=== PATIENT | male | born 1960 | race Caucasian/White ===

== ENCOUNTER 2022-01-03 05:55 | Outpatient (RCR) | payer BC, SELFPAY ==
[2022-01-03 06:15] LABS: Hematocrit 36.6 % (37.0-53.0); Hemoglobin* 11.9 gm/dL (13.5-17.5); Mean Corpuscular HGB Conc 33 gm/dL (32-36); Mean Corpuscular Hemoglobin 28 pg (26-34); Mean Corpuscular Volume 87 fL (80-100); Neutrophils Percent Auto 59.2 % (42.0-72.0); Platelet Count* 132 K/uL (140-440); RDW Coefficient of Variation % 16.2 % (11.5-15.5)
[2022-01-03 06:16] LABS: Basophils Absolute Auto 0.02 K/uL (0.00-0.30); Basophils Percent Auto 0.4 % (0.0-3.0); Eosinophils Absolute Auto 0.19 K/uL (0.00-0.50); Eosinophils Percent Auto 3.8 % (0.0-7.0); Immature Granulocytes Abs Auto 0.03 K/uL (0.00-0.30); Lymphocytes Absolute Auto 1.45 K/uL (0.90-2.90); Neutrophils Absolute Auto 2.96 K/uL (1.7-7.0)
[2022-01-03 06:17] LABS: Slide Review Reflex No
--- NOTE | 2022-01-03 17:39 | ONC.NURNOTE ---
Dr. Noonan reviewed labs and patient was called and given results. Platelets slightly lower then 11/29/2021 but still in good range. Plan is for redraw in 4 weeks
== END 2022-01-20 23:59 | disposition home or self-care (01) ==
LOC: CCIC 05:55
PROVIDERS: PCP Family Medicine; Visit Provider Internal Medicine Hematology & Oncology
DX: D69.6 Thrombocytopenia, unspecified (principal); D64.9 Anemia, unspecified
CPT/HCPCS: 36415; 85025

== ENCOUNTER 2022-02-18 05:36 | Outpatient (RCR) | payer BC, SELFPAY ==
[2022-02-18 06:19] LABS: Basophils Absolute Auto 0.03 K/uL (0.00-0.30); Basophils Percent Auto 0.6 % (0.0-3.0); Eosinophils Absolute Auto 0.17 K/uL (0.00-0.50); Eosinophils Percent Auto 3.3 % (0.0-7.0); Hemoglobin* 11.5 gm/dL (13.5-17.5); Immature Granulocytes Abs Auto 0.04 K/uL (0.00-0.30); Lymphocytes Absolute Auto 1.31 K/uL (0.90-2.90); Lymphocytes Percent Auto 25.2 % (20-44); Mean Corpuscular HGB Conc 32 gm/dL (32-36); Mean Corpuscular Hemoglobin 29 pg (26-34); Mean Corpuscular Volume 92 fL (80-100); Monocytes Percent Auto 8.3 % (0.0-11.0); Neutrophils Absolute Auto 3.21 K/uL (1.7-7.0); Neutrophils Percent Auto 61.8 % (42.0-72.0); Platelet Count* 156 K/uL (140-440); RDW Coefficient of Variation % 16.1 % (11.5-15.5); Red Blood Count 3.92 m/uL (4.30-5.90); White Blood Count* 5.19 K/uL (4.50-11.00)
[2022-02-18 06:21] LABS: Slide Review Reflex No
--- NOTE | 2022-02-22 15:04 | ONC.NURNOTE ---
Patient called and screenplay writer let him know that Dr. Noonan reviewed his platelets and they are now WNL so no further need for hematology. She believes it was due to his sepsis.
== END 2022-08-17 23:59 | disposition home or self-care (01) ==
LOC: CCIC 05:36
PROVIDERS: PCP Family Medicine; Visit Provider Internal Medicine Hematology & Oncology
DX: D69.6 Thrombocytopenia, unspecified (principal)
CPT/HCPCS: 36415; 85025

== ENCOUNTER 2022-07-31 10:58 | Outpatient (CLI) | payer BC, SELFPAY ==
[2022-07-31 13:51] LABS: Chloride* 112 mmol/L (96-114)
[2022-07-31 13:52] LABS: Potassium* 5.7 mmol/L (3.6-5.1); Sodium* 141 mmol/L (135-149)
[2022-07-31 13:54] LABS: Estimated Glomerular Filt Rate 37 ml/min
[2022-07-31 13:55] LABS: Blood Urea Nitrogen* 53 mg/dL (7-30); Calcium* 8.8 mg/dL (8.4-10.6); Carbon Dioxide* 24 mmol/L (20-32); Glucose* 263 mg/dL (60-115)
[2022-07-31 13:58] LABS: Cholesterol* 223 mg/dL (90-199); HDL Cholesterol* 29 mg/dL (>=40)
[2022-07-31 14:51] LABS: LDL Cholesterol Calculated 61 mg/dL (<100); Triglycerides* 667 mg/dL (40-149)
[2022-07-31 15:48] LABS: Creatinine Urine 64.6 mg/dL
[2022-07-31 17:20] LABS: Microalbumin Creatinine Ratio 2810 mg/g (0-30); Microalbumin Urine 182 mg/dL
== END 2022-07-31 10:59 | disposition home or self-care (01) ==
PROVIDERS: PCP Family Medicine; Visit Provider Family Medicine
DX: E11.21 Type 2 diabetes mellitus with diabetic nephropathy (principal); E11.9 Type 2 diabetes mellitus without complications; I10 Essential (primary) hypertension; Z12.5 Encounter for screening for malignant neoplasm of prostate; Z79.4 Long term (current) use of insulin; D69.6 Thrombocytopenia, unspecified
CPT/HCPCS: 80048; 80061; 82043; 82570; 84153

== ENCOUNTER 2023-02-06 11:30 | Outpatient (CLI) | payer BC, SELFPAY ==
[2023-02-06 13:41] LABS: Basophils Absolute Auto 0.02 K/uL (0.00-0.30); Basophils Percent Auto 0.4 % (0.0-3.0); Eosinophils Absolute Auto 0.14 K/uL (0.00-0.50); Eosinophils Percent Auto 2.8 % (0.0-7.0); Hematocrit 37.2 % (37.0-53.0); Immature Granulocytes Abs Auto 0.02 K/uL (0.00-0.30); Immature Granulocytes Pct Auto 0.4 %; Lymphocytes Percent Auto 19.1 % (20-44); Mean Corpuscular HGB Conc 32 gm/dL (32-36); Mean Corpuscular Hemoglobin 30 pg (26-34); Mean Corpuscular Volume 92 fL (80-100); Monocytes Percent Auto 7.6 % (0.0-11.0); Neutrophils Absolute Auto 3.47 K/uL (1.7-7.0); Neutrophils Percent Auto 69.7 % (42.0-72.0); Platelet Count* 135 K/uL (140-440); RDW Coefficient of Variation % 14.9 % (11.5-15.5); Red Blood Count 4.03 m/uL (4.30-5.90); White Blood Count* 4.98 K/uL (4.50-11.00)
[2023-02-06 13:49] LABS: Slide Review Reflex No
[2023-02-06 14:15] LABS: Chloride* 105 mmol/L (96-114); Sodium* 138 mmol/L (135-149)
[2023-02-06 14:16] LABS: Potassium* 5.2 mmol/L (3.6-5.1)
[2023-02-06 14:18] LABS: Carbon Dioxide* 23 mmol/L (20-32); Cholesterol* 256 mg/dL (90-199); Creatinine* 1.9 mg/dL (0.5-1.5); Estimated Glomerular Filt Rate 39 ml/min
[2023-02-06 14:19] LABS: Blood Urea Nitrogen* 38 mg/dL (7-30); Calcium* 8.5 mg/dL (8.4-10.6); Glucose* 124 mg/dL (60-115); HDL Cholesterol* 24 mg/dL (>=40)
[2023-02-06 14:41] LABS: LDL Cholesterol Calculated -40 mg/dL (<100); Triglycerides* 1358 mg/dL (40-149)
== END 2023-02-06 11:31 | disposition home or self-care (01) ==
PROVIDERS: PCP Family Medicine; Visit Provider Family Medicine
DX: E11.9 Type 2 diabetes mellitus without complications (principal); I10 Essential (primary) hypertension; E78.2 Mixed hyperlipidemia; Z79.4 Long term (current) use of insulin
CPT/HCPCS: 80048; 80061; 85025

== ENCOUNTER 2023-04-14 13:14 | Outpatient (CLI) | payer BC, SELFPAY ==
[2023-04-14 22:01] LABS: Chloride* 111 mmol/L (96-114); Sodium* 143 mmol/L (135-149)
[2023-04-14 22:02] LABS: Potassium* 4.7 mmol/L (3.6-5.1)
[2023-04-14 22:04] LABS: Anion Gap 10 mEq/L (7-15); Blood Urea Nitrogen* 55 mg/dL (7-30); Carbon Dioxide* 22 mmol/L (20-32); Creatinine* 2.4 mg/dL (0.5-1.5); Estimated Glomerular Filt Rate 30 ml/min
[2023-04-14 22:05] LABS: Calcium* 8.7 mg/dL (8.4-10.6); Glucose* 85 mg/dL (60-115)
[2023-04-14 22:07] LABS: Basophils Percent Auto 0.2 % (0.0-3.0); Eosinophils Percent Auto 1.3 % (0.0-7.0); Hematocrit 38.4 % (37.0-53.0); Hemoglobin* 11.7 gm/dL (13.5-17.5); Lymphocytes Percent Auto 16.9 % (20-44); Mean Corpuscular HGB Conc 31 gm/dL (32-36); Mean Corpuscular Hemoglobin 29 pg (26-34); Mean Corpuscular Volume 96 fL (80-100); Monocytes Percent Auto 7.3 % (0.0-11.0); Neutrophils Percent Auto 73.4 % (42.0-72.0); Platelet Count* 169 K/uL (140-440); RDW Coefficient of Variation % 14.9 % (11.5-15.5); Red Blood Count 3.99 m/uL (4.30-5.90); White Blood Count* 5.32 K/uL (4.50-11.00)
[2023-04-14 22:08] LABS: Basophils Absolute Auto 0.01 K/uL (0.00-0.30); Eosinophils Absolute Auto 0.07 K/uL (0.00-0.50); Immature Granulocytes Abs Auto 0.05 K/uL (0.00-0.30); Immature Granulocytes Pct Auto 0.9 %
[2023-04-14 22:12] LABS: Slide Review Reflex No
[2023-04-14 22:34] LABS: PCR FLU A Negative PCR FLU A (Negative); PCR FLU B Negative PCR FLU B (Negative); PCR RSV Negative PCR RSV (Negative)
[2023-04-14 23:01] LABS: SARS PCR* Negative SARS-CoV-2 (Negative)
== END 2023-04-14 13:15 | disposition home or self-care (01) ==
PROVIDERS: PCP Family Medicine; Visit Provider Family Medicine
DX: R06.02 Shortness of breath (principal); I10 Essential (primary) hypertension; R06.09 Other forms of dyspnea
CPT/HCPCS: 80048; 85025; 87631

== ENCOUNTER 2023-04-16 11:53 | Emergency (ER) | payer BC, SELFPAY ==
[2023-04-16] VITALS (28 sets, daily range): BP systolic 148–192; BP diastolic 77–140; PULSE 60–73; RESP 16–20; TEMP 36.4; O2SAT 89–98; BMI 40.0
--- NOTE | 2023-04-16 13:03 | ED.GENADULT ---
HPI - General Adult General Time Seen by Provider: 13:03 Date Seen: 04/16/23 Chief complaint: Shortness of Breath/Dyspnea Stated complaint: Shortness of breath Time Seen by Provider: 04/16/23 13:00 History of Present Illness HPI narrative: 62-year-old male with a history of type 2 diabetes (diabetic peripheral neuropathy, gastroparesis, previous amputation of left toe) hyperlipidemia, hypertension, thrombocytopenia, sleep apnea, presents to the ER today for shortness of breath. He was seen by his primary care provider, Dr. Severino, 2 days ago on 04/14 for this checkup and shortness of breath. At that time patient had a negative COVID/influenza/RSV PCR. Chest x-ray showed ?no acute findings. ?. Patient was prescribed Lasix 40 mg daily. Also given empiric prescription for Azithromycin. He has been taking the Lasix for 2 days now, and has been urinating a fair amount, roughly every hour. He still has some peripheral edema in his legs and is not feeling any better with his breathing. He had more trouble sleeping overnight last night so came to the ER. He says that he does not have any history of heart disease, coronary disease, valvular disease, AFib, CHF. No previous known heart murmurs. He does not have any previous lung disease such as asthma/COPD. He has never smoked. No history of DVT/PE. He does have sleep apnea and uses CPAP but does not need oxygen at night. He does have some chronic peripheral edema, not really worse lately. He has had some chronic shortness of breath ever since he had a COVID infection 2 years ago but that is somewhat variable. He is normally able to walk at least a block without getting short of breath. Since last Friday he has had progressively worsening dyspnea on exertion and now can not even walk a few feet in his house without getting very short of breath and dizzy. He also gets mild chest pain. That is been fairly continuous for the past couple of days. No palpitations. He has not had a cough or a fever this week. Overall, not improving his outpatient therapy with furosemide, his felt compelled to bring him to the ER. She says he is so short of breath he can barely walk around the house anymore. Related Data Home Medications Medication Instructions Recorded Confirmed albuterol sulfate 90 mcg/actuation 2 puff inhalation Q4H PRN 07/13/22 10/23/23 aerosol inhaler insulin aspart U-100 100 unit/mL 1 sliding scale dose subcut .not 01/02/22 04/14/23 (3 mL) subcutaneous pen specified blood sugar diagnostic (Blood 02/20/22 04/14/23 Glucose Test strips) tolterodine 2 mg capsule,extended 2 mg PO DAILY 02/06/23 04/14/23 release 24 hr aspirin 81 mg tablet,delayed 81 mg PO DAILY 04/14/23 04/14/23 release modafinil 100 mg tablet 100 mg PO BID PRN 04/14/23 Previous Rx's Medication Instructions Recorded fluticasone propionate 50 2 spray intranasal QDAY #16 grams 02/21/22 mcg/actuation nasal spray,suspension (Flonase Allergy Relief) tamsulosin 0.4 mg capsule 0.4 mg PO Q24H #90 caps 07/29/22 gabapentin 800 mg tablet 800 mg PO Q12H #180 tabs 07/31/22 cephalexin 500 mg capsule 500 mg PO TID #30 caps 08/01/22 metoclopramide HCl 10 mg tablet 10 mg PO TID PRN nausea and 10/28/22 vomiting #270 tabs insulin glargine 100 unit/mL (3 60 unit (0.6 mL) subcut QAM 90 11/28/22 mL) subcutaneous pen ( #60 mL KwikPen U-100 Insulin) chlorthalidone 25 mg tablet 25 mg PO QDAY #90 tabs 01/28/23 hydralazine 25 mg tablet 50 mg (2 x 25 mg) PO BID #360 tabs 02/06/23 fenofibrate 160 mg tablet 160 mg PO QDAY #90 tabs 02/11/23 metformin 500 mg tablet,extended 1,000 mg (2 x 500 mg) PO BID #360 02/13/23 release 24 hr tabs carvedilol 25 mg tablet 50 mg (2 x 25 mg) PO BID #360 tabs 03/25/23 furosemide 40 mg tablet (Lasix) 40 mg PO QAM #30 tabs 04/14/23 azithromycin 250 mg tablet See Rx Instructions PO .COMPLEX #6 04/15/23 (Zithromax Z-Pawel) tabs Allergies Allergy/AdvReac Type Severity Reaction Status Date / Time No Known Drug Allergies Allergy Verified 04/14/23 12:55 [facility] Medical History (Updated 04/16/23 @ 16:58 by Sanchez Madden MD) Mixed hyperlipidemia ?E78.2 - Mixed hyperlipidemia (ICD-10) Narcolepsy ?G47.419 - Narcolepsy without cataplexy (ICD-10) Allergic rhinitis ?J30.9 - Allergic rhinitis, unspecified (ICD-10) Sepsis due to methicillin resistant Staphylococcus aureus (MRSA) (01/20/17) ?A41.02 - Sepsis due to Methicillin resistant Staphylococcus aureus (ICD-10) History of sepsis (01/2017) ?Z86.19 - Personal history of other infectious and parasitic diseases (ICD-10) History of methicillin resistant Staphylococcus aureus infection (04/2008) ?Z86.14 - Personal history of Methicillin resistant Staphylococcus aureus infection (ICD-10) 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 ?S98.132A - Complete traumatic amputation of one left lesser toe, initial encounter (ICD-10) Osteomyelitis of left foot ?M86.9 - Osteomyelitis, unspecified (ICD-10) COVID-19 virus infection ?U07.1 - COVID-19 (ICD-10) Cellulitis of right lower leg ?L03.115 - Cellulitis of right lower limb (ICD-10) Hyperlipidemia ?E78.5 - Hyperlipidemia, unspecified (ICD-10) Microalbuminuria ?R80.9 - Proteinuria, unspecified (ICD-10) Trigger thumb of both hands ?M65.311 - Trigger thumb, right thumb (ICD-10) ?M65.312 - Trigger thumb, left thumb (ICD-10) Umbilical hernia ?K42.9 - Umbilical hernia without obstruction or gangrene (ICD-10) Venous stasis ?I87.8 - Other specified disorders of veins (ICD-10) Vitamin D deficiency ?E55.9 - Vitamin D deficiency, unspecified (ICD-10) MRSA (methicillin resistant Staphylococcus aureus) ?A49.02 - Methicillin resistant Staphylococcus aureus infection, unspecified site (ICD-10) Diabetic polyneuropathy ?E11.42 - Type 2 diabetes mellitus with diabetic polyneuropathy (ICD-10) PVD (peripheral vascular disease) ?I73.9 - Peripheral vascular disease, unspecified (ICD-10) Diabetic nephropathy ?E11.21 - Type 2 diabetes mellitus with diabetic nephropathy (ICD-10) Diabetic retinopathy ?E11.319 - Type 2 diabetes mellitus with unspecified diabetic retinopathy without macular edema (ICD-10) HTN (hypertension) ?I10 - Essential (primary) hypertension (ICD-10) Erectile dysfunction ?N52.9 - Male erectile dysfunction, unspecified (ICD-10) Thrombocytopenia ?D69.6 - Thrombocytopenia, unspecified (ICD-10) Diabetic gastroparesis ?E11.43 - Type 2 diabetes mellitus with diabetic autonomic (poly)neuropathy (ICD-10) ?K31.84 - Gastroparesis (ICD-10) Surgical History (Updated 02/20/22 @ 07:54 by Sabrina Aldana ~ PSR) History of arthroscopy of right knee (1977) ?Z98.890 - Other specified postprocedural states (ICD-10) History of arthroplasty of right knee ?Z96.651 - Presence of right artificial knee joint (ICD-10) Family History (Updated 02/20/22 @ 08:02 by Sabrina Aldana ~ PSR) Brother Colon cancer Prostate cancer Diabetes Father Heart disease Social History (Updated 02/20/22 @ 08:03 by Sabrina Aldana ~ PSR) 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 Alert. Conversant. Able to speak full sentences while sitting up on the edge of his bed. He feels more comfortable sitting up than lying back. He looks tired, but overall Non toxic. HENT: Head: Atraumatic. Nose: Nose normal. Mouth/Throat: Oral mucosa is clear and moist. no trismus. Pharynx normal. Tonsils symmetric. No tonsillar enlargement, erythema, or exudate. Eyes: Conjunctivae normal. EOM normal. Pupils equal, round, and reactive to light. No scleral icterus. Neck: Normal range of motion. Neck supple. No tracheal deviation present. No visible JVD. Cardiovascular: Normal rate, regular rhythm. No gallop. No friction rub. No murmur heard. Symmetric radial artery pulses Pulmonary/Chest: Effort normal. No stridor. No respiratory distress. No wheezes. No rales. No rhonchi . No tenderness. Abdominal: Soft. Bowel sounds normal. No distension. No mass. No tenderness. No rebound. No guarding. Musculoskeletal: RUE: Normal range of motion. No tenderness. No deformity LUE: Normal range of motion. No tenderness. No deformity RLE: Normal range of motion. 2+ edema. No tenderness. No deformity LLE: Normal range of motion. 2+ edema. No tenderness. No deformity Neurological: Alert and oriented to person, place, and time. Normal strength. CN II-VII intact. No sensory deficit. GCS eye subscore is 4. GCS verbal subscore is 5. GCS motor subscore is 6. Normal coordination Skin: Skin is warm and dry. No rash noted. No pallor. Normal capillary refill. Psychiatric: Normal mood. Normal affect. Const: Vital Signs, click to edit/add: Vital Signs - 24 hr 04/16/23 12:15 04/16/23 13:43 04/16/23 13:45 Temperature 97.5 F L Pulse Rate 60 63 Pulse Rate [Right Pulse Oximeter] 64 Respiratory Rate 20 18 Blood Pressure 159/92 H Blood Pressure [Ri ght Upper Arm] 154/82 H Pulse Oximetry 92 94 92 Oxygen Delivery Me thod Room Air 04/16/23 13:46 04/16/23 14:08 04/16/23 14:15 Temperature Pulse Rate 64 68 63 Pulse Rate [Right Pulse Oximeter] Respiratory Rate Blood Pressure Blood Pressure [Ri ght Upper Arm] Pulse Oximetry 92 89 96 Oxygen Delivery Me thod 04/16/23 14:18 04/16/23 14:19 04/16/23 14:30 Temperature Pulse Rate 63 63 63 Pulse Rate [Right Pulse Oximeter] Respiratory Rate 16 Blood Pressure 164/88 H Blood Pressure [Ri ght Upper Arm] Pulse Oximetry 94 92 91 Oxygen Delivery Me thod 04/16/23 14:32 04/16/23 14:45 04/16/23 15:00 Temperature Pulse Rate 63 64 65 Pulse Rate [Right Pulse Oximeter] Respiratory Rate 16 Blood Pressure 148/87 H Blood Pressure [Ri ght Upper Arm] Pulse Oximetry 95 94 96 Oxygen Delivery Me thod 04/16/23 15:01 04/16/23 16:01 04/16/23 16:05 Temperature Pulse Rate 70 72 66 Pulse Rate [Right Pulse Oximeter] Respiratory Rate Blood Pressure 156/140 H 192/95 H Blood Pressure [Ri ght Upper Arm] Pulse Oximetry 92 89 93 Oxygen Delivery Me thod 04/16/23 16:33 04/16/23 17:04 04/16/23 17:06 Temperature Pulse Rate 73 71 Pulse Rate [Right Pulse Oximeter] Respiratory Rate Blood Pressure 149/90 H 149/77 H Blood Pressure [Ri ght Upper Arm] Pulse Oximetry 93 94 Oxygen Delivery Me thod 04/16/23 17:15 04/16/23 17:30 04/16/23 17:32 Temperature Pulse Rate 72 68 70 Pulse Rate [Right Pulse Oximeter] Respiratory Rate Blood Pressure 169/97 H Blood Pressure [Ri ght Upper Arm] Pulse Oximetry 95 95 94 Oxygen Delivery Me thod 04/16/23 17:45 04/16/23 17:46 04/16/23 18:00 Temperature Pulse Rate 69 63 70 Pulse Rate [Right Pulse Oximeter] Respiratory Rate Blood Pressure 176/99 H Blood Pressure [Ri ght Upper Arm] Pulse Oximetry 98 97 96 Oxygen Delivery Me thod 04/16/23 18:03 04/16/23 18:15 04/16/23 18:30 Temperature Pulse Rate 68 66 67 Pulse Rate [Right Pulse Oximeter] Respiratory Rate Blood Pressure 174/98 H Blood Pressure [Ri ght Upper Arm] Pulse Oximetry 96 95 96 Oxygen Delivery Me thod 04/16/23 18:32 Temperature Pulse Rate 66 Pulse Rate [Right Pulse Oximeter] Respiratory Rate Blood Pressure 179/106 H Blood Pressure [Ri ght Upper Arm] Pulse Oximetry 97 Oxygen Delivery Me thod Course Vital Signs Vital signs: Initial Vital Signs Temperature 97.5 F L 04/16/23 12:15 Temperature Source Temporal Artery Scan 04/16/23 12:15 Pulse Rate 64 04/16/23 12:15 Respiratory Rate 20 04/16/23 12:15 Blood Pressure 154/82 H 04/16/23 12:15 Blood Pressure Mean 106 H 04/16/23 12:15 Blood Pressure Position Sitting 04/16/23 12:15 Pulse Oximetry 92 04/16/23 12:15 Oxygen Delivery Method Room Air 04/16/23 12:15 Vital Signs Temperature 97.5 F L 04/16/23 12:15 Pulse Rate 64 04/16/23 12:15 Respiratory Rate 20 04/16/23 12:15 Blood Pressure 154/82 H 04/16/23 12:15 Pulse Oximetry 92 04/16/23 12:15 Oxygen Delivery Method Room Air 04/16/23 12:15 Temperature 97.5 F L 04/16/23 12:15 Pulse Rate 66 04/16/23 18:32 Respiratory Rate 16 04/16/23 14:32 Blood Pressure 179/106 H 04/16/23 18:32 Pulse Oximetry 97 04/16/23 18:32 Oxygen Delivery Method Room Air 04/16/23 12:15 Medical Decision Making MDM Narrative Medical decision making narrative: This patient presents to the ER today for evaluation of dyspnea on exertion, orthopnea, ongoing for the past week or so, along with well as mild chest pain for the past couple of days. Differential was broad. No evidence of palpitations, syncope or other cardiac dysrhythmia. We considered possible ACS, however history would not be suggestive for that. EKG shows nonspecific changes but troponin is positive. Ultimately suspect this is due to right heart strain from PE. HPI was suggestive for possible CHF . He does have some chronic bilateral lower extremity edema. BNP is elevated. One He has already been on outpatient diuretics from his primary care but is not improving. Curiously chest x-ray was clear 2 days ago (not showing pulmonary edema) and again today Chest x-ray shows no evidence for pneumonia, pneumothorax, pulmonary edema, pleural effusion, rib fracture, cardiomegaly. Ultimately I suspect his abnormal troponin and BNP are due to right heart strain from this pulmonary embolism. Mediastinum is normal on the x-ray. The patient has no ripping or tearing pain through to the back and has symmetric pulses on exam, no other acute neuro findings so I doubt aortic dissection. Risk of radiation and contrast exposure would outweigh the benefit of CT aorta angiogram. We considered PE for this patient. Abnormal D-dimer prompted CT PA. By my review the patient does have a large volume of clot burden with pulmonary emboli. He has a saddle PE as well as multiple clots affecting both lungs. Upon reviewing the chest CT results I placed a consult through to [facility] Radiology for stat read by Radiology to confirm my suspicions. I also had our x-ray department transmit images to [facility]. Patient started on heparin. Patient and updated on my initial impressions. Despite his large clot burden his blood pressure is normal, oxygen is in the 90s on room air. He is strongly symptomatic and really is short of breath when he lays flat or when he tries to walk even a couple of feet. He is relatively comfortable while sitting straight up. CT was read by the radiologist. He called me to confirm that there is a large clot burden. CT also shows evidence for intraventricular septum flattening suggestive of right ventricular strain (which would correlate with the patient's lab findings). I had conversations with the plate slitter and inspector from [place] ) Dr. Hughes) as well as with interventional radiologist from [place]. We discussed the patient's presentation, vital signs, lab findings. They were able to review the CT images. Recommended plan of care would be to can you on heparin for now admit to the ICU at [facility] for initial monitoring. Plan would be to go for suction thrombectomy probably tomorrow morning unless he becomes more unstable. Hold off on half dose lytics at this time. Patient remained norm ox sick here in the ER but was placed on nasal cannula and attempt to make him breathe more comfortably. Sats remained in the 90s. No signs of impending respiratory failure, blood pressure instability. Updated the patient and his about the findings of large volume pulmonary emboli, right heart strain. They agree with our plan to transfer higher level of care and thrombectomy. Questions answered. He was transferred by EMS with his heparin drip continuing. Critical care addendum: Critical care time for this patient, excluding procedures, was 45-55 minutes. Lab Data Labs: Lab Results 04/16/23 04/16/23 Range/Units 13:42 16:52 WBC 5.49 (4.50-11.00) K/uL RBC 3.93 L (4.30-5.90) m/uL Hgb 11.7 L (13.5-17.5) gm/dL Hct 37.9 (37.0-53.0) % MCV 96 (80-100) fL MCH 30 (26-34) pg MCHC 31 L (32-36) gm/dL RDW Coeff of Bill 15.0 (11.5-15.5) % Plt Count 162 (140-440) K/uL Neut % (Auto) 76.1 H (42.0-72.0) % Lymph % (Auto) 13.1 L (20-44) % [place] % (Auto) 7.8 (0.0-11.0) % Eos % (Auto) 2.4 (0.0-7.0) % Baso % (Auto) 0.4 (0.0-3.0) % Neut # (Auto) 4.20 (1.7-7.0) K/uL Lymph # (Auto) 0.70 L (0.90-2.90) K/uL [place] # (Auto) 0.40 (0.00-0.90) K/UL Eos # (Auto) 0.13 (0.00-0.50) K/uL Baso # (Auto) 0.02 (0.00-0.30) K/uL Abs Immat Gran (auto) 0.01 (0.00-0.30) K/uL Imm/Tot Granulo (auto) 0.2 % INR 1.14 H (0.91-1.10) APTT 26 (23-33) Seconds D-Dimer Quant (PE/DVT) 3.95 H (0.00-0.50) ug/ml Sodium 144 (135-149) mmol/L Potassium 4.4 (3.6-5.1) mmol/L Chloride 110 (96-114) mmol/L Carbon Dioxide 27 (20-32) mmol/L Anion Gap 7 (7-15) mEq/L BUN 57 H (7-30) mg/dL Creatinine 2.4 H (0.5-1.5) mg/dL Estimated Creat Clear 35.03 Estimated GFR 30 ml/min Glucose 78 (60-115) mg/dL Lactate 1.0 (0.5-1.9) mmol/L Calcium 8.9 (8.4-10.6) mg/dL Troponin I 0.20 H* 0.21 H* (0.01-0.04) ng/mL NT-Pro-B Natriuret Pep 28693 pg/mL Imaging Data Chest x-ray: Attestation: I have reviewed the pertinent imaging results. My impression: no CHF Radiologist's impression: IMPRESSION: Lungs are clear. No acute findings. Cardiomegaly. No pulmonary edema. CT scan - chest: Attestation: I have reviewed the pertinent imaging results. My impression: large saddle pe with extensive clot burden. CRL called for STAT read Radiologist's impression: IMPRESSION: Acute saddle embolism extending throughout all lobes of the lung, but predominantly on the right side. Additional mild flattening of the interventricular septum concerning for early right heart strain. No focal consolidations. Case discussed with Sanchez Madden at 4:46 p.m. on 04/16/2023. ECG Data Attestation: I personally reviewed and interpreted this ECG as follows: Interpretation: Normal sinus rhythm rate 65 CA 138 QRS axis : Incomplete right bundle-branch block. Left anterior fascicular block. Left axis deviation. No pathologic Q-wave ST segment/T wave: No ST segment elevation depression. T-wave flattening, nonspecific, in all leads. QTc: 449 Discharge Plan Discharge Clinical Impression: Elevated troponin, Acute saddle pulmonary embolus Prescriptions: No Action (DME) Blood Glucose Test Strip See Rx Instructions .Route Rx Instructions: Use to check blood glucose 4 times daily fluticasone propionate [Flonase Allergy Relief] 50 mcg/actuation spray,suspension 2 spray intranasal QDAY Qty: 16 5RF Rx Instructions: administer into each nostril gabapentin 800 mg tablet 800 mg PO Q12H Qty: 180 3RF Patient Comments: TAKE 1 TABLET BY MOUTH TWICE DAILY cephalexin 500 mg capsule 500 mg PO TID Qty: 30 0RF modafinil 100 mg tablet 100 mg PO BID PRN furosemide [Lasix] 40 mg tablet 40 mg PO QAM Qty: 30 0RF tolterodine 2 mg capsule,extended release 24hr 2 mg PO DAILY hydralazine 25 mg tablet 50 mg PO BID Qty: 360 1RF Patient Comments: TAKE 1 TABLET BY MOUTH THREE TIMES DAILY albuterol sulfate 90 mcg/actuation HFA aerosol inhaler 2 puff INHALATION Q4H PRN Patient Comments: INHALE 2 PUFFS BY MOUTH EVERY 4 HOURS NEEDED FOR WHEEZING OR DIFFICULT BREATHING insulin aspart U-100 100 unit/mL (3 mL) insulin pen 1 sliding scale dose SUBCUT .not specified Patient Comments: sliding scale aspirin 81 mg tablet,delayed release (DR/EC) 81 mg PO DAILY tamsulosin 0.4 mg capsule 0.4 mg PO Q24H Qty: 90 3RF metoclopramide HCl 10 mg tablet 10 mg PO TID PRN (Reason: nausea and vomiting) Qty: 270 1RF insulin glargine [Basaglar KwikPen U-100 Insulin] 100 unit/mL (3 mL) insulin pen 60 unit SUBCUT QAM 90 Days Qty: 60 3RF chlorthalidone 25 mg tablet 25 mg PO QDAY Qty: 90 1RF fenofibrate 160 mg tablet 160 mg PO QDAY Qty: 90 0RF metformin 500 mg tablet extended release 24 hr 1,000 mg PO BID Qty: 360 3RF carvedilol 25 mg tablet 50 mg PO BID Qty: 360 0RF Rx Instructions: must administer with a meal/food azithromycin [Zithromax Z-Pawel] 250 mg tablet See Rx Instructions PO .COMPLEX Qty: 6 0RF Rx Instructions: For 250 mg dose pack: take 500 mg today (day 1), then 250 mg for 4 days (days 2-5) PO Follow Up/Referrals: Ru Severino MD [Primary Care Provider] -
--- NOTE | 2023-04-16 13:21 | CRLHL7_ITS ---
For Patients: As a result of the Century Cures Act, medical imaging exams and procedure reports are released immediately into your electronic medical record. You may view this report before your referring provider. If you have questions, please contact your health care provider. INDICATION: Dyspnea on exertion, orthopnea, chest pain COMPARISON: 04/14/2023 TECHNIQUE: PA and lateral 2 view chest radiograph. FINDINGS: The lungs are well expanded. No focal consolidations. No pulmonary edema. No pleural effusion. No pneumothorax. No pneumomediastinum. Large cardiomediastinal silhouette. Bones: Normal for age. IMPRESSION: Lungs are clear. No acute findings. Cardiomegaly. No pulmonary edema. Dictated by Sapna Joseph MD @ 04/16/2023 3:36:11 PM (Electronically Signed)
[2023-04-16 13:52] LABS: Basophils Absolute Auto 0.02 K/uL (0.00-0.30); Basophils Percent Auto 0.4 % (0.0-3.0); Eosinophils Absolute Auto 0.13 K/uL (0.00-0.50); Eosinophils Percent Auto 2.4 % (0.0-7.0); Hematocrit 37.9 % (37.0-53.0); Hemoglobin* 11.7 gm/dL (13.5-17.5); Immature Granulocytes Abs Auto 0.01 K/uL (0.00-0.30); Immature Granulocytes Pct Auto 0.2 %; Lymphocytes Percent Auto 13.1 % (20-44); Mean Corpuscular HGB Conc 31 gm/dL (32-36); Mean Corpuscular Hemoglobin 30 pg (26-34); Mean Corpuscular Volume 96 fL (80-100); Monocytes Percent Auto 7.8 % (0.0-11.0); Neutrophils Percent Auto 76.1 % (42.0-72.0); Platelet Count* 162 K/uL (140-440); Red Blood Count 3.93 m/uL (4.30-5.90); White Blood Count* 5.49 K/uL (4.50-11.00)
[2023-04-16 14:21] LABS: Chloride* 110 mmol/L (96-114); Potassium* 4.4 mmol/L (3.6-5.1); Sodium* 144 mmol/L (135-149)
[2023-04-16 14:23] LABS: Creatinine* 2.4 mg/dL (0.5-1.5); Est. Creatinine Clearance* 35.03; Estimated Glomerular Filt Rate 30 ml/min
[2023-04-16 14:24] LABS: Anion Gap 7 mEq/L (7-15); Blood Urea Nitrogen* 57 mg/dL (7-30); Calcium* 8.9 mg/dL (8.4-10.6); Carbon Dioxide* 27 mmol/L (20-32); Glucose* 78 mg/dL (60-115)
[2023-04-16 14:25] LABS: Slide Review Reflex No
[2023-04-16 14:34] LABS: NT Pro B Type NatriureticPept* 16000 pg/mL
[2023-04-16 14:39] LABS: D Dimer Quantitative* 3.95 ug/ml (0.00-0.50)
--- NOTE | 2023-04-16 14:50 | ED.NURSE ---
Reported a critical lab troponin of .[address] Madden.
--- NOTE | 2023-04-16 14:51 | CRLHL7_ITS ---
For Patients: As a result of the Century Cures Act, medical imaging exams and procedure reports are released immediately into your electronic medical record. You may view this report before your referring provider. If you have questions, please contact your health care provider. INDICATION: Dyspnea, shortness of breath. TECHNIQUE: CT chest PE was acquired with 100 cc Omnipaque 350 IV contrast. COMPARISON: None. FINDINGS: Heart and vasculature: Contrast opacification of the pulmonary arterial tree is adequate. Acute saddle embolism extending throughout all lobes of the lung, but predominantly on the right side. Flattening of the intraventricular septum concerning for early right heart strain. Prominent heart size with coronary artery calcifications. Thoracic aorta and pulmonary artery are normal in caliber. Lungs and pleura: Scattered atelectasis. No suspicious nodules or infiltrates. No pleural effusions, pleural thickening, or pneumothorax. Lymph nodes/mediastinum: No mediastinal, hilar, or axillary adenopathy. Chest wall: No masses. Upper abdomen: No acute or significant findings. Bones: Unremarkable for age. IMPRESSION: Acute saddle embolism extending throughout all lobes of the lung, but predominantly on the right side. Additional mild flattening of the interventricular septum concerning for early right heart strain. No focal consolidations. Case discussed with Sanchez Madden at 4:46 p.m. on 04/16/2023. Please note that all CT scans at this facility use dose modulation, iterative reconstruction, and/or weight-based dosing when appropriate to reduce radiation dose to as low as reasonably achievable. Dictated by Art Saldaña MD @ 04/16/2023 4:54:31 PM (Electronically Signed)
[2023-04-16] MEDS: ASPIRIN 81 MG TAB.CHEW 324 MG PO (15:12)
[2023-04-16] MEDS: HEPARIN 5,000 UNIT/0.5 ML INJ 10000 UNIT IVP (17:03)
[2023-04-16] MEDS: HEPARIN 25,000 UNIT/500 ML BAG 30 UNIT IV (17:07)
[2023-04-16] MEDS: 10 % DEXTROSE 500 ML 250 ML 100 ML IV (17:20)
[2023-04-16 17:21] LABS: INR 1.14 (0.91-1.10); Prothrombin Time 15.3 Seconds
[2023-04-16 17:22] LABS: Partial Thromboplastin Time* 26 Seconds (23-33)
[2023-04-16 17:30] LABS: Troponin I* 0.21 ng/mL (0.01-0.04)
--- NOTE | 2023-04-16 17:56 | ED.NURSE ---
Report given to Montez WEISS at [place] . Patient will be admitted to CVICU room 0178. EMS paged
--- NOTE | 2023-04-16 19:15 | ED.NURSE ---
Heparin running at 1500 units/hr when EMS arrived . patient has departed ER vis EMS
== END 2023-04-16 19:26 | disposition short-term general hospital (02) ==
LOC: ED 13:43
PROVIDERS: Emergency Provider Emergency Medicine; PCP Family Medicine
DX: I26.92 Saddle embolus of pulmonary artery without acute cor pulmonale (principal); R79.89 Other specified abnormal findings of blood chemistry
CPT/HCPCS: 36415; 71046; 71275; 80048; 83605; 83880; 84484; 85025; 85379; 85610; 85730; 93005; 99285; 99291; A9270; J1644; Q9967

== ENCOUNTER 2023-04-16 19:06 | Outpatient (CLI) | payer BC, SELFPAY | END 2023-04-16 19:07 | disposition home or self-care (01) | LOC: AMB 04-21 10:40 | PROVIDERS: PCP Family Medicine; Visit Provider Family Medicine | DX: I26.99 Other pulmonary embolism without acute cor pulmonale (principal) | CPT/HCPCS: 36415; 71046; 71275; 80048; 83605; 83880; 84484; 85025; 85379; 85610; 85730; 93005; 99285; 99291; A0425; A0434; A9270; J1644; Q9967 ==

== ENCOUNTER 2023-05-06 14:22 | Outpatient (REF) | payer BC, SELFPAY ==
[2023-05-06 14:55] LABS: Basophils Percent Auto 0.9 % (0.0-3.0); Eosinophils Percent Auto 4.4 % (0.0-7.0); Hematocrit 38.1 % (37.0-53.0); Hemoglobin* 12.3 gm/dL (13.5-17.5); Immature Granulocytes Pct Auto 1.2 %; Lymphocytes Percent Auto 19.7 % (20-44); Mean Corpuscular HGB Conc 32 gm/dL (32-36); Mean Corpuscular Hemoglobin 29 pg (26-34); Mean Corpuscular Volume 91 fL (80-100); Monocytes Percent Auto 7.2 % (0.0-11.0); Neutrophils Percent Auto 66.6 % (42.0-72.0); Platelet Count* 189 K/uL (140-440); RDW Coefficient of Variation % 13.9 % (11.5-15.5); White Blood Count* 4.31 K/uL (4.50-11.00)
[2023-05-06 14:56] LABS: Appearance Urine Turbid (Clear); Bilirubin Urine Negative (Negative); Color Urine Yellow (Yellow); Glucose Urine Trace (Negative); Ketones Urine Negative (Negative)
[2023-05-06 14:57] LABS: Blood Urine Trace-intact (Negative); Leukocyte Esterase Urine Trace (Negative); Nitrite Urine Negative (Negative); Protein Urine 3+ (Negative); Specific Gravity Urine 1.025 (1.000-1.030); pH Urine 5.5 (5.0-8.5)
[2023-05-06 15:12] LABS: Bacteria Urine Few; RBC Urine 0-2 (0-2)
[2023-05-06 15:13] LABS: Fine Granular Casts Urine Few
[2023-05-06 15:24] LABS: Slide Review Reflex No
[2023-05-06 15:28] LABS: Chloride* 110 mmol/L (96-114); Potassium* 4.8 mmol/L (3.6-5.1); Sodium* 135 mmol/L (135-149)
[2023-05-06 15:30] LABS: Creatinine* 1.9 mg/dL (0.5-1.5); Estimated Glomerular Filt Rate 39 ml/min
[2023-05-06 15:31] LABS: Anion Gap 0 mEq/L (7-15); Blood Urea Nitrogen* 41 mg/dL (7-30); Calcium* 8.9 mg/dL (8.4-10.6); Carbon Dioxide* 25 mmol/L (20-32); Glucose* 88 mg/dL (60-115); Phosphorus* 3.9 mg/dL (2.5-4.5)
[2023-05-06 15:40] LABS: PTH Intact* 47 pg/mL (15-65)
[2023-05-06 20:25] LABS: Total Protein Urine Random* 487 mg/dL
== END 2023-05-06 14:23 | disposition home or self-care (01) ==
LOC: NPINS 14:22
PROVIDERS: PCP Family Medicine; Visit Provider Internal Medicine
DX: N17.9 Acute kidney failure, unspecified (principal)
CPT/HCPCS: 36415; 80048; 81003; 81015; 82310; 83970; 84100; 84156; 85025; 87086

== ENCOUNTER 2023-05-20 08:05 | Outpatient (CLI) | payer BC, SELFPAY | END 2023-05-20 08:06 | disposition home or self-care (01) | LOC: NFLDREF 05-21 06:27 | PROVIDERS: PCP Family Medicine; Referring Provider Family Medicine; Visit Provider Family Medicine | DX: E78.2 Mixed hyperlipidemia (principal) | CPT/HCPCS: 80061 ==

== ENCOUNTER 2023-07-21 14:35 | Outpatient (REF) | payer BC, SELFPAY ==
[2023-07-21 17:04] LABS: Albumin* 3.5 g/dL (3.3-5.0); Chloride* 106 mmol/L (96-114); Potassium* 4.9 mmol/L (3.6-5.1); Sodium* 140 mmol/L (135-149)
[2023-07-21 17:07] LABS: Anion Gap 6 mEq/L (7-15); Blood Urea Nitrogen* 47 mg/dL (7-30); Calcium* 8.5 mg/dL (8.4-10.6); Carbon Dioxide* 28 mmol/L (20-32); Creatinine* 1.8 mg/dL (0.5-1.5); Estimated Glomerular Filt Rate 42 ml/min; Glucose* 200 mg/dL (60-115); Phosphorus* 3.7 mg/dL (2.5-4.5)
== END 2023-07-21 14:36 | disposition home or self-care (01) ==
LOC: NPINS 14:35
PROVIDERS: PCP Family Medicine
DX: N18.32 Chronic kidney disease, stage 3b (principal); E11.21 Type 2 diabetes mellitus with diabetic nephropathy; Z79.4 Long term (current) use of insulin; Z79.84 Long term (current) use of oral hypoglycemic drugs
CPT/HCPCS: 80069

== ENCOUNTER 2023-09-17 14:30 | Outpatient (REF) | payer BC, SELFPAY ==
[2023-09-17 15:41] LABS: Albumin* 3.7 g/dL (3.3-5.0); Chloride* 107 mmol/L (96-114); Sodium* 141 mmol/L (135-149)
[2023-09-17 15:42] LABS: Potassium* 4.8 mmol/L (3.6-5.1)
[2023-09-17 15:44] LABS: Anion Gap 7 mEq/L (7-15); Blood Urea Nitrogen* 46 mg/dL (7-30); Carbon Dioxide* 27 mmol/L (20-32); Creatinine* 1.9 mg/dL (0.5-1.5); Estimated Glomerular Filt Rate 39 ml/min
[2023-09-17 15:45] LABS: Calcium* 9.4 mg/dL (8.4-10.6); Glucose* 117 mg/dL (60-115); Phosphorus* 5.9 mg/dL (2.5-4.5)
[2023-09-17 15:47] LABS: Creatinine Urine 109.7 mg/dL
[2023-09-17 18:46] LABS: Microalbumin Creatinine Ratio 3530 mg/g (0-30); Microalbumin Urine 388 mg/dL
== END 2023-09-17 14:31 | disposition home or self-care (01) ==
LOC: NPINS 14:30
PROVIDERS: PCP Family Medicine; Visit Provider Internal Medicine Nephrology
DX: E11.21 Type 2 diabetes mellitus with diabetic nephropathy (principal)
CPT/HCPCS: 80069; 82043; 82570

== ENCOUNTER 2024-03-01 13:43 | Outpatient (REF) | payer BC, SELFPAY ==
--- OUTSIDE RECORDS SUMMARY | 2024-03-01 13:46 | XMS_ITS ---
Author Organization [facility] Address [address] [place] [address] Care Team Providers Care Blackjack Supervisor Name Role Phone Unavailable Unavailable Unavailable Surgery Details Not on file Complications Check Surgery Details section. Procedure Estimated Blood Loss Check Surgery Details section. Procedure Findings Check Surgery Details section. Procedure Specimens Taken Check Surgery Details section.
--- OUTSIDE RECORDS SUMMARY | 2024-03-01 13:46 | XMS_ITS | Clinical Summary ---
Author Organization [employer] Address [place], [place] [address] Care Team Providers Care Drying Oven Tender Name Role Phone Ru Severino MD Primary Care Provider + Allergies No known active allergies Medications Medication Sig Dispensed Refills Start Date End Date Status vitamin B complex (VITAMIN B COMPLEX) tablet Take 1 Tablet by mouth once daily. 0 05/11/2010 Active aspirin-caffeine (JUSTINE BACK AND BODY) 500-32.5 mg tab Take 2 Tablets by mouth every 6 hours if needed. Active albuterol HFA (PRO-AIR,VENTOLIN ,PROVENTIL) 90 mcg/actuation inhalerIndication s:SOB (shortness of breath) Inhale 2 Puffs by mouth 4 times daily if needed (SOB, wheezing). 1 Inhaler 07/11/2017 Active tamsulosin (FLOMAX) 0.4 mg capsuleIndication s:Urinary frequency TAKE 1 CAPSULE BY MOUTH EVERY DAY AFTER A MEAL 90 capsule 06/15/2019 Active metoclopramide HCl (REGLAN) 10 mg tablet Take 10 mg by mouth 2 times daily. 06/12/2021 Active carvediloL (Coreg) 25 mg tablet Take 50 mg by mouth 2 times daily. Active Basaglar KwikPen U-100 Insulin 100 unit/mL (3 mL) pen Inject 60 units subcutaneous every morning. Active hydrALAZINE (APRESOLINE) 25 mg tablet Take 50 mg by mouth two times daily. Active modafiniL (PROVIGIL) 100 mg tablet Take 100 mg by mouth 2 times daily if needed (for driving long distances). Active tolterodine (DETROL LA) 2 mg Extended-Release capsule Take 2 mg by mouth at bedtime. Active metFORMIN (GLUCOPHAGE XR) 500 mg Extended-Release tablet Take 1,000 mg by mouth two times daily with meals. Active insulin aspart U-100 (NOVOLOG) 100 unit/mL injection Inject 10-22 units subcutaneous three times daily with meals. Active apixaban (Eliquis DVT-PE Treat 30D Start) tablet in a dose packIndications:O ther acute pulmonary embolism without acute cor pulmonale (HC) Take 2 tablets by mouth at bedtime tonight, then Take 2 tablets (10 mg) by mouth twice daily for 5 days, then take 1 tablet by mouth twice daily thereafter. 74 Tablet 04/19/2023 Active bumetanide (BUMEX) 1 mg tablet Take 3 mg by mouth every morning. 05/29/2023 05/28/2024 Active Active Problems Problem Noted Date Diagnosed Date Nephrotic syndrome 04/30/2023 Acute pulmonary embolism without acute cor pulmo nale 04/16/2023 Osteomyelitis of left foot 08/28/2021 Diabetic foot infection 08/23/2021 SOB (shortness of breath) 07/27/2021 Morbid obesity due to excess calories 07/27/2021 Ascending aorta dilatation 07/27/2021 Peripheral vascular disease, unspecified 018 Retinopathy 06/02/2018 Overview (06/02/2018): mild Renal dysfunction 06/02/2018 Overview (06/02/2018): elevated urine micro Sepsis due to methicillin re sistant Staphylococcus aureus (MRSA) 01/20/2017 Hypophosphatemia 01/20/2017 Generalized edema 01/20/2017 Cellulitis of leg without foot, left 01/19/2017 History of MRSA infection 03/01/2016 Type 2 diabetes mellitus with diabetic nephropat hy 06/10/2015 GERTRUDE 07/04/2014 07/28/2014 Overview (06/02/2018): Has CPAP Umbilical hernia 09/12/2013 Microalbuminuria 09/12/2013 Hyperlipidemia 03/27/2011 HTN (hypertension) 12/02/2008 Diabetic neuropathy 12/02/2008 MRSA (methicillin resistant staph aureus) cultur e positive 04/23/2008 Overview (12/10/2013): Left Leg Family hx of colon cancer Resolved Problems Problem Noted Date Diagnosed Date Resolved Date Systemic inflammatory respon se syndrome (SIRS) due to infection 01/19/2017 01/20/2017 Cellulitis 03/03/2016 01/20/2017 ISH (acute kidney injury) 03/03/2016 Sepsis 03/01/2016 01/20/2017 Thrombocytopenia 03/01/2016 01/20/2017 Acute renal failure (ARF) 03/01/2016 Diabetes mellitus, type 2 05/19/2012 Mixed hyperlipidemia 05/16/2008 011 Essential hypertension, benign 05/16/2008 12/02/2008 Morbid obesity 05/16/2008 07/07/2012 DIABETES 05/14/2002 05/19/2012 Immunizations Name Administration Dates Next Due Influenza, IIV3 (Age >=3 years) 06/01/2013,05/23,03/28/2009 Influenza, IIV4 06/02/2018,06/06/2015 Td (Age >=7 Years) 08/21/1997 Tdap 06/30/2009 Family History Medical History Relation Name Comments Cancer Brother 1 Diabetes Brother 1 age 20 Cancer-colon Brother 2 Uvaldo Heart Disease Father from [place] at age 48 Asthma Mother at age 77 Relation Name Status Comments Brother 1 Brother 2 Uvaldo Father Mother Social History Tobacco Use Types Packs/Day Years Used Date Smoking Tobacco: Never Smokeless Tobacco: Former Tobacco Cessation:Counseling Given: Yes Alcohol Use Standard Drinks/Week Comments Yes 4 (1 standard drink = 0.6 oz pur e alcohol) occasional Social Connections Answer Date Recorded Frequency of Communication with Friends and Fami ly 0 04/16/2023 Financial Resource Strain Answer Date R ecorded Difficulty of Paying Living Expenses 3 04/16/2023 Difficulty of Paying Living Expenses Not on file 04/16/2023 Food Insecurity Answer Date Recorded Worried About Running Out of Food in the Last Ye ar 1 04/16/2023 Transportation Needs Answer Date Record ed Lack of Transportation (Medical) 1 04/16/2023 Housing Stability Answer Date Recorded Unable to Pay for Housing in the Last Year 1 04/16/2023 Sex and Gender Information Value Date Recorded Sex Assigned at Not on file Gender Identity Not on file Sexual Orientation Not on file Obstetrics History Last Filed Vital Signs Vital Sign Reading Time Taken Comments Blood Pressure 138/76 07/08/2023 10:48 AM MANUFACTURING ASSOCIATE Pulse 68 07/08/2023 10:48 AM MANUFACTURING ASSOCIATE Temperature 36.6 ??C (97.8 ??F) 04/19/2023 11:37 AM C DT Respiratory Rate 16 04/19/2023 11:37 AM CDT Oxygen Saturation 95% 07/08/2023 10:48 AM MANUFACTURING ASSOCIATE Inhaled Oxygen Concentration - - Weight 139.3 kg (307 lb) 07/08/2023 10:48 AM MANUFACTURING ASSOCIATE Height 182.9 cm (6') 07/08/2023 10:48 AM MANUFACTURING ASSOCIATE Body Mass Index 41.64 07/08/2023 10:48 AM MANUFACTURING ASSOCIATE Plan of Treatment Health Maintenance Due Date Last Done Comments Pneumococcal series for age 6-64 (1 of 2 - PCV) 1966 HIV for age 15-65 1975 Hepatitis C screening for ag e 18-79 1978 Zoster (shingles) series for age 50+ (1 of 2) 2010 Depression screening for age 12+ 08/12/2018 08/12/2017, 08/12/2017, 12/22/2015 Tetanus booster 06/30/2019 06/30/2009, 08/21/1997 Lipids for age 45-75 06/02/2023 06/02/2018, 12/10/2017, 12/10/2017, Additional history exists COVID-19 vaccine series ( season) 2024 10/01/2021, 10/12/2020, 09/14/2020 Influenza for age 50-64 02/22/2024 06/02/20 18, 06/06/2015, 06/01/2013, Additional history exists BMI (ht and wt on same day) for age 18+ 07/08/2024 07/08/2023, 06/02/2018, 08/12/2017, Additional history exists Colonoscopy through age 75 05/19/2028 05/19/2018 Tdap Completed 06/30/2009 Procedures Procedure Name Priority Date/Time Associated Diagnosis Comments LIPID PANEL Routine 06/02/2018 12:45 PM MANUFACTURING ASSOCIATE Hyperlipidemia, unspecified hyperlipidemia type COLONOSCOPY 05/19/2018 12:59 PM MANUFACTURING ASSOCIATE from Last 3 Months or Most Recently Relevant to Health Maintenance Results * (ABNORMAL) LIPID PANEL (06/02/2018 12:45 PM MANUFACTURING ASSOCIATE) CHOLESTEROL,TOTAL 124 100 - 199 mg/dL 06/02/2018 1:15 PM MANUFACTURING ASSOCIATE [facility] TRIGLYCERIDES 332(H) <150 mg/dL 06/02/2018 1:15 PM MANUFACTURING ASSOCIATE [facility] HDL CHOLESTEROL 24(L) >40 mg/dL 8 1:15 PM MANUFACTURING ASSOCIATE [facility] NON-HDL CHOLESTEROL 100 <145 mg/dl 06/02/2018 1:15 PM MANUFACTURING ASSOCIATE [facility] CHOL/HDL RATIO 5.17(H) <4.50 06/02/2018 1:15 PM MANUFACTURING ASSOCIATE [facility] LDL CHOLESTEROL 34 <=130 mg/dL 06/02/2018 1:15 PM MANUFACTURING ASSOCIATE [facility] PROVIDER ORDERED STATUS RANDOM 06/02/2018 1:15 PM MANUFACTURING ASSOCIATE [facility] Blood BLOOD SPECIMEN / Unknown Venipuncture / Unknown 06/02/2018 12:45 PM MANUFACTURING ASSOCIATE 06/02/2018 12:47 PM MANUFACTURING ASSOCIATE Carlota [place] [address] * COLONOSCOPY (05/19/2018 12:59 PM MANUFACTURING ASSOCIATE) 05/19/2018 12:5 9 PM MANUFACTURING ASSOCIATE Narrative Transcriptions Nadja Chacon DO - 05/19/2018 5:55 PM CST Patient Name: Magen Luu Procedure Date: 05/19/2018 Gender: Male Date of : 1960 Admit Type: Ambulatory Procedure: Colonoscopy Proceduralist: Nadja Chacon MD [facility] Indications/Pre-Op Diagnosis: Screening in patient at increased risk: Colorectal cancer in brother before age 60, This is the patient's first colonoscopy Medications: Propofol per Anesthesia Procedure Description: The patient had risks, benefits and alternatives explained to andgave informed consent. The patient had a stable cardiopulmonary status and judged an adequate candidate for conscious sedation. The colonoscope was passed through the anus and advanced to thececum, identified by appendiceal orifice and ileocecal valve. Thecolonoscopy was performed without difficulty. The patient tolerated the procedure well. The quality of the bowel preparation was poor. The ileocecal valve, appendiceal orifice, and rectum were photographed. Complications: No immediate complications. Estimated Blood Loss & Specimen: Estimated blood loss: none. Specimen collected - None Findings: Hemorrhoids were found on perianal exam. Non-bleeding internal hemorrhoids were found during retroflexion. The hemorrhoids were Grade III (internal hemorrhoids that prolapse but require manual reduction). Impressions/Post-Op Diagnosis: - Preparation of the colon was poor. - Hemorrhoids found on perianal exam. - Non-bleeding internal hemorrhoids. - No specimens collected. Recommendation: - Discharge patient to home. - Patient has a contact number available for emergencies. The signsand symptoms of potential delayed complications were discussed with the patient. Return to normal activities tomorrow. Written discharge instructions were provided to the patient. - High fiber diet. - Continue present medications. - Repeat colonoscopy in 5 years for screening purposes. Moderate Sedation: Moderate (conscious) sedation was personally administered by an anesthesia professional. The following parameters were monitored:oxygen saturation, heart rate, blood pressure, and response to care. Nadja Chacon MD 05/19/2018 5:55:01 PM This report has been signed electronically. Note Initiated On: 05/19/2018 12:59 PM Nadja Chacon DO PROCEDURE ORD from Last 3 Months or Most Recently Relevant to Health Maintenance Additional Health Concerns Infection Onset Date Last Indicated MRSA Clearance Comment:Infection Control Note: Hx of MRSA, surveillance criteria met, no need for further testing or isolation precautions during this admission unless other medical issues warrant the need to do so. Do not delete or deactivate the FYI. #1 03/01/2015 negative #2 03/05/2016 03/05/2016 Advance Directives * Full Code (Latest Code Status on File) Date Activated Date Inactivated Comments 04/16/2023 8:34 PM 04/19/2023 5:37 PM Question Answer Comments Code Status Discussion: Reviewed Preferences * Full Code Date Activated Date Inactivated Comments 08/23/2021 11:51 AM 08/28/2021 6:05 PM Question Answer Comments Code Status Discussion: Reviewed Preferences * Full Code Date Activated Date Inactivated Comments 05/19/2018 11:43 AM 05/19/2018 4:38 PM Question Answer Comments Code Status Discussion: Discussed * Full Code Date Activated Date Inactivated Comments 01/19/2017 10:09 PM 01/22/2017 2:21 PM Question Answer Comments Code Status Discussion: Discussed * Full Code Date Activated Date Inactivated Comments 03/01/2016 4:14 PM 03/03/2016 11:33 AM Care Teams Drying Oven Tender Relationship Specialty Start Date End Date Ru Severino MD [address] [place] [id number] PCP - General Family Practice 07/27/21
--- OUTSIDE RECORDS SUMMARY | 2024-03-01 13:46 | XMS_ITS | Encounter Summary ---
Author Organization [facility] Address [address] [place] [address] Care Team Providers Care Lens Assorter Name Role Phone Ru Severino MD Primary Care Provider [phone] Encounter Details Date Type Department Care Team (Late st Contact Info) Description 01/13/2024 Office Communication [facility] [address] [place] [address] Светлана Castillo [address] [place] [address] Social History Tobacco Use Types Packs/Day Years Used Date Smoking Tobacco: Never Smokeless Tobacco: Never Alcohol Use Standard Drinks/Week Comments Yes 10 (1 standard drink = 0.6 oz pu re alcohol) Sex and Gender Information Value Date Recorded Sex Assigned at Not on file Gender Identity Not on file Sexual Orientation Not on file documented as of this encounter Miscellaneous Notes * Telephone Encounter - Светлана Castillo - 01/13/2024 9:13 AM CDT LVM for pt to let him know that Bailey Glover approved his request for a telemedicine appt on 03/10, and I sent him the link documented in this encounter Plan of Treatment Upcoming Encounters Date Type Department Care Team (Late st Contact Info) Description 03/10/2024 9:00 AM EDT Clinical Support [facility] [address] [place] [address] Bailey Glover, RD [address] [place] [phone] 03/11/2024 10:30 AM EDT Office Visit [facility] [address] [place] [address] Celi Nunez, HUMAN SERVICES PROGRAM SPECIALIST-DIRECTOR MARKETING [address] [facility] [address] [place] [phone] documented as of this encounter Visit Diagnoses Not on filedocumented in this encounter Care Teams Lens Assorter Relationship Specialty Start Date End Date Ru Severino MD [address] [place] [address] PCP - General Family Medicine 04/22/23 documented as of this encounter
--- OUTSIDE RECORDS SUMMARY | 2024-03-01 13:46 | XMS_ITS | Referral Summary ---
Author Organization [facility] Address [address] [place] [address] Care Team Providers Care Senior Asp Net Developer Name Role Phone Unavailable Primary Care Provider Unavailabl e Source Comments Patient records contain information from all sites at [facility]. For routine questions regarding patient records, call [phone] during business hours, M-F 8:00 AM - 5:00 PM Central Time. Record requests for emergency care only can be directed to [phone] at any time.[facility] Allergies No known active allergies Medications Medication Sig Dispensed Refills Start Date End Date Status gabapentin (NEURONTIN) 800 mg tablet Take 800 mg by mouth every 12 (twelve) hours. 06/06/2022 Active aspirin-caffeine 500-32.5 mg tablet Take 2 tablets by mouth every 6 (six) hours as needed. Active albuterol 90 mcg/actuation inhaler Inhale 2 puffs 4 (four) times a day as needed. 07/11/2017 Active carvediloL (COREG) 25 mg tablet Take 50 mg by mouth 2 (two) times a day with meals. 06/18/2022 Active chlorthalidone (HYGROTON) 25 mg tablet Take 25 mg by mouth daily. 07/27/2022 Active hydrALAZINE (APRESOLINE) 25 mg tablet Take 25 mg by mouth 3 (three) times a day. 07/12/2022 Active insulin aspart U-100 (NovoLOG FlexPen) 100 unit/mL (3 mL) injection Inject under the skin. 02/06/2018 Active Basaglar KwikPen U-100 Insulin 100 unit/mL (3 mL) injection Inject 60 Units under the skin every morning. 07/27/2022 Active lisinopriL (PRINIVIL,ZESTRIL ) 10 mg tablet Take 10 mg by mouth daily. 06/06/2022 Active metFORMIN XR (GLUCOPHAGE-XR) 500 mg 24 hr tablet Take 1,000 mg by mouth 2 (two) times a day. 08/07/2022 Active metoclopramide (REGLAN) 10 mg tablet Take 10 mg by mouth 2 (two) times a day. 06/12/2021 Active tamsulosin (FLOMAX) 0.4 mg 24 hr capsule Take 0.4 mg by mouth daily. 07/21/2022 Active VITAMIN B COMPLEX ORAL Take 1 tablet by mouth daily. 05/11/2010 Active blood sugar diagnostic strips Dispense test strips covered by the patient insurance. Test 4 times per day. 07/14/2013 Active UNABLE TO FIND [employer] diabetic shoes(3) sets inserts Jp Efraín. Multidensity triple layered diabetic accommodative insoles and offload to left foot 02/13/2017 Active tolterodine (DETROL LA) 2 mg 24 hr capsule TAKE 1 CAPSULE(2 MG) BY MOUTH DAILY 90 capsule 3 10/28/2023 Active Active Problems Problem Noted Date Diagnosed Date Osteomyelitis 08/28/2021 Diabetes Mellitus Type 2 With Other Skin Complic ation 08/23/2021 Ectasia Thoracic Aortic 07/27/2021 Morbid Severe Obesity Due To Excess Calories 09/2021 Shortness Of Breath 07/27/2021 Peripheral Vascular Disease 06/15/2018 Kidney And Ureter Disorder 06/02/2018 Overview (08/27/2022): elevated urine micro Retinopathy 06/02/2018 Overview (08/27/2022): mild Generalized Edema 01/20/2017 Hypophosphatemia 01/20/2017 Sepsis Due To Methicillin Resistant Staphylococc us Aureus 01/20/2017 Cellulitis Of Left Lower Limb 01/19/2017 Diabetes Mellitus Type 2 06/10/2015 Apnea Sleep Obstructive 07/28/2014 Overview (08/27/2022): Has CPAP Microalbuminuria 09/12/2013 Umbilical Hernia Without Obstruction Or Gangrene 09/12/2013 Hyperlipidemia 03/27/2011 Diabetes Mellitus Type 2 With Diabetic Neuropath y 12/02/2008 Hypertension 12/02/2008 Methicillin Resist Staphylococcus Aureus Coloniz ation 04/23/2008 Overview (08/27/2022): Left Leg Immunizations Name Administration Dates Next Due Influenza TIV (IM) 06/01/2013,05/23/2012, 009 Influenza, Injectable, Mdck, Quadrivalent 04/03/2022,04/04/2021 Influenza, Seasonal, Injectable 06/01/20 13,05/23/2012,04/03/2012,2008 PPSV23 03/15/2011 RZV (SHINGRIX) 09/25/2021,06/20/2021 Td, (Adult) Unspecified 08/21/1997 Tdap 09/25/2021,06/30/2009 influenza vaccine QV(FLUBLOK ) (18 years or older) (PF) 04/15/2019 influenza vaccine quad (FLUZONE/FLUARIX) (6 months and older)(PF) 06/02/2018,06/06/2015 Social History Tobacco Use Types Packs/Day Years Used Date Smoking Tobacco: Never Smokeless Tobacco: Never Tobacco Cessation:Counseling Given: Not Answered Nutrition Answer Date Recorded Nutrition: EVOO Fat Source Unknown 08/06 Nutrition: Servings of Fruits/Vegetables per Day Not on file 08/06/2022 Dental Answer Date Recorded Dental: Regular Dentist Unknown 08/06/19 23 Sex and Gender Information Value Date Recorded Sex Assigned at Not on file Gender Identity Not on file Sexual Orientation Not on file Plan of Treatment Not on file
--- OUTSIDE RECORDS SUMMARY | 2024-03-01 13:46 | XMS_ITS | Clinical Summary ---
Author Organization [facility] Address [address] [place] [address] Phone Care Team Providers Care Radiagraph Operator Name Role Phone Ru Severino MD Primary Care Provider [phone] Allergies No known active allergies Medications Medication Sig Dispensed Refills Start Date End Date Status albuterol HFA (PROVENTIL HFA;VENTOLIN HFA) 108 (90 Base) MCG/ACT inhaler Inhale 2 puffs if needed 07/11/2017 Active Aspirin-Caffeine 500-32.5 MG tablet Take 2 tablets by mouth every 6 (six) hours if needed Active carvedilol (COREG) 25 MG tablet Take 50 mg by mouth in the morning and 50 mg in the evening. 06/18/2022 Active hydrALAZINE 25 MG tablet Take 50 mg by mouth in the morning and 50 mg in the evening. Active insulin glargine (Basaglar KwikPen) 100 UNIT/ML injection Inject 60 Units under the skin every morning 07/27/2022 Active metFORMIN XR (GLUCOPHAGE-XR) 500 MG 24 hr tablet Take 1,000 mg by mouth in the morning and 1,000 mg in the evening. 08/07/2022 Active metoclopramide (REGLAN) 10 MG tablet Take 10 mg by mouth in the morning and 10 mg in the evening. 06/12/2021 Active tamsulosin (FLOMAX) 0.4 MG 24 hr capsule Take 1 capsule by mouth 1 (one) time each day 06/15/2019 Active tolterodine LA (DETROL LA) 2 MG 24 hr capsule Take 2 mg by mouth in the morning. 10/21/2022 Active VITAMIN B COMPLEX-C PO Take by mouth Active gabapentin (Neurontin) 400 MG capsule Take 1 capsule (400 mg total) by mouth in the morning and 1 capsule (400 mg total) in the evening. 05/13/2023 Active apixaban (Eliquis) 5 MG tablet Take 1 tablet (5 mg total) by mouth in the morning and 1 tablet (5 mg total) in the evening. 60 tablet 05/14/2023 Active bumetanide (Bumex) 1 MG tablet Take 3 tablets (3 mg total) by mouth 1 (one) time each day 270 tablet 3 05/29/2023 05/28/2024 Active Empagliflozin 10 MG tablet Take 10 mg by mouth 1 (one) time each day in the morning 90 tablet 11 07/28/2023 Active Insulin Aspart FlexPen 100 UNIT/ML solution pen-injector Inject 10 Units under the skin in the morning and 10 Units at noon and 10 Units in the evening. 08/05/2023 Active furosemide (Lasix) 40 MG tablet Take 1 tablet (40 mg total) by mouth in the morning and 1 tablet (40 mg total) in the evening. 60 tablet 11 05/13/2023 05/22/2023 Discontinued Active Problems Problem Noted Date Diagnosed Date Stage 3b chronic kidney disease 07/28/2023 Hypertensive chronic kidney disease with stage 1 through stage 4 chronic kidney disease, or unspecified chronic kidney disease 07/28/2023 Morbid obesity 07/28/2023 Family history of cancer of colon 04/25/2023 04/25/2023 History of pulmonary embolis m on long-term anticoagulation therapy 04/16/2023 04/25/2023 Osteomyelitis 08/28/2021 04/25/2023 Infection of foot associated with diabetes 08/2304/25/2023 Shortness of breath 07/27/2021 04/25/2023 Abnormal renal function 06/02/2018 04/25/20 Overview: elevated urine micro Disorder of kidney and/or ureter 06/02/2018 04/25/2023 Overview: elevated urine micro Retinal disorder 06/02/2018 04/25/2023 Overview: mild mild Generalized edema 01/20/2017 04/25/2023 Sepsis due to methicillin resistant Staphylococc us aureus 01/20/2017 04/25/2023 Personal history of Methicil willard resistant Staphylococcus aureus infection 03/01/2016 04/25/2023 Type 2 diabetes mellitus wit h diabetic chronic kidney disease 06/10/2015 04/25/2023 Obstructive sleep apnea syndrome 07/28/2014 04/25/2023 Overview: Has CPAP Has CPAP Microalbuminuria 09/12/2013 04/25/2023 Hyperlipidemia 03/27/2011 04/25/2023 Neuropathy due to diabetes mellitus 12/02/2008 04/25/2023 Resolved Problems Problem Noted Date Diagnosed Date Resolved Date Hypophosphatemia 01/20/2017 04/25/2023 09/26/2023 Hypertensive disorder 12/02/2008 04/25/20232023 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 04/23/2008 09/26/2023 Overview: Left Leg Encounters Date Type Department Care Team Description 02/25/2024 Telephone [facility] [address] [place] [phone] Brian Vail 01/13/2024 Office Communication [facility] [address] [place] [phone] Светлана Castillo 01/08/2024 Office Communication [facility] [address] [place] [phone] Светлана Castillo 12/26/2023 Orders Only [facility] [address] [place] [phone] Tommy Cruz MD Stage 3b chronic kidney disease (HCC) from Last 3 Months Family History Medical History Relation Comments Diabetes Brother Heart attack Father No Known Problems Sister Relation Status Comments Brother Alive Father Mother Sister Alive Social History Tobacco Use Types Packs/Day Years Used Date Smoking Tobacco: Never Smokeless Tobacco: Never Alcohol Use Standard Drinks/Week Comments Yes 10 (1 standard drink = 0.6 oz pu re alcohol) Sex and Gender Information Value Date Recorded Sex Assigned at Not on file Gender Identity Not on file Sexual Orientation Not on file Last Filed Vital Signs Vital Sign Reading Time Taken Comments Blood Pressure 136/68 09/26/2023 10:55 AM CDT Pulse 68 09/26/2023 10:55 AM CDT Temperature - - Respiratory Rate - - Oxygen Saturation - - Inhaled Oxygen Concentration - - Weight 137 kg (303 lb) 09/26/2023 10:55 AM CDT Height 182.9 cm (6') 09/26/2023 10:55 AM CDT Body Mass Index 41.09 09/26/2023 10:55 AM CDT Plan of Treatment Upcoming Encounters Date Type Department Care Team (Late st Contact Info) Description 03/10/2024 9:00 AM EDT Clinical Support [facility] [address] [place] [phone] Bailey Glover, RD [address] [facility] [address] [place] [phone] 03/11/2024 10:30 AM EDT Office Visit [facility] [address] [place] [address] Celi Nunez, INSTRUMENT LENS GRINDER-OFFENDER EMPLOYMENT SPECIALIST [address] [facility] [address] [place] [phone] Health Maintenance Due Date Last Done Comments Colorectal Cancer Screening: Annual FOBT 2009 Colorectal Cancer Screening: Colonoscopy 2009 Colorectal Cancer Screening: Sigmoidoscopy 2009 Pneumococcal Vaccine: Pediatrics (0 to 5 Years) and At-Risk Patients (6 to 64 Years) (2 of 2 - PCV) 03/15/2012 03/15/2011 Diabetes: Hemoglobin A1C 04/22/2023 08/25/2021 Diabetes: Ophthalmology Exam 04/22/2023 Diabetes: Pedal Pulse Checked 04/22/2023 Diabetes: Sensory Foot Exam 04/22/2023 Diabetes: Visual Foot Exam 04/22/2023 Influenza Vaccine (#1) 2024 3, 04/03/2022, 04/04/2021, Additional history exists Hepatitis B Vaccine Aged Out No longe r eligible based on patient's age to complete this topic Care Teams Radiagraph Operator Relationship Specialty Start Date End Date Ru Severino MD [address] [place] [address] PCP - General Family Medicine 04/22/23
--- OUTSIDE RECORDS SUMMARY | 2024-03-01 13:46 | XMS_ITS | Clinical Summary ---
Author Organization [facility] Address [address] [place] [address] Care Team Providers Care Wedding Transportation Driver Name Role Phone Unavailable Primary Care Provider Unavailabl e Source Comments Patient records contain information from all sites at [facility]. For routine questions regarding patient records, call [phone] during business hours, M-F 8:00 AM - 5:00 PM Central Time. Record requests for emergency care only can be directed to [phone] at any time.[facility] Allergies No known active allergies Medications [...] quad (FLUZONE/FLUARIX) (6 months and older)(PF) 06/02/2018,06/06/2015 Family History Medical History Relation Name Comments Heart attack Father Emphysema Mother Smoker Mother Relation Name Status Comments Father Mother Social History Tobacco Use Types Packs/Day Years Used Date Smoking Tobacco: Never Smokeless Tobacco: Never Tobacco Cessation:Counseling Given: Not Answered Nutrition Answer Date Recorded Nutrition: EVOO Fat Source Unknown 08/06 Nutrition: Servings of Fruits/Vegetables per Day Not on file 08/06/2022 Dental Answer Date Recorded Dental: Regular Dentist Unknown 08/06/19 Sex and Gender Information Value Date Recorded Sex Assigned at Not on file Gender Identity Not on file Sexual Orientation Not on file Plan of Treatment Health Maintenance Due Date Last Done Comments CT Colonography 1960 Cologuard 1960 Diabetic Office Visit with F oot Exam 1960 Dilated Eye Exam 1960 FIT 1960 HIV Screening 1960 Hepatitis C Screening 1960 Office Visit for Blood Press ure Check / Re-check 1960 Urine Albumin 1960 Pneumococcal vaccine (0-64 y ears) (2 of 2 - PCV) 03/15/2012 03/15/2011 Lipid (Cholesterol) Screening 06/02/2019 06/02/2018, 12/10/2017 Hemoglobin A1C 02/25/2022 08/25/2021, 05/23, 12/10/2017 Depression Screening (Annual PHQ-2) 06/23/2023 COVID-19 Vaccine (4 - 2022-2 4 season) 2024 10/01/2021, 10/12/2020, 09/14/2020 Influenza Vaccine (#1) 2024 , 04/03/2022, 04/04/2021, Additional history exists Creatinine Level (Kidney Fun ction Test) 04/19/2024 04/19/2023, 04/17/2023, 04/16/2023, Additional history exists Potassium Level 04/19/2024 04/19/2023, 03/24, 04/16/2023, Additional history exists Sodium Level 04/19/2024 04/19/2023, 03/24, 04/16/2023, Additional history exists Colonoscopy 05/19/2028 05/19/2018 Colorectal Cancer Screening 05/19/2028 DTaP,Tdap,and Td Vaccines (3 - Td or Tdap) 09/26/2031 09/25/2021, 06/30/2009, 08/21/1997 Zoster Vaccines Completed 09/25/2021, 06/20/2021
--- OUTSIDE RECORDS SUMMARY | 2024-03-01 13:46 | XMS_ITS | Encounter Summary ---
Author Organization [facility] Address [address] [place] [address] Care Team Providers Care Wet Finisher Wool Name Role Phone Ru Severino MD Primary Care Provider [phone] Encounter Details Date Type Department Care Team (Late st Contact Info) Description 01/08/2024 Office Communication [facility] [address] [place] [address] Светлана Castillo [address] [place] [address] Social History Tobacco Use Types [...] * Telephone Encounter - Светлана Castillo - 01/08/2024 9:30 AM CDT Pt asked if their hull sorter follow up in February could be a telehealth appt. Please advise documented in this encounter Plan of Treatment Upcoming Encounters Date Type Department Care Team (Late st Contact Info) Description 03/10/2024 9:00 AM EDT Clinical Support [facility] [address] [place] [address] Bailey Glover, DEON [address] [place] [phone] 03/11/2024 10:30 AM EDT Office Visit [facility] [address] [place] [phone] Celi Nunez, HEEL BURNISHER-ACCOUNTING OFFICE MANAGER [address] [facility] [address] [place] [phone] documented as of this encounter Visit Diagnoses Not on filedocumented in this encounter Care Teams Wet Finisher Wool Relationship Specialty Start Date End Date Ru Severino MD [address] [place] [address] PCP - General Family Medicine 04/22/23 documented as of this encounter
--- OUTSIDE RECORDS SUMMARY | 2024-03-01 13:46 | XMS_ITS | Encounter Summary ---
Author Organization [facility] Address [address] [place] [address] Care Team Providers Care Accounting Recruiter Name Role Phone uR Severino MD Primary Care Provider [phone] Encounter Details Date Type Department Care Team (Late st Contact Info) Description 02/25/2024 Telephone [facility] [address] [place] [address] Brian Vail [address] [place] [address] Social History Tobacco Use Types Packs/Day Years [...] encounter Miscellaneous Notes * Telephone Encounter - Brian Vail - 02/25/2024 3:22 PM CDT Spoke to patient regarding previsit labs to be completed prior to their office visit. Orders Faxed to [facility] documented in this encounter Plan of Treatment Upcoming Encounters Date Type Department Care Team (Late st Contact Info) Description 03/10/2024 9:00 AM EDT Clinical Support [facility] [place] [address] [place] [phone] Bailey Glover, RD [address] [place] [phone] 03/11/2024 10:30 AM EDT Office Visit [facility] [address] [place] [address] Celi Nunez, PENCIL INSPECTOR-STAPLE SHEAR OPERATOR [address] [facility] [address] [place] [address] documented as of this encounter Visit Diagnoses Not on filedocumented in this encounter Care Teams Accounting Recruiter Relationship Specialty Start Date End Date Ru Severino MD [address] [place] [address] PCP - General Family Medicine 04/22/23 documented as of this encounter
--- OUTSIDE RECORDS SUMMARY | 2024-03-01 13:46 | XMS_ITS | Encounter Summary ---
Author Organization [facility] Address [address] [place] [address] Care Team Providers Care Duralumin Mechanic Name Role Phone Ru Severino MD Primary Care Provider [phone] Encounter Details Date Type Department Care Team (Late st Contact Info) Description 12/26/2023 Orders Only [facility] [address] [place] [address] Tommy Cruz MD [address] [place] [phone] Stage 3b chronic kidney disease (HCC) Social History Tobacco Use Types Packs/Day Years Used Date Smoking Tobacco: Never Smokeless Tobacco: Never Alcohol Use Standard Drinks/Week Comments Yes 10 (1 standard drink = 0.6 oz pu re alcohol) Sex and Gender Information Value Date Recorded Sex Assigned at Not on file Gender Identity Not on file Sexual Orientation Not on file documented as of this encounter Plan of Treatment Upcoming Encounters Date Type Department Care Team (Late st Contact Info) Description 03/10/2024 9:00 AM EDT Clinical Support [facility] [address] [place] [address] [place] [address] 03/11/2024 10:30 AM EDT Office Visit [facility] [address] [place] [address] Celi Nunez, GERICARE AIDE TEACHER-REHEAT FURNACE OPERATOR [address] [facility] [address] [place] [phone] documented as of this encounter Visit Diagnoses Diagnosis Stage 3b chronic kidney disease (HCC) documented in this encounter Care Teams Duralumin Mechanic Relationship Specialty Start Date End Date Ru Severino MD [address] [place] [address] PCP - General Family Medicine 04/22/23 documented as of this encounter
[2024-03-01 15:37] LABS: Chloride* 106 mmol/L (96-114)
[2024-03-01 15:38] LABS: Albumin* 3.5 g/dL (3.3-5.0); Potassium* 4.6 mmol/L (3.6-5.1); Sodium* 138 mmol/L (135-149)
[2024-03-01 15:41] LABS: Anion Gap 6 mEq/L (7-15); Blood Urea Nitrogen* 35 mg/dL (7-30); Calcium* 8.9 mg/dL (8.4-10.6); Carbon Dioxide* 26 mmol/L (20-32); Creatinine* 1.6 mg/dL (0.5-1.5); Estimated Glomerular Filt Rate 48 ml/min; Glucose* 123 mg/dL (60-115); Phosphorus* 4.5 mg/dL (2.5-4.5)
[2024-03-01 16:57] LABS: Creatinine Urine 62.4 mg/dL
[2024-03-01 18:16] LABS: Microalbumin Urine 138 mg/dL
[2024-03-01 18:17] LABS: Microalbumin Creatinine Ratio 2210 mg/g (0-30)
== END 2024-03-01 13:44 | disposition home or self-care (01) ==
LOC: NPINS 13:43
PROVIDERS: PCP Family Medicine; Visit Provider Internal Medicine Nephrology
DX: N18.32 Chronic kidney disease, stage 3b (principal)
CPT/HCPCS: 80069; 82043; 82570

== ENCOUNTER 2024-04-06 09:55 | Inpatient (IN) | payer BC, SELFPAY ==
[2024-04-06] VITALS (22 sets, daily range): BP systolic 116–189; BP diastolic 59–90; PULSE 79–108; RESP 20; TEMP 35.8–36.7; O2SAT 92–95; BMI 41.8; BMI 41.4
--- OUTSIDE RECORDS SUMMARY | 2024-04-06 09:58 | XMS_ITS | Encounter Summary ---
Author Organization [facility] Address [address] [place] [address] Care Team Providers Care Vice President Name Role Phone Ru Severino MD Primary Care Provider Encounter Details Date Type Department Care Team (Late st Contact Info) Description 01/13/2024 Office Communication [facility] [place] [address] [place] [address] Светлана Castillo [address] [place] [address] Social History Tobacco Use Types [...] pt to let him know that Bailey Adalberto approved his request for a telemedicine appt on 03/10, and I sent him the link documented in this encounter Plan of Treatment Not on file documented as of this encounter Visit Diagnoses Not on filedocumented in this encounter Care Teams Vice President Relationship Specialty Start Date End Date Ru Severino MD [address] [place] [address] PCP - General Family Medicine 04/22/23 documented as of this encounter
--- OUTSIDE RECORDS SUMMARY | 2024-04-06 09:58 | XMS_ITS | Encounter Summary ---
Author Organization [facility] [place] Address [address] [facility] [address] [place] [address] Care Team Providers Care Sheet Rock Taper Helper Name Role Phone Ru Severino MD Primary Care Provider [phone] Reason for Visit * Reason Comments Follow-up Encounter Details Date Type Department Care Team (Latest Contact Info) Description 03/11/2024 10:30 AM EDT Office Visit [facility] [address] [place] [address] Celi Nunez, PHOTOGRAPHER NEWS-CARPENTER SUPERVISOR [employer] [address] [place] [address] Stage 3a chronic kidney disease (HCC) (Primary Dx); Essential (primary) hypertension; Type 2 diabetes mellitus with diabetic chronic kidney disease (HCC); Morbid obesity (HCC); Hypertensive chronic kidney disease with stage 1 through stage 4 chronic kidney disease, or unspecified chronic kidney disease; Generalized edema; History of pulmonary embolism on long-term anticoagulation therapy; Proteinuria, not otherwise specified Social History Tobacco Use Types Packs/Day Years Used Date Smoking Tobacco: Never Smokeless Tobacco: Never Tobacco Cessation:Counseling Given: Not Answered Alcohol Use Standard Drinks/Week Comments Yes 10 (1 standard drink = 0.6 oz pu re alcohol) Sex and Gender Information Value Date Recorded Sex Assigned at Not on file Gender Identity Not on file Sexual Orientation Not on file documented as of this encounter Last Filed Vital Signs Vital Sign Reading Time Taken Comments Blood Pressure 158/80 03/11/2024 10:28 AM CDT Pulse 65 03/11/2024 10:28 AM CDT Temperature - - Respiratory Rate - - Oxygen Saturation 94% 03/11/2024 10:28 AM CDT Inhaled Oxygen Concentration - - Weight 140 kg (308 lb) 03/11/2024 10:28 AM CDT Height 182.9 cm (6') 03/11/2024 10:28 AM CDT Body Mass Index 41.77 03/11/2024 10:28 AM CDT documented in this encounter Patient Instructions * Patient Instructions* Celi Nunez APRN-CNP - 03/11/2024 10:30 AM CDT -Return to clinic in 4 months for follow-up with Dr. Cruz -Increase Hydralazine to 75 mg (3 tabs) twice daily. -Please update [facility] in the next 2-3 weeks of home blood pressure readings -BP goal should be around 130/80 or less -Continue low salt/sodium diet We will contact you to schedule your 4 month follow up when the schedule becomes available. Labs should be completed 1-2 weeks prior. They will be faxed to [facility] and [facility]ics in [place]. Celi Nunez CNP/DWIGHT Torres documented in this encounter Progress Notes * Celi Nunez APRN-CNP - 03/11/2024 10:30 AM CDT Images from the original note were not included. Patient: Magen Luu Date of : 1960 Chart: [id number] PCP: Ru Severino MD Date of Service: 03/11/2024 Chief Complaint: CKD Stage 3b Subjective: Magen is here in clinic today for CKD follow-up. He has been feeling well since last visit. Continues on Jardiance and has been tolerating well. Hisedema is improved. His weight has remained the same since September. He met with Renal Dietitian 09/23/2023. Has been working on diet changes. BP has been above goal with home readings. Ranging from 150/80-90 or higher. He denies fever, chest pain, dyspnea, abdominal pain, flank pain, nausea, hematuria, and edema. SH: He lives in [place] with his The following portions of the patient's chart were reviewed in this encounter and updated as appropriate: Active Problems Patient Active Problem List Diagnosis Abnormal renal function History of pulmonary embolism on long-term anticoagulation therapy Disorder of kidney and/or ureter Family history of cancer of colon Generalized edema Hyperlipidemia Infection of foot associated with diabetes (HCC) Microalbuminuria Obstructive sleep apnea syndrome Osteomyelitis (HCC) Personal history of Methicillin resistant Staphylococcus aureus infection Retinal disorder Sepsis due to methicillin resistant Staphylococcus aureus (HCC) Shortness of breath 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 Provider LT albuterol HFA (PROVENTIL HFA;VENTOLIN HFA) 108 (90 Base) MCG/ACT inhaler Moise Barnes MD Inhale 2 puffs if needed apixaban (Eliquis) 5 MG tablet Leon Appiah NP Take 1 tablet (5 mg total) by mouth in the morning and 1 tablet (5 mg total) in the evening. Aspirin-Caffeine 500-32.5 MG tablet Moise Barnes MD Take 2 tablets by mouth every 6 (six) hours if needed bumetanide (Bumex) 1 MG tablet Leon Appiah NP Take 3 tablets (3 mg total) by mouth 1 (one) time each day carvedilol (COREG) 25 MG tablet Moise Barnes MD Take 50 mg by mouth in the morning and 50 mg in the evening. Empagliflozin 10 MG tablet Tommy Cruz MD Take 10 mg by mouth 1 (one) time each day in the morning gabapentin (Neurontin) 400 MG capsule Leon Appiah NP Take 1 capsule (400 mg total) by mouth in the morning and 1 capsule (400 mg total) in the evening. hydrALAZINE 25 MG tablet Celi Nunez, PHOTOGRAPHER NEWS-ALESIA Take 3 tablets (75 mg total) by mouth in the morning and 3 tablets (75 mg total) in the evening. Insulin Aspart FlexPen 100 UNIT/ML solution pen-injector Moise Barnes MD Inject 10 Units under the skin in the morning and 10 Units at noon and 10 Units in the evening. insulin glargine (Basaglar KwikPen) 100 UNIT/ML injection Moise Barnes MD Inject 60 Units under the skin every morning metFORMIN XR (GLUCOPHAGE-XR) 500 MG 24 hr tablet Moise Barnes MD Take 1,000 mg by mouth in the morning and 1,000 mg in the evening. metoclopramide (REGLAN) 10 MG tablet Moise Barnes MD Take 10 mg by mouth in the morning and 10 mg in the evening. tamsulosin (FLOMAX) 0.4 MG 24 hr capsule Moise Barnes MD Take 1 capsule by mouth 1 (one) time each day tolterodine LA (DETROL LA) 2 MG 24 hr capsule Moise Barnes MD Take 2 mg by mouth in the morning. VITAMIN B COMPLEX-C PO Moise Barnes MD Take by mouth No Known Allergies Physical Exam BP 158/80 (BP Location: Right upper arm, Patient Position: Sitting, BP Cuff Size: Adult) Pulse 65 Ht 6' (1.829 m) Wt (!) 308 lb (140 kg) SpO2 94% BMI 41.77 kg/m?? Gen: calm and comfortable Eyes: sclera non icteric ENMT: neck movement unrestricted Lungs: Normal resp effort. Clear to auscultation Heart: No leg edema. Regular rate and rhythm Neuro: Moving all four extremities Psych: Alert, oriented x3. Normal affect MS: No obvious joint or digit deformities visible, no cyanosis Skin: No lesions, facial rash or erythema visible Chemistry and Bone Mineral Lab Units 03/01/24 1105 09/17/23 0000 07/21/23 0000 05/13/23 1101 05/09/23 0000 05/06/23 0000 SODIUM mEq/L 138 141 140 142 -- 135 POTASSIUM mEq/L 4.6 4.8 4.9 5.4* -- 4.8 CHLORIDE 106 107 106 110 -- 110 CO2 mmol/L 26 27 28 25 -- 25 ANION GAP MMOL/L -- -- 6* -- -- -- CALCIUM mg/dL 8.9 9.4 8.5 8.9 9.2 8.9 PHOSPHORUS mg/dL 4.5 5.9* 3.7 3.1 -- 3.9 PTH pg/mL -- -- -- -- 47 -- GLUCOSE mg/dL 123* 117* 200* 62* -- 88 ALBUMIN, S/P g/dL -- -- -- 3.7 -- -- ALBUMIN g/dL 3.5 3.7 3.5 3.3* -- -- BUN mg/dL 35* 46* 47* 37* -- 41* CREATININE mg/dL 1.6* 1.9* 1.8* 2.40* -- 1.9* EGFR 48 39 42* 30* -- 39 CBC and Iron Studies Lab Units 05/06/23 0000 WBC AUTO K/uL 4.31* HEMATOCRIT % 38.1 HEMOGLOBIN g/dL 12.3* MCV 91 PLATELETS AUTO 189 Urine Lab Units 05/13/23 1101 05/06/23 0000 COLOR U DARK YELLOW yellow CLARITY U -- Turbid* KETONES U MG/DL NEGATIVE -- KETONES U -- negative UROBILINOGEN U -- 1.0 PROT/CREAT RATIO UR mg/g creat 5.189* 5,189* -- Imaging: Renal Ultrasound 04/19/2023: FINDINGS: Sonographic images reveal a symmetric appearance of the kidneys. There is no evidence of hydronephrosis, mass or calculus. The right kidney measures 13.6cm in length and the left kidney measures 13.9cm in length. The renal cortex appears of normal thickness. Normal color Doppler flow to both kidneys. The renal veins are patent. The urinary bladder appears normal. There is no evidence of bladder calculi or diverticula. IMPRESSION: Normal renal ultrasound. Assessment and Plan: CKD Stage 3a - stable Proteinuria, nephrotic range, persistent Type 2 DM with diabetic nephropathy - stable Hypertensive chronic kidney disease - BP not yet at goal Morbid obesity - improving, motivated to keep losing weight, target 250 lbs to start Work-up with bland UA beside proteinuria. Has nephrotic range proteinuria with urine Pr:Cr 5.2 g/g 04/2023. Normal renal ultrasound 03/2023. Has longstanding DM and HTN. CKD likely 2/2 diabetic nephropathy, hypertensive nephrosclerosis, and proteinuria likely exacerbated by morbid obesity which causes hyper- filtration. SPEP no monoclonal and FLC ratio nl for CKD 3b. -No further work-up necessary at this time -Avoid NSAID's -Will hold ACEI/ARB at this time given hyperkalemia which improved off of this. Pending proteinuriaand BP control and trend in potassium level, may consider low dose ACEI/ARB at future visit with close monitoring of potassium -Continue Jardiance, tolerating well -BP goal above goal in clinic today. He also reports SBP 150's at home. -He will contniue to work on lifestyle measures for now and trend BP. -Increase Hydralazine to 75 mg (3 tabs) twice daily. He would like to keep twice daily dosing for now. Discussed adding third dose of Hydralazine if needed. -He will update [facility] in the next 2-3 weeks of home blood pressure readings -BP goal should be around 130/80 or less -Continue low salt/sodium diet History of PE on chronic anticoagulation - stable On Eliquis and tolerating well. As long as tolerating, will remain on AC for life. Followed by PCP. Generalized edema On bumex 3mg daily. He uses compression socks as well. Edema also improved somewhat since starting Jardiance. -Continue current medications -Continue low sodiumd diet Return in about 4 months (around 07/11/2024) for Recheck.with Dr. Nancy Nunez APRN CNP [facility]: [phone] documented in this encounter Plan of Treatment Scheduled Orders Name Type Priority Associated Diagnoses Orde r Schedule Renal function panel Lab Routine Stage 3a chronic kidney disease (HCC) Expected: 07/11/2024 (Approximate), Expires: 04/09/2025 Hemoglobin Lab Routine Stage 3a chronic kidney disease (HCC) Expected: 07/11/2024 (Approximate), Expires: 04/09/2025 PTH, intact Lab Routine Stage 3a chronic kidney disease (HCC) Expected: 07/11/2024 (Approximate), Expires: 04/09/2025 Urinalysis with microscopic Lab Routine Stage 3a chronic kidney disease (HCC) Expected: 07/11/2024 (Approximate), Expires: 04/09/2025 Urine Albumin / Creatinine Ratio Lab Routine Stage 3a chronic kidney disease (HCC) Expected: 07/11/2024 (Approximate), Expires: 04/09/2025 Urine Albumin / Creatinine Ratio Lab Routine Stage 3a chronic kidney disease (HCC) Expected: 06/09/2024 (Approximate), Expires: 04/09/2025 documented as of this encounter Visit Diagnoses Diagnosis Stage 3a chronic kidney disease (HCC)- Primary Essential (primary) hypertension Type 2 diabetes mellitus with diabetic chronic kidney disease (HCC) Morbid obesity (HCC) Morbid obesity Hypertensive chronic kidney disease with stage 1 through stage 4 chronic kidney disease, or unspecified chronic kidney disease Generalized edema History of pulmonary embolism on long-term anticoagulation therapy Proteinuria, not otherwise specified documented in this encounter Care Teams Sheet Rock Taper Helper Relationship Specialty Start Date End Date Ru Severino MD [address] [place] [id number] PCP - General Family Medicine 04/22/23 documented as of this encounter
--- OUTSIDE RECORDS SUMMARY | 2024-04-06 09:58 | XMS_ITS | Encounter Summary ---
Author Organization [facility] Address [address] [place] [address] Care Team Providers Care Handtools Repairer Name Role Phone Ru Severino MD Primary Care Provider [phone] Encounter Details Date Type Department Care Team (Late st Contact Info) Description 12/26/2023 Orders Only [facility] [address] [place] [address] Tommy Cruz MD [address] [place] [address] Stage 3b chronic kidney disease (HCC) Social [...] as of this encounter Plan of Treatment Not on file documented as of this encounter Procedures Procedure Name Priority Date/Time Associated Diagnosis Comments URINE ALBUMIN / CREATININE RATIO Routine 03/01/2024 11:05 AM CDT Stage 3b chronic kidney disease (HCC) RENAL FUNCTION PANEL Routine 03/01/2024 11:05 AM CDT Stage 3b chronic kidney disease (HCC) documented in this encounter Results * (ABNORMAL) Urine Albumin / Creatinine Ratio (03/01/2024 11:05 AM CDT) Microalbumin Urine Random 138 mg/dL PRINT/EXTERNA L (NON-INTERFAC ED LABS) Creatinine, Urine Random 62.4 mg/dL PRINT/EXTERNA L (NON-INTERFAC ED LABS) Microalbumin/Crea t Ratio, Random 2,210(H) PRINT/NEWS TECHNICAL DIRECTOR A L (NON-INTERFAC ED LABS) Urine (Urine, Clean Catch) 03/01/2024 11:05 AM CDT Tommy Cruz MD LAB URINE ORDERABLES Performing Organization Address City/[facility]/ZIP Co de Phone Number PRINT/EXTERNAL (NON-INTERFACED LABS) * (ABNORMAL) Renal function panel (03/01/2024 11:05 AM CDT) Glucose 123(H) mg/dL PRINT/EXTE RNAL (NON-INTERFACE D LABS) BUN 35(H) mg/dL PRINT/EXTE RNAL (NON-INTERFACE D LABS) Creatinine 1.6(H) mg/dL PRINT/EXT ERNAL (NON-INTERFACE D LABS) Sodium 138 mEq/L PRINT/EXTE RNAL (NON-INTERFACE D LABS) Potassium 4.6 mEq/L PRINT/EXTE RNAL (NON-INTERFACE D LABS) Chloride 106 PRINT/EXTE RNAL (NON-INTERFACE D LABS) Carbon Dioxide 26 mmol/L PRINT /EXTERNAL (NON-INTERFACE D LABS) Calcium 8.9 mg/dL PRINT/EXTE RNAL (NON-INTERFACE D LABS) Phosphorus, Serum 4.5 mg/dL PRINT/EXTERNAL (NON-INTERFACE D LABS) Albumin (Blood) 3.5 g/dL PRIN T/EXTERNAL (NON-INTERFACE D LABS) eGFR 48 PRINT/EXTE RNAL (NON-INTERFACE D LABS) Blood (Blood, Venous) 03/01/2024 11:05 AM CDT Tommy Cruz MD LAB BLOOD ORDERABLES PRINT/EXTERNAL (NON-INTERFACED LABS) documented in this encounter Visit Diagnoses Diagnosis Stage 3b chronic kidney disease (HCC) documented in this encounter Care Teams Handtools Repairer Relationship Specialty Start Date End Date Ru Severino MD [address] [place] [address] PCP - General Family Medicine 04/22/23 documented as of this encounter
--- OUTSIDE RECORDS SUMMARY | 2024-04-06 09:58 | XMS_ITS | Encounter Summary ---
Author Organization [facility] Address [address] [place] [address] Care Team Providers Care Foundation Assistant Name Role Phone Ru Severino MD Primary Care Provider [phone] Encounter Details Date Type Department Care Team (Late st Contact Info) Description 01/08/2024 Office Communication [facility] [address] [place] [address] Светлана Castillo [address] [place] [address] Social History Tobacco Use Types [...] 9:30 AM CDT Pt asked if their machine adjuster leader case trim follow up in February could be a telehealth appt. Please advise documented in this encounter Plan of Treatment Not on file documented as of this encounter Visit Diagnoses Not on filedocumented in this encounter Care Teams Foundation Assistant Relationship Specialty Start Date End Date Ru Severino MD [address] [place] [address] PCP - General Family Medicine 04/22/23 documented as of this encounter
--- OUTSIDE RECORDS SUMMARY | 2024-04-06 09:58 | XMS_ITS | Encounter Summary ---
Author Organization [facility] Address [address] [place] [address] Care Team Providers Care Deli Associate Name Role Phone Ru Severino MD Primary Care Provider [phone] Encounter Details Date Type Department Care Team (Latest Contact Info) Description 03/10/2024 9:00 AM EDT Clinical Support [facility] [address] [place] [address] Bailey Glover, RD [address] [place] [address] Stage 3b chronic kidney disease (HCC) (Primary Dx) Social History Tobacco Use Types Packs/Day Years Used Date Smoking Tobacco: Never Smokeless Tobacco: Never Alcohol Use Standard Drinks/Week Comments Yes 10 (1 standard drink = 0.6 oz pu re alcohol) Sex and Gender Information Value Date Recorded Sex Assigned at Not on file Gender Identity Not on file Sexual Orientation Not on file documented as of this encounter Patient Instructions * Patient Instructions* Bailey Glover RD - 03/10/2024 9:00 AM CDT Don't be discouraged by your weight loss being at a plateau. This is a very common phase in your weight loss journey. Be patient during this plateau phase as you'll naturally get out of it by continuing to do what you're currently doing. Give your body some time. Now that you'll slowly adding back your physical activity since hurting your knee, this activity change will help you get over the plateau. documented in this encounter Progress Notes * Bailey Glover RD - 03/10/2024 9:00 AM CDT DIETITIAN NOTE Date: 03/10/2024 [facility] Patient Name: Magen Luu Date of MNT Referral Order: 07/28/23 Referring Provider: Dr. Tommy Cruz Visit Start Time: 9:00 am Visit End Time: 9:30 am Number of Minutes: 30 minutes Units: 2 units GFR: 48 (up from 39) Diagnoses: CKD Stage 3b ASSESSMENT Pt is a 63 y.o. year old male with: Patient Active Problem List Diagnosis Abnormal renal [...] unspecified chronic kidney disease Morbid obesity (HCC) Medications: Current Outpatient Medications: albuterol HFA (PROVENTIL HFA;VENTOLIN HFA) 108 (90 Base) MCG/ACT inhaler, Inhale 2 puffs if needed,Disp: , Rfl: apixaban (Eliquis) 5 MG tablet, Take 1 tablet (5 mg total) by mouth in the morning and 1 tablet (5 mg total) in the evening., Disp: 60 tablet, Rfl: Aspirin-Caffeine 500-32.5 MG tablet, Take 2 tablets by mouth every 6 (six) hours if needed, Disp: ,Rfl: bumetanide (Bumex) 1 MG tablet, Take 3 tablets (3 mg total) by mouth 1 (one) time each day, Disp: 270 tablet, Rfl: 3 carvedilol (COREG) 25 MG tablet, Take 50 mg by mouth in the morning and 50 mg in the evening., Disp: , Rfl: Empagliflozin 10 MG tablet, Take 10 mg by mouth 1 (one) time each day in the morning, Disp: 90 tablet, Rfl: 11 gabapentin (Neurontin) 400 MG capsule, Take 1 capsule (400 mg total) by mouth in the morning and 1 capsule (400 mg total) in the evening., Disp: , Rfl: hydrALAZINE 25 MG tablet, Take 50 mg by mouth in the morning and 50 mg in the evening., Disp: , Rfl: Insulin Aspart FlexPen 100 UNIT/ML solution pen-injector, Inject 10 Units under the skin in the morning and 10 Units at noon and 10 Units in the evening., Disp: , Rfl: insulin glargine (Basaglar KwikPen) 100 UNIT/ML injection, Inject 60 Units under the skin every morning, Disp: , Rfl: metFORMIN XR (GLUCOPHAGE-XR) 500 MG 24 hr tablet, Take 1,000 mg by mouth in the morning and 1,000 mg in the evening., Disp: , Rfl: metoclopramide (REGLAN) 10 MG tablet, Take 10 mg by mouth in the morning and 10 mg in the evening.,Disp: , Rfl: tamsulosin (FLOMAX) 0.4 MG 24 hr capsule, Take 1 capsule by mouth 1 (one) time each day, Disp: , Rfl: tolterodine LA (DETROL LA) 2 MG 24 hr capsule, Take 2 mg by mouth in the morning., Disp: , Rfl: VITAMIN B COMPLEX-C PO, Take by mouth, Disp: , Rfl: Allergies: No Known Allergies Lab Values: Bone Mineral Lab Units 03/01/24 1105 09/17/23 0000 07/21/23 0000 05/13/23 11005/09/23 0000 05/06/23 0000 CALCIUM mg/dL 8.9 9.4 8.5 8.9 9.2 8.9 PHOSPHORUS mg/dL 4.5 5.9* 3.7 3.1 -- 3.9 PTH pg/mL -- -- -- -- 47 -- Chemistry Lab Units 03/01/24 1105 09/17/23 0000 07/21/23 0000 05/13/23 1101 05/06/23 0000 CREATININE mg/dL 1.6* 1.9* 1.8* 2.40* 1.9* BUN mg/dL 35* 46* 47* 37* 41* POTASSIUM mEq/L 4.6 4.8 4.9 5.4* 4.8 SODIUM mEq/L 138 141 140 142 135 CO2 mmol/L 26 27 28 25 25 CHLORIDE 106 107 106 110 110 ALBUMIN, S/P g/dL -- -- -- 3.7 -- ALBUMIN g/dL 3.5 3.7 3.5 3.3* -- EGFR 48 39 42* 30* 39 GLUCOSE mg/dL 123* 117* 200* 62* 88 WBC AUTO K/uL -- -- -- -- 4.31* HEMATOCRIT % -- -- -- -- 38.1 HEMOGLOBIN g/dL -- -- -- -- 12.3* HEMOGLOBIN URINE -- -- -- NEGATIVE -- PLATELETS AUTO -- -- -- -- 189 Nutrition Focused Physical Findings BMI: Estimated body mass index is 41.09 kg/m?? as calculated from the following: Height as of 09/26/23: 6' (1.829 m). Weight as of 09/26/23: 303 lb (137 kg). Weight hx: Wt Readings from Last 3 Encounters: 09/26/23 (!) 303 lb (137 kg) 07/28/23 (!) 320 lb (145 kg) 05/13/23 (!) 321 lb (146 kg) Weight Changes: Per pt, his wt loss has now plateaued. Other Findings: Renal panel labs and A1C has improved since last visit. Pt did have a fall over thesummer that resulted in a sore knee. While sore knee has been healing, he hasn't been as physicallyactive. This change in physical activity has contributed to this wt loss plateau. Knee is starting to feel better and pt gradually increasing his activity. Nutrition Supplements, Herbals, Vitamins, Minerals: No changes. Food and Nutrition History Current Diet Followed: Now eating 2x/d instead of 1x/d. The amount of food he consumes hasn't changed, but now more spread out throughout the day. Appetite: Good Appetite Trend: Stable Breakfast: Doesn't eat. Lunch: Eating a peanut butter sandwich on cracked wheat bread with a piece of fruit (apple). Dinner: Meat (more often grilled), vegetables (eating more), and starch. Snacks: Will occasionally grab a piece of fruit if feeling hungry. Beverages: Remains adequately hydrated. Food Allergies/Intolerances: NKFA Alcohol Intake: No changes reported. Oral Status: No changes. GI issues: No changes. Food Insecurity present: No Exercise Habits: Decreased activity over the past 6-8 wks while knee heals from fall. Diabetes management Last A1C: Per pt, recent A1C recheck was 6.6 (down from 7.3). Goals: Goals from initial visit on 09/23/23: Aim to eat on a consistent schedule. This may look like eating something every 3-4 hours. The quantity may vary from a few bites, a small snack, to a full meal. Consistent eating allows enough opportunities to fuel your body with nutrition, helps stabilize blood sugar, and helps with bowel regularity. Rely on a clock to tell you when it's time to eat instead of your hunger cues. (Completed - ongoing) Continue to follow a low sodium diet. Aim to keep your sodium intake between 2574-2088 mg each day.Cutting down on packaged foods and fast-food has greatly helped to lower your sodium intake plus helping to lower your high phosphorus level. (Completed - ongoing) Phosphate additives are added to many processed foods. Limiting foods with phosphate additives is very important if you need to control phosphorus in your diet. There are many names for these additives, but they all contain the letters PHOS. Read ingredient labels on all packaged foods and beverages to limit or avoid phosphorus additives. Include fruits and vegetables that you enjoy into your daily diet. Ok to eat fresh, frozen, and canned options. (Completed - ongoing) Goals from today's visit on 03/10/24: Continue current plan listed above as kidney function and diabetes management have both improved over the past 5-6 months. Don't be discouraged by your weight loss being at a plateau. This is a very common phase in your weight loss journey. Be patient during this plateau phase as you'll naturally get out of it by continuing to do what you're currently doing. Give your body some time. Now that you'll slowly adding back your physical activity since hurting your knee, this activity change will help you get over the plateau. Adherence to / Barriers to MNT goals: Pt continues to be doing very well. Becoming a little discouraged by his weight loss plateau despite significant improvements in his kidney function and diabetesmanagement. RD reinforced focusing on his health improvements and not just weight changes. INTERVENTION RD encouraged continual nutrition plan as he's feeling well, kidney function has improved, and diabetes management has improved. RD addressed weight platuea as this is a point of discouragement in his health journey. Reinforced patience as his body will naturally be able to overcome this weight platuea based on his current diet efforts and gradually increasing his physical activity post knee injury. RD provided a lot of affirmations to continue to build his confidence and provide encouragement. This visit was conducted using video technology on 03/10/2024. Verbal consent for Telehealth visit was obtained by the Folding Machine Operator at the start of today's visit. Magen Luu was at home, Juany Muro MA and I participated in the Telehealth services located at [facility] [address] [address] . MONITORING / EVALUATION Will monitor nutrition related labs and kidney function. Follow up in 1 yr. Bailey Glover MS, RD, LD documented in this encounter Plan of Treatment Not on file documented as of this encounter Visit Diagnoses Diagnosis Stage 3b chronic kidney disease (HCC)- Primary documented in this encounter Care Teams Deli Associate Relationship Specialty Start Date End Date Ru Severino MD [address] [place] [address] PCP - General Family Medicine 04/22/23 documented as of this encounter
--- OUTSIDE RECORDS SUMMARY | 2024-04-06 09:58 | XMS_ITS | Clinical Summary ---
Author Organization [facility] [place] Address [address] [place] [address] Phone Care Team Providers Care Glass Products Inspector Name Role Phone Ru Severino MD Primary Care Provider [phone] Allergies No known active allergies Medications Medication [...] 50 mg in the evening. 06/18/2022 Active insulin glargine (Basaglar KwikPen) 100 UNIT/ML [...] time each day 270 tablet 3 05/29/2023 4 Active Empagliflozin 10 MG tablet Take 10 mg by mouth 1 (one) time each day in the morning 90 tablet 11 07/28/2023 Active Insulin Aspart FlexPen 100 UNIT/ML solution pen-injector Inject 10 Units under the skin in the morning and 10 Units at noon and 10 Units in the evening. 08/05/2023 Active hydrALAZINE 25 MG tabletIndications :Stage 3a chronic kidney disease (HCC),Essential (primary) hypertension Take 3 tablets (75 mg total) by mouth in the morning and 3 tablets (75 mg total) in the evening. 540 tablet 3 03/11/2024 Active hydrALAZINE 25 MG tablet Take 50 mg by mouth in the morning and 50 mg in the evening. 4 Discontinued(Reo rder (does not appear on AVS)) furosemide (Lasix) 40 MG tablet Take 1 tablet (40 mg total) by mouth in the morning and 1 tablet (40 mg total) in the evening. 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 after the 03/23/24 Regulatory Import Encounters Date Type Department Care Team Description 03/11/2024 10:30 AM EDT Office Visit [facility] [place] [address] [place] [address] Mayra Celi Jacey, GEODESIST-LABOR RELATIONS MANAGER Stage 3a chronic kidney disease (HCC) (Primary Dx); Essential (primary) hypertension; Type 2 diabetes mellitus with diabetic chronic kidney disease (HCC); Morbid obesity (HCC); Hypertensive chronic kidney disease with stage 1 through stage 4 chronic kidney disease, or unspecified chronic kidney disease; Generalized edema; History of pulmonary embolism on long-term anticoagulation therapy; Proteinuria, not otherwise specified 03/10/2024 9:00 AM EDT Clinical Support [facility] [place] [address] Stage 3b chronic kidney disease (HCC) (Primary Dx) 02/25/2024 Telephone [facility] [place] [address] [facility] [address] [place] [address] Brian Vail 01/13/2024 Office Communication [facility] [address] [address] Светлана Castillo 01/08/2024 Office Communication [facility] [address] [address] Светлана Castillo from Last 3 Months Immunizations Name Administration Dates Next Due Influenza, Quadrivalent, Preservative Free 04/22 Moderna SARS-COV-2 10/01/2021,10/12/2020, 021 Family History Medical History Relation Comments Diabetes [...] Mass Index 41.77 03/11/2024 10:28 AM CDT Plan of Treatment Health Maintenance Due Date Last Done Comments Pneumococcal Vaccine: Pediat rics (0 to 5 Years) and At-Risk Patients (6 to 64 Years) (1 of 2 - PCV) 1966 Colorectal Cancer Screening: Annual FOBT 2009 Colorectal Cancer Screening: Colonoscopy 2009 Colorectal Cancer Screening: Sigmoidoscopy 2009 Diabetes: Hemoglobin A1C 04/22/2023 08/25/2021 Diabetes: Ophthalmology Exam 04/22/2023 Diabetes: Pedal Pulse Checked 04/22/2023 Diabetes: Sensory Foot Exam 04/22/2023 Diabetes: Visual Foot Exam 04/22/2023 Influenza Vaccine (#1) 2024 04/22/2023 Hepatitis B Vaccine Aged Out No longe r eligible based on patient's age to complete this topic Procedures Procedure Name Priority Date/Time Associated Diagnosis Comments URINE ALBUMIN / CREATININE RATIO Routine 03/01/2024 11:05 AM CDT Stage 3b chronic kidney disease (HCC) RENAL FUNCTION PANEL Routine 03/01/2024 11:05 AM CDT Stage 3b chronic kidney disease (HCC) from Last 3 Months Results * (ABNORMAL) Urine Albumin / Creatinine Ratio (03/01/2024 11:05 AM CDT) Microalbumin Urine Random 138 mg/dL PRINT/EXTERNA L (NON-INTERFAC ED LABS) Creatinine, Urine Random 62.4 mg/dL PRINT/EXTERNA L (NON-INTERFAC ED LABS) Microalbumin/Crea t Ratio, Random 2,210(H) PRINT/PLASTICS FABRICATOR A L (NON-INTERFAC ED LABS) Urine (Urine, Clean Catch) 03/01/2024 11:05 AM CDT Tommy Cruz MD LAB URINE ORDERABLES PRINT/EXTERNAL (NON-INTERFACED LABS) * (ABNORMAL) Renal function [...] MD LAB BLOOD ORDERABLES PRINT/EXTERNAL (NON-INTERFACED LABS) from Last 3 Months Care Teams Glass Products Inspector Relationship Specialty Start Date End Date Ru Severino MD [address] [place] [address] PCP - General Family Medicine 04/22/23
--- OUTSIDE RECORDS SUMMARY | 2024-04-06 09:58 | XMS_ITS | Encounter Summary ---
Author Organization [facility] [place] [place] Address [address] [place] [address] Care Team Providers Care Studio Technician Name Role Phone Ru Severino MD Primary Care Provider [phone] Encounter Details Date Type Department Care Team (Late st Contact Info) Description 02/25/2024 Telephone [facility] [place] [address] [place] [address] Brian Vail [address] [place] [address] Social History Tobacco Use Types [...] to their office visit. Orders Faxed to [facility] documented in this encounter Plan of Treatment Not on file documented as of this encounter Visit Diagnoses Not on filedocumented in this encounter Care Teams Studio Technician Relationship Specialty Start Date End Date Ru Severino MD [address] [place] [address] PCP - General Family Medicine 04/22/23 documented as of this encounter
--- OUTSIDE RECORDS SUMMARY | 2024-04-06 09:59 | XMS_ITS ---
Author Organization [facility] Address [address] [place] [address] Care Team Providers Care Scientific Photographer Name Role Phone Unavailable Unavailable Unavailable Surgery Details Not on file Complications Check Surgery Details section. Procedure Estimated Blood Loss Check Surgery Details section. Procedure Findings Check Surgery Details section. Procedure Specimens Taken Check Surgery Details section.
--- OUTSIDE RECORDS SUMMARY | 2024-04-06 09:59 | XMS_ITS | Referral Summary ---
Author Organization [facility] Address [address] [place] [address] Care Team Providers Care School Athletic Director Name Role Phone Unavailable Primary Care Provider Unavailabl e Source Comments Patient records contain information from all sites at [facility]. For routine questions regarding patient records, call [phone] during business hours, M-F 8:00 AM - 5:00 PM Central Time. Record requests for emergency care only can be directed to [phone] at any time.[facility] Allergies No known active allergies Medications gabapentin (NEURONTIN) 800 mg tablet Take 800 mg by mouth every 12 (twelve) hours. 2 Active aspirin-caffei ne 500-32.5 mg tablet Take 2 tablets by mouth every 6 (six) hours as needed. Active albuterol 90 mcg/actuation inhaler Inhale 2 puffs 4 (four) times a day as needed. 8 Active carvediloL (COREG) 25 mg tablet Take 50 mg by mouth 2 (two) times a day with meals. 2 Active chlorthalidone (HYGROTON) 25 mg tablet Take 25 mg by mouth daily. 3 Active hydrALAZINE (APRESOLINE) 25 mg tablet Take 25 mg by mouth 3 (three) times a day. 3 Active insulin aspart U-100 (NovoLOG FlexPen) 100 unit/mL (3 mL) injection Inject under the skin. 8 Active Basaglar KwikPen U-100 Insulin 100 unit/mL (3 mL) injection Inject 60 Units under the skin every morning. 3 Active lisinopriL (PRINIVIL,ZEST RIL) 10 mg tablet Take 10 mg by mouth daily. 2 Active metFORMIN XR (GLUCOPHAGE-XR ) 500 mg 24 hr tablet Take 1,000 mg by mouth 2 (two) times a day. 3 Active metoclopramide (REGLAN) 10 mg tablet Take 10 mg by mouth 2 (two) times a day. 1 Active tamsulosin (FLOMAX) 0.4 mg 24 hr capsule Take 0.4 mg by mouth daily. 3 Active VITAMIN B COMPLEX ORAL Take 1 tablet by mouth daily. 0 Active blood sugar diagnostic strips Dispense test strips covered by the patient insurance. Test 4 times per day. 4 Active UNABLE TO FIND New Balance diabetic shoes(3) sets inserts Jp Efraín. Multidensity triple layered diabetic accommodative insoles and offload to left foot 7 Active tolterodine (DETROL LA) 2 mg 24 hr capsule TAKE 1 CAPSULE(2 MG) BY MOUTH DAILY 90 capsule 3 4 Active Active Problems Problem Noted Date Diagnosed [...] Recorded Sex Assigned at Not on file Legal Sex Male 9:27 PM POST CLOSER Gender Identity Not on file Sexual Orientation Not on file Plan of Treatment Not on file Insurance [facility]
--- OUTSIDE RECORDS SUMMARY | 2024-04-06 09:59 | XMS_ITS | Clinical Summary ---
Author Organization [facility] [place], [place] [address] Care Team Providers Care Employee Benefits Director Name Role Phone Ru Severino MD Primary [...] Morbid obesity 05/16/2008 07/07/2012 DIABETES 05/14/2002 05/19/2012 Encounters Date Type Department Care Team Description 03/01/2024 Orders Only [facility] Scanner 1 scan: (1-Ord) [facility], MULTIPLE RESULTS, 03/01/2024 03/01/2024 Orders Only [facility] Scanner 1 scan: (1-Ord) [facility], RESULTS, 03/01/2024 from Last 3 Months Immunizations Name Administration Dates Next Due Influenza, IIV3 (Age >=3 years) 06/01/2013,05/23,03/28/2009 Influenza, IIV4 06/02/2018,06/06/2015 Td (Age >=7 Years) 08/21/1997 Tdap 06/30/2009 Family History Medical History Relation Name Comments Cancer Brother 1 Diabetes Brother 1 age 20 Cancer-colon Brother 2 Uvaldo Heart Disease Father from [place] at age 48 Asthma Mother at age [...] Comments Blood Pressure 138/76 07/08/2023 10:48 AM GASKET SUPERVISOR Pulse 68 07/08/2023 10:48 AM GASKET SUPERVISOR Temperature 36.6 ??C (97.8 ??F) 04/19/2023 11:37 AM C DT Respiratory Rate 16 04/19/2023 11:37 AM CDT Oxygen Saturation 95% 07/08/2023 10:48 AM GASKET SUPERVISOR Inhaled Oxygen Concentration - - Weight 139.3 kg (307 lb) 07/08/2023 10:48 AM GASKET SUPERVISOR Height 182.9 cm (6') 07/08/2023 10:48 AM GASKET SUPERVISOR Body Mass Index 41.64 07/08/2023 10:48 AM GASKET SUPERVISOR Plan of Treatment Health Maintenance Due Date [...] Procedure Name Priority Date/Time Associated Diagnosis Comments SCAN-LABORATORY REPORT 03/01/2024 12:00 AM CDT SCAN-LABORATORY REPORT 03/01/2024 12:00 AM CDT LIPID PANEL Routine 06/02/2018 12:45 PM GASKET SUPERVISOR Hyperlipidemia, unspecified hyperlipidemia type COLONOSCOPY 05/19/2018 12:59 PM GASKET SUPERVISOR from Last 3 Months or Most Recently Relevant to Health Maintenance Results * SCAN-LABORATORY REPORT (03/01/2024 12:00 AM CDT) Only the most recent of2 resultswithin the time period is included. Scanner OTHER * (ABNORMAL) LIPID PANEL (06/02/2018 12:45 PM GASKET SUPERVISOR) CHOLESTEROL,TOTAL 124 100 - 199 mg/dL 06/02/2018 1:15 PM GASKET SUPERVISOR [facility] TRIGLYCERIDES 332(H) <150 mg/dL 06/02/2018 1:15 PM GASKET SUPERVISOR [facility] HDL CHOLESTEROL 24(L) >40 mg/dL 8 1:15 PM GASKET SUPERVISOR [facility] NON-HDL CHOLESTEROL 100 <145 mg/dl 06/02/2018 1:15 PM GASKET SUPERVISOR [facility] CHOL/HDL RATIO 5.17(H) <4.50 06/02/2018 1:15 PM GASKET SUPERVISOR [facility] LDL CHOLESTEROL 34 <=130 mg/dL 06/02/2018 1:15 PM GASKET SUPERVISOR [facility] PROVIDER ORDERED STATUS RANDOM 06/02/2018 1:15 PM GASKET SUPERVISOR [facility] Blood BLOOD SPECIMEN / Unknown Venipuncture / Unknown 06/02/2018 12:45 PM GASKET SUPERVISOR 06/02/2018 12:47 PM GASKET SUPERVISOR Carlota Cervantes NP CHEMISTRY [address] [address] * COLONOSCOPY (05/19/2018 12:59 PM GASKET SUPERVISOR) 05/19/2018 12:5 9 PM GASKET SUPERVISOR Narrative Transcriptions Nadja Chacon, - 05/19/2018 5:55 PM CST Patient Name: Magen Luu Procedure Date: 05/19/2018 Gender: Male Date of : 1960 Admit Type: Ambulatory Procedure: Colonoscopy Proceduralist: Nadja Chacon MD [facility] Indications/Pre-Op Diagnosis: Screening in patient at increased [...] 4:14 PM 03/03/2016 11:33 AM Care Teams Employee Benefits Director Relationship Specialty Start Date End Date Ru Severino MD [address] [place] [address] PCP - General Family Practice 07/27/21
--- OUTSIDE RECORDS SUMMARY | 2024-04-06 09:59 | XMS_ITS | Clinical Summary ---
Author Organization [facility] Address [address] [place] [address] Care Team Providers Care Architect In Training Name Role Phone Unavailable Primary Care Provider Unavailabl e Source Comments Patient records contain information from all sites at [facility]. For routine questions regarding patient records, call [phone] during business hours, M-F 8:00 AM - 5:00 PM Central Time. Record requests for emergency care only can be directed to [phone] at any time.[facility] Allergies No known active allergies Medications gabapentin [...] on file Legal Sex Male 9:27 PM ART INSTRUCTOR Gender Identity Not on file Sexual Orientation [...] (Annual PHQ-2) 06/23/2023 COVID-19 Vaccine (4 - 2023-2 5 season) 2024 10/01/2021, 10/12/2020, 09/14/2020 Influenza Vaccine [...] 06/30/2009, 08/21/1997 Zoster Vaccines Completed 09/25/2021, 06/20/2021 Insurance [facility]
--- NOTE | 2024-04-06 10:17 | CRLHL7_ITS ---
For Patients: As a result of the Century Cures Act, medical imaging exams and procedure reports are released immediately into your electronic medical record. You may view this report before your referring provider. If you have questions, please contact your health care provider. Indication: ABD DISTENTION, SOB, N/V Technique: CT chest/abdomen/pelvis without IV contrast Comparison: CT chest on April 16, 2023 Findings: Chest: No thyroid nodules. No thoracic lymphadenopathy. The heart is within normal limits in size. No pericardial effusion. Coronary artery and aortic valve calcifications. The thoracic aorta and pulmonary artery are normal in caliber. Examination of the lungs is limited secondary to motion artifact. There are some small patchy airspace opacities in the bilateral lung bases, concerning for an acute infectious/inflammatory process. The airways are clear. Abdomen/pelvis: The liver, gallbladder and biliary system, spleen, pancreas, adrenal glands, kidneys, ureters, bladder, seminal vesicles, prostate, and visualized external genitalia are unremarkable. The stomach is severely distended. There are several loops of dilated small bowel seen throughout the abdomen measuring up to approximately 4.9 centimeters in diameter. There is no clearly delineated transition point, to suggest mechanical small bowel obstruction. Questionable pneumatosis intestinalis versus more likely intraluminal gas seen scattered throughout the small bowel. The appendix is normal. No free fluid or free air. No abdominopelvic lymphadenopathy. No abdominal aortic aneurysm. Mild calcific atherosclerosis of the aortoiliac system. Soft tissue/musculoskeletal: Small fat containing umbilical hernia, with a minimal amount of nonspecific fluid within the herniated fat. No significant fat stranding. Bilateral left greater than right fat containing inguinal hernias. No acute fracture or malalignment. Degenerative changes throughout the spine. No suspicious osseous lesions. Impression: 1. Several loops of dilated small bowel seen throughout the abdomen measuring up to approximately 4.9 centimeters in diameter without clearly delineated transition point, suggestive of adynamic ileus, although small bowel obstruction can not entirely be excluded. Recommend consultation with surgery. 2. Questionable pneumatosis intestinalis versus more likely intraluminal gas seen scattered throughout the small bowel. 3. No free fluid or free air. 4. Examination of the lungs is limited secondary to motion artifact; however, there are some small patchy airspace opacities in the bilateral lung bases, concerning for pneumonia. Please note that all CT scans at this facility use dose modulation, iterative reconstruction, and/or weight-based dosing when appropriate to reduce radiation dose to as low as reasonably achievable. Dictated by Rajat Waldron MD @ 04/06/2024 11:14:05 AM (Electronically Signed)
[2024-04-06] MEDS: 0.9 % SODIUM CHLORIDE 500 ML 500 ML IV (10:27)
[2024-04-06] MEDS: ONDANSETRON 2 MG/ML inj 4 MG IVP ×2 (10:27→13:30)
[2024-04-06 10:29] LABS: Basophils Absolute Auto 0.02 K/uL (0.00-0.30); Basophils Percent Auto 0.2 % (0.0-3.0); Eosinophils Absolute Auto 0.02 K/uL (0.00-0.50); Eosinophils Percent Auto 0.2 % (0.0-7.0); Hematocrit 50.4 % (37.0-53.0); Immature Granulocytes Abs Auto 0.02 K/uL (0.00-0.30); Immature Granulocytes Pct Auto 0.2 %; Lymphocytes Percent Auto 5.8 % (20-44); Mean Corpuscular HGB Conc 32 gm/dL (32-36); Mean Corpuscular Hemoglobin 30 pg (26-34); Mean Corpuscular Volume 95 fL (80-100); Monocytes Percent Auto 5.7 % (0.0-11.0); Neutrophils Percent Auto 87.9 % (42.0-72.0); Platelet Count* 197 K/uL (140-440); RDW Coefficient of Variation % 15.4 % (11.5-15.5); White Blood Count* 10.96 K/uL (4.50-11.00)
[2024-04-06 10:35] LABS: Slide Review Reflex No
[2024-04-06 10:38] LABS: Troponin, Point-of-Care* 0.89 ng/ml (0.01-0.04)
[2024-04-06 10:49] LABS: Albumin* 4.4 g/dL (3.3-5.0); Chloride* 102 mmol/L (96-114)
[2024-04-06 10:50] LABS: Potassium* 4.8 mmol/L (3.6-5.1); Sodium* 139 mmol/L (135-149)
[2024-04-06 10:52] LABS: Alkaline Phosphatase* 87 U/L (40-150); Anion Gap 16 mEq/L (7-15); Aspartate Amino Transferase* 22 U/L (12-35); Bilirubin Direct* 0.3 mg/dL (0.0-0.5); Bilirubin Total* 0.9 mg/dL (0.1-1.5); Blood Urea Nitrogen* 60 mg/dL (7-30); Carbon Dioxide* 21 mmol/L (20-32); Creatinine* 2.3 mg/dL (0.5-1.5); Est. Creatinine Clearance* 36.08; Estimated Glomerular Filt Rate 31 ml/min; Total Protein* 7.2 g/dL (6.0-8.3)
[2024-04-06 10:53] LABS: Alanine Aminotransferase* 13 U/L (4-50); Calcium* 9.6 mg/dL (8.4-10.6); Lipase* 258 U/L (23-300)
[2024-04-06 10:54] LABS: Glucose* 356 mg/dL (60-115)
--- OUTSIDE RECORDS SUMMARY | 2024-04-06 11:00 | XMS_ITS ---
Author Organization [facility] Address [address] [place] [address] Care Team Providers Care Adjunct Phlebotomy Instructor Name Role Phone Unavailable Unavailable Unavailable Surgery Details Not on file Complications Check Surgery Details section. Procedure Estimated Blood Loss Check Surgery Details section. Procedure Findings Check Surgery Details section. Procedure Specimens Taken Check Surgery Details section.
--- OUTSIDE RECORDS SUMMARY | 2024-04-06 11:00 | XMS_ITS | Encounter Summary ---
Author Organization [facility] Address [address] [facility] [address] [place] [address] Care Team Providers Care Cab Station Attendant Name Role Phone Ru Severino MD Primary Care Provider [phone] Reason for Visit * Reason Comments Follow-up Encounter Details Date Type Department Care Team (Latest Contact Info) Description 03/11/2024 10:30 AM EDT Office Visit [facility] [address] [place] [address] Celi Nunez, NURSING MANAGER-STEEL ROLLER [address] [place] [address] Stage 3a chronic kidney disease [...] weeks prior. They will be faxed to [facility] in [place]. Celi Nunez CNP/DWIGHT Torres documented in this encounter Progress Notes * Celi Nunez APRN-CNP - 03/11/2024 10:30 AM CDT Images from the original note were not included. Patient: Magen Luu Date of : 1960 Chart: [id number] PCP: Ru Severino MD Date of Service: [...] hematuria, and edema. SH: He lives in [place] with his The following portions of the [...] needed bumetanide (Bumex) 1 MG tablet Leon Apipah NP Take 3 tablets (3 mg total) [...] evening. hydrALAZINE 25 MG tablet Celi Nunez, NURSING MANAGER-ALESIA Take 3 tablets (75 mg total) by [...] Nancy Nunez APRN CNP [facility]: [phone] documented in this encounter Plan of Treatment [...] specified documented in this encounter Care Teams Cab Station Attendant Relationship Specialty Start Date End Date Ru Severino MD [address] [place] [address] PCP - General Family Medicine 04/22/23 documented as of this encounter
--- OUTSIDE RECORDS SUMMARY | 2024-04-06 11:00 | XMS_ITS | Encounter Summary ---
Author Organization [facility] Address [address] [place] [address] Care Team Providers Care Instructor Trainer Canine Service Name Role Phone Ru Severino MD Primary Care Provider [phone] Encounter Details Date Type Department Care Team (Latest Contact Info) Description 03/10/2024 9:00 AM EDT Clinical Support [facility] [place] [address] [place] [address] Bailey Glover, RD [address] [place] [address] Stage 3b chronic kidney disease [...] Aim to keep your sodium intake between 7521-7280 mg each day.Cutting down on packaged foods [...] for Telehealth visit was obtained by the Stove Refinisher at the start of today's visit. Magen Luu was at home, Juany Muro MA and I participated in the Telehealth services located at [facility] [address] [address] . MONITORING / EVALUATION Will monitor nutrition related labs and kidney function. Follow up in 1 yr. Bailey Glover MS, RD, LD documented in this encounter Plan of Treatment Not on file documented as of this encounter Visit Diagnoses Diagnosis Stage 3b chronic kidney disease (HCC)- Primary documented in this encounter Care Teams Instructor Trainer Canine Service Relationship Specialty Start Date End Date Ru Severino MD [address] [place] [address] PCP - General Family Medicine 04/22/23 documented as of this encounter
--- OUTSIDE RECORDS SUMMARY | 2024-04-06 11:00 | XMS_ITS | Encounter Summary ---
Author Organization [facility] Address [address] [place] [address] Care Team Providers Care Department Store Salesperson Name Role Phone Ru Severino MD Primary Care Provider [phone] Encounter Details Date Type Department Care Team (Late st Contact Info) Description 12/26/2023 Orders Only [facility] [address] [place] [address] Tommy Crzu MD [address] [place] [address] Stage 3b chronic kidney disease [...] ED LABS) Microalbumin/Crea t Ratio, Random 2,210(H) PRINT/COUTURIERE A L (NON-INTERFAC ED LABS) Urine (Urine, Clean Catch) 03/01/2024 11:05 AM CDT Tommy Cruz MD LAB URINE ORDERABLES Performing Organization Address City/[facility]/ZIP Co de Phone Number PRINT/EXTERNAL (NON-INTERFACED [...] (HCC) documented in this encounter Care Teams Department Store Salesperson Relationship Specialty Start Date End Date Ru Severino MD [address] [place] [address] PCP - General Family Medicine 04/22/23 documented as of this encounter
--- OUTSIDE RECORDS SUMMARY | 2024-04-06 11:00 | XMS_ITS | Clinical Summary ---
Author Organization [facility] Address [place], [place] [address] Care Team Providers Care Railroad Brakeman Name Role Phone Ru Severino MD Primary [...] Department Care Team Description 03/01/2024 Orders Only [facility] Scanner 1 scan: ([facility]-Ord[facility], MULTIPLE RESULTS, 03/01/2024 03/01/2024 Orders Only [facility] Scanner 1 scan: (1-Ord[facility], RESULTS, 03/01/2024 from Last 3 Months Immunizations Name Administration Dates Next Due Influenza, IIV3 (Age >=3 years) 06/01/2013,05/23,03/28/2009 Influenza, IIV4 06/02/2018,06/06/2015 Td (Age >=7 Years) 08/21/1997 Tdap 06/30/2009 Family History Medical History Relation Name Comments Cancer Brother 1 Diabetes Brother 1 age 20 Cancer-colon Brother 2 Uvaldo Heart Disease Father from [place] at age 48 Asthma Mother at age [...] Comments Blood Pressure 138/76 07/08/2023 10:48 AM ELECTRICAL MACHINE BUILDER Pulse 68 07/08/2023 10:48 AM ELECTRICAL MACHINE BUILDER Temperature 36.6 ??C (97.8 ??F) 04/19/2023 11:37 AM C DT Respiratory Rate 16 04/19/2023 11:37 AM CDT Oxygen Saturation 95% 07/08/2023 10:48 AM ELECTRICAL MACHINE BUILDER Inhaled Oxygen Concentration - - Weight 139.3 kg (307 lb) 07/08/2023 10:48 AM ELECTRICAL MACHINE BUILDER Height 182.9 cm (6') 07/08/2023 10:48 AM ELECTRICAL MACHINE BUILDER Body Mass Index 41.64 07/08/2023 10:48 AM ELECTRICAL MACHINE BUILDER Plan of Treatment Health Maintenance Due Date [...] CDT LIPID PANEL Routine 06/02/2018 12:45 PM ELECTRICAL MACHINE BUILDER Hyperlipidemia, unspecified hyperlipidemia type COLONOSCOPY 05/19/2018 12:59 PM ELECTRICAL MACHINE BUILDER from Last 3 Months or Most Recently Relevant to Health Maintenance Results * SCAN-LABORATORY REPORT (03/01/2024 12:00 AM CDT) Only the most recent of2 resultswithin the time period is included. Scanner OTHER * (ABNORMAL) LIPID PANEL (06/02/2018 12:45 PM ELECTRICAL MACHINE BUILDER) CHOLESTEROL,TOTAL 124 100 - 199 mg/dL 06/02/2018 1:15 PM ELECTRICAL MACHINE BUILDER [facility] TRIGLYCERIDES 332(H) <150 mg/dL 06/02/2018 1:15 PM ELECTRICAL MACHINE BUILDER [facility] HDL CHOLESTEROL 24(L) >40 mg/dL 8 1:15 PM ELECTRICAL MACHINE BUILDER [facility] NON-HDL CHOLESTEROL 100 <145 mg/dl 06/02/2018 1:15 PM ELECTRICAL MACHINE BUILDER [facility] CHOL/HDL RATIO 5.17(H) <4.50 06/02/2018 1:15 PM ELECTRICAL MACHINE BUILDER [facility] LDL CHOLESTEROL 34 <=130 mg/dL 06/02/2018 1:15 PM ELECTRICAL MACHINE BUILDER [facility] PROVIDER ORDERED STATUS RANDOM 06/02/2018 1:15 PM ELECTRICAL MACHINE BUILDER [facility] Blood BLOOD SPECIMEN / Unknown Venipuncture / Unknown 06/02/2018 12:45 PM ELECTRICAL MACHINE BUILDER 06/02/2018 12:47 PM ELECTRICAL MACHINE BUILDER Carlota Cervantes NP CHEMISTRY [address] [address] * COLONOSCOPY (05/19/2018 12:59 PM ELECTRICAL MACHINE BUILDER) 05/19/2018 12:5 9 PM ELECTRICAL MACHINE BUILDER Narrative Transcriptions Nadja Chacon, - 05/19/2018 5:55 PM CST Patient Name: Magen Luu Procedure Date: 05/19/2018 Gender: Male Date of : 1960 Admit Type: Ambulatory Procedure: Colonoscopy Proceduralist: Nadja Chacon MD [facility] Indications/Pre-Op Diagnosis: Screening in patient at [...] 4:14 PM 03/03/2016 11:33 AM Care Teams Railroad Brakeman Relationship Specialty Start Date End Date Ru Severino MD [address] [place] [address] PCP - General Family Practice 07/27/21
--- OUTSIDE RECORDS SUMMARY | 2024-04-06 11:00 | XMS_ITS | Clinical Summary ---
Author Organization [facility] [place] Address [address] [place] [address] Phone Care Team Providers Care Sports Coordinator Name Role Phone Ru Severino MD Primary Care Provider [phone] Allergies No known active allergies Medications Medication [...] [place] [address] Mayra Celi Jacey, INFORMATION MANAGER-ROLLING UP MACHINE OPERATOR Stage 3a chronic kidney disease (HCC) (Primary [...] AM EDT Clinical Support [facility] [place] [address] Stage 3b chronic kidney disease (HCC) (Primary Dx) 02/25/2024 Telephone [facility] [place] [address] [facility] [address] [place] [address] Brian Vail 01/13/2024 Office Communication [facility] [address] [address] Светлана Castillo 01/08/2024 Office Communication [facility] [address] [address] Светлана Castillo from Last 3 Months Immunizations [...] ED LABS) Microalbumin/Crea t Ratio, Random 2,210(H) PRINT/SOCIAL SCIENCES DEPARTMENT CHAIR A L (NON-INTERFAC ED LABS) Urine (Urine, [...] Blood (Blood, Venous) 03/01/2024 11:05 AM CDT Tmomy Cruz MD LAB BLOOD ORDERABLES PRINT/EXTERNAL (NON-INTERFACED LABS) from Last 3 Months Care Teams Sports Coordinator Relationship Specialty Start Date End Date Ru Severino MD [address] [place] [address] PCP - General Family Medicine 04/22/23
--- OUTSIDE RECORDS SUMMARY | 2024-04-06 11:00 | XMS_ITS | Clinical Summary ---
Author Organization [facility] Address [address] [place] [address] Care Team Providers Care Fountain Pen Nibs Inspector Name Role Phone Unavailable Primary Care Provider Unavailabl e Source Comments Patient records contain information from all sites at [facility]. For routine questions regarding patient records, call [phone] during business hours, M-F 8:00 AM - 5:00 PM Central Time. 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
--- OUTSIDE RECORDS SUMMARY | 2024-04-06 11:00 | XMS_ITS | Encounter Summary ---
Author Organization [facility] Address [address] [place] [address] Care Team Providers Care Resident Care Manager Name Role Phone Ru Severino MD Primary Care Provider [phone] Encounter Details Date Type Department Care Team (Late st Contact Info) Description 01/13/2024 Office Communication [facility] [place] [address] [place] [address] Светлана Castillo [address] [place] [address] Social History Tobacco Use Types [...] on filedocumented in this encounter Care Teams Resident Care Manager Relationship Specialty Start Date End Date Ru Severino MD [address] [place] [address] PCP - General Family Medicine 04/22/23 documented as of this encounter
--- OUTSIDE RECORDS SUMMARY | 2024-04-06 11:00 | XMS_ITS | Referral Summary ---
Author Organization [facility] Address [address] [place] [address] Care Team Providers Care Assembly Machine Set Up Mechanic Name Role Phone Unavailable Primary Care Provider Unavailabl e Source Comments Patient records contain information from all sites at [facility]. For routine questions regarding patient records, call [phone] during business hours, M-F 8:00 AM - 5:00 PM Central Time. 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
--- OUTSIDE RECORDS SUMMARY | 2024-04-06 11:00 | XMS_ITS | Encounter Summary ---
Author Organization [facility] Address [address] [place] [address] Care Team Providers Care Programs Assistant Name Role Phone Ru Severino MD Primary Care Provider [phone] Encounter Details Date Type Department Care Team (Late st Contact Info) Description 02/25/2024 Telephone [facility] [place] [address] [place] [address] Brian Vail [address] [place] [address] Social History Tobacco Use Types [...] to their office visit. Orders Faxed to [facility] documented in this encounter Plan of Treatment Not on file documented as of this encounter Visit Diagnoses Not on filedocumented in this encounter Care Teams Programs Assistant Relationship Specialty Start Date End Date Ru Severino MD [address] [place] [address] PCP - General Family Medicine 04/22/23 documented as of this encounter
--- OUTSIDE RECORDS SUMMARY | 2024-04-06 11:00 | XMS_ITS | Encounter Summary ---
Author Organization [facility] Address [address] [place] [address] Care Team Providers Care Crabber Name Role Phone Ru Severino MD Primary Care Provider [phone] Encounter Details Date Type Department Care Team (Late st Contact Info) Description 01/08/2024 Office Communication [facility] [place] [address] [place] [address] Светлана Castillo [address] [place] [address] Social History Tobacco Use Types [...] 9:30 AM CDT Pt asked if their urban planning teacher follow up in February could be a telehealth appt. Please advise documented in this encounter Plan of Treatment Not on file documented as of this encounter Visit Diagnoses Not on filedocumented in this encounter Care Teams Crabber Relationship Specialty Start Date End Date Ru Severino MD [address] [place] [address] PCP - General Family Medicine 04/22/23 documented as of this encounter
--- NOTE | 2024-04-06 12:18 | ED_ITS ---
HPI - General Adult General Chief complaint: Shortness of Breath/Dyspnea Stated complaint: Hard to breathe, bloating, nauseous Time Seen by Provider: 04/06/24 10:16 History of Present Illness HPI narrative: This 63-year-old male comes in reporting abdominal distension with nausea and emesis that occurred last evening. He does not report any chest pain. Immediately upon arrival he had a large dark emesis. He states that he is feeling a bit better with this. He does have a history of diabetes with stage 3 chronic kidney disease. He also had a large pulmonary embolism about a year ago and is currently taking Eliquis. He does not report any prior history of abdominal surgery. Related Data Home Medications ?Medication ?Instructions ?Recorded ?Confirmed albuterol sulfate 90 mcg/actuation 2 puff inhalation Q4H PRN 01/02/22 11/04/23 aerosol inhaler blood sugar diagnostic (Blood 02/20/22 11/04/23 Glucose Test strips) tolterodine 2 mg capsule,extended 2 mg PO DAILY 02/06/23 11/04/23 release 24 hr modafinil 100 mg tablet 100 mg PO BID PRN 04/14/23 11/04/23 aspirin 325 mg tablet,delayed 0.5 mg PO DAILY 11/03/23 11/03/23 release empagliflozin 10 mg tablet 10 mg PO DAILY 11/03/23 11/03/23 (Jardiance) walker 11/03/23 11/03/23 bumetanide 1 mg tablet 3 mg PO QDAY 11/04/23 11/04/23 Previous Rx's ?Medication ?Instructions ?Recorded fluticasone propionate 50 2 spray intranasal QDAY #16 grams 02/21/22 mcg/actuation nasal spray,suspension (Flonase Allergy Relief) insulin aspart U-100 100 unit/mL 10 - 15 unit (0.1 - 0.15 mL) 06/27/23 (3 mL) subcutaneous pen subcut TID #30 mL metoclopramide HCl 10 mg tablet 10 mg PO TID PRN nausea and 07/30/23 vomiting #270 tabs fenofibrate 160 mg tablet 160 mg PO QDAY #90 tabs 08/13/23 gabapentin 400 mg capsule 400 mg PO BID #180 caps 09/24/23 tamsulosin 0.4 mg capsule 0.4 mg PO Q24H #90 caps 11/13/23 apixaban 5 mg tablet (Eliquis) 5 mg PO BID #60 tabs 11/24/23 metformin 500 mg tablet,extended 1,000 mg (2 x 500 mg) PO BID #360 11/24/23 release 24 hr tabs hydralazine 25 mg tablet 50 mg (2 x 25 mg) PO BID #360 tabs 12/18/23 carvedilol 25 mg tablet 50 mg (2 x 25 mg) PO BID #360 tabs 01/02/24 insulin glargine 100 unit/mL (3 60 unit (0.6 mL) subcut QAM #60 mL 01/02/24 mL) subcutaneous pen (Basaglar KwikPen U-100 Insulin) Allergies Allergy/AdvReac Type Severity Reaction Status Date / Time No Known Drug Allergies Allergy Verified 11/04/23 10:40 Review of Systems Status of ROS: Reports: 10 or more systems reviewed and unremarkable except as noted in History and below Narrative: Constitutional: No fevers, no weight gain or loss. Eyes: No discharge. No vision changes. HENT: No congestion, no sore throat, no ear pain. Cardiovascular: No chest pain, no palpitations. Respiratory: No shortness of breath, no wheezes, no cough. Gastrointestinal: Abdominal distension with mild discomfort. Nausea with 2 vomiting episodes. Genitourinary: No dysuria, no hematuria. Musculoskeletal: Normal range of motion. Skin: No rashes, no pruritis. Neurological: No dizziness, weakness, sensory change, speech change. Endo/Heme/Allergies: No bruising or bleeding. No polydipsia. Pysch: no suicidality, no anxiety, no insomnia. All other systems reviewed and are negative. [facility] Medical History (Updated 04/06/24 @ 14:26 by Thomas Farris MD) Chronic anticoagulation ?Z79.01 - ferry terminal agent (current) use of anticoagulants (ICD-10) Morbid obesity ?E66.01 - Morbid (severe) obesity due to excess calories (ICD-10) Hypertensive heart and chronic kidney disease stage 3 ?I13.10 - Hypertensive heart and chronic kidney disease without heart failure, with stage 1 through stage 4 chronic kidney disease, or unspecified chronic kidney disease (ICD-10) ?N18.30 - Chronic kidney disease, stage 3 unspecified (ICD-10) History of pulmonary embolism (04/16/23) ?Z86.711 - Personal history of pulmonary embolism (ICD-10) Microalbuminuria due to type 2 diabetes mellitus ?E11.29 - Type 2 diabetes mellitus with other diabetic kidney complication (ICD-10) ?R80.9 - Proteinuria, unspecified (ICD-10) GERTRUDE on CPAP ?G47.33 - Obstructive sleep apnea (adult) (pediatric) (ICD-10) ?Z99.89 - Dependence on other enabling machines and devices (ICD-10) CHEW (dyspnea on exertion) ?R06.09 - Other forms of dyspnea (ICD-10) Type 2 diabetes mellitus, with long-term current use of insulin (11/2004) ?E11.9 - Type 2 diabetes mellitus without complications (ICD-10) ?Z79.4 - USP (current) use of insulin (ICD-10) Umbilical hernia ?K42.9 - Umbilical hernia without obstruction or gangrene (ICD-10) Primary hypertension ?I10 - Essential (primary) hypertension (ICD-10) Mixed hyperlipidemia ?E78.2 - Mixed hyperlipidemia (ICD-10) Narcolepsy ?G47.419 - Narcolepsy without cataplexy (ICD-10) Allergic rhinitis ?J30.9 - Allergic rhinitis, unspecified (ICD-10) Sepsis due to methicillin resistant Staphylococcus aureus (MRSA) (01/20/17) ?A41.02 - Sepsis due to Methicillin resistant Staphylococcus aureus (ICD-10) Trigger thumb of both hands ?M65.311 - Trigger thumb, right thumb (ICD-10) ?M65.312 - Trigger thumb, left thumb (ICD-10) Umbilical hernia ?K42.9 - Umbilical hernia without obstruction or gangrene (ICD-10) Venous stasis ?I87.8 - Other specified disorders of veins (ICD-10) Vitamin D deficiency ?E55.9 - Vitamin D deficiency, unspecified (ICD-10) Diabetic polyneuropathy ?E11.42 - Type 2 diabetes mellitus with diabetic polyneuropathy (ICD-10) PVD (peripheral vascular disease) ?I73.9 - Peripheral vascular disease, unspecified (ICD-10) Diabetic retinopathy ?E11.319 - Type 2 diabetes mellitus with unspecified diabetic retinopathy without macular edema (ICD-10) Erectile dysfunction ?N52.9 - Male erectile dysfunction, unspecified (ICD-10) Thrombocytopenia ?D69.6 - Thrombocytopenia, unspecified (ICD-10) Diabetic gastroparesis ?E11.43 - Type 2 diabetes mellitus with diabetic autonomic (poly)neuropathy (ICD-10) ?K31.84 - Gastroparesis (ICD-10) Surgical History (Updated 10/30/23 @ 14:09 by Sada Nicholas) History of carpal tunnel release of both wrists ?Z98.890 - Other specified postprocedural states (ICD-10) 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 ?S98.132A - Complete traumatic amputation of one left lesser toe, initial encounter (ICD-10) History of arthroscopy of right knee (1977) ?Z98.890 - Other specified postprocedural states (ICD-10) Family History (Updated 10/30/23 @ 14:09 by Sada Nicholas) Brother Colon cancer, Onset Age: 45 Prostate cancer, Onset Age: 65 Diabetes Father Heart disease, Onset Age: 48 Mother Asthma Social History (Updated 04/22/23 @ 13:05 by Stella Page ~ [facility], [facility]) 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 Non-smoker What is your current living situation?: I presently have a place to live Problems where you live: no known problems In the past 12 months, utilities in danger of being shut off: no In past 12 months, lack of transportation kept you from medical appts, meetings, work, or getting things needed for daily living: no In the past 12 mos, have been you worried that your food would run out before you had money to buy more?: never true In the past 12 mos, the food you bought just didn't last and you didn't have money to buy more?: never true Smoking Status: Never smoker How often do you have a drink containing alcohol: never AUDIT-C Alcohol total score: 0 Non-prescribed substance use: denies use How often does anyone, including family, friends and others, physically hurt you : never How often does anyone, including family, friends and others, insult or talk down to you: never How often does anyone, including family, friends and others, threaten you with harm: never How often does anyone, including family, friends and others, scream or curse at you: never Little interest or pleasure in doing things: not at all Feeling down, depressed, or hopeless: not at all Exam Narrative: Exam Narrative: Constitutional: Well-developed, well-nourished, no acute distress. HEENT: Normocephalic, atraumatic. Neck: Normal range of motion. Nontender. Supple. Heart: Regular. No murmurs. Normal rate. Intact distal pulses. Lungs: Clear to auscultation. No chest discomfort. No wheezes, rhonchi, or rales. Abdomen: Normal bowel sounds. Distended. Mild tenderness. No rebound tenderness. Genitalia: Deferred. Back: No midline tenderness. Normal range of motion. Extremities: Normal range of motion. No injury. Skin: Intact. No rash. Warm. No erythema or pallor. Neurologic: No altered sensation. No weakness. Alert and oriented. Psychiatric: No suicidality. No anxiety or depression. No insomnia. Nursing notes and vitals signs are reviewed. Const: Vital Signs, click to edit/add: Vital Signs - 24 hr 04/06/24 09:59 04/06/24 10:25 04/06/24 10:44 Temperature 6.5 F L Pulse Rate [Pulse Oximeter] 108 H Respiratory Rate 20 Blood Pressure 129/79 126/73 Blood Pressure [Ri ght Upper Arm] 140/86 H Pulse Oximetry 94 Oxygen Delivery Me thod Room Air 04/06/24 10:47 04/06/24 11:01 04/06/24 11:16 Temperature Pulse Rate [Pulse Oximeter] Respiratory Rate Blood Pressure 124/65 122/59 L 124/67 Blood Pressure [Ri ght Upper Arm] Pulse Oximetry Oxygen Delivery [place] thod 04/06/24 11:32 04/06/24 11:47 04/06/24 12:01 Temperature Pulse Rate [Pulse Oximeter] Respiratory Rate Blood Pressure 132/82 146/84 H 142/80 H Blood Pressure [Ri ght Upper Arm] Pulse Oximetry Oxygen Delivery Ky thod 04/06/24 12:16 04/06/24 12:31 04/06/24 12:47 Temperature Pulse Rate [Pulse Oximeter] Respiratory Rate Blood Pressure 131/80 125/76 116/79 Blood Pressure [Ri ght Upper Arm] [facility] 04[facility] 13:01 Temperature Pulse Rate [Pulse Oximeter] Respiratory Rate Blood Pressure 119/73 Blood Pressure [Ri ght Upper Arm] Pulse Oximetry Oxygen Delivery Me thod Course Vital Signs Vital signs: Initial Vital Signs Temperature 6.5 F L 04/06/24 09:59 Temperature Source Temporal Artery Scan 04/06/24 09:59 Pulse Rate 108 H 04/06/24 09:59 Respiratory Rate 20 04/06/24 09:59 Respiratory Effort Short of Breath 04/06/24 09:59 Respiratory Depth Normal 04/06/24 09:59 Respiratory Pattern Normal 04/06/24 09:59 Blood Pressure 140/86 H 04/06/24 09:59 Blood Pressure Mean 104 04/06/24 09:59 Blood Pressure Position Sitting 04/06/24 09:59 Pulse Oximetry 94 04/06/24 09:59 Oxygen Delivery Method Room Air 04/06/24 09:59 Vital Signs Temperature 6.5 F L 04/06/24 09:59 Pulse Rate 108 H 04/06/24 09:59 Respiratory Rate 20 04/06/24 09:59 Blood Pressure 140/86 H 04/06/24 09:59 Pulse Oximetry 94 04/06/24 09:59 Oxygen Delivery Method Room Air 04/06/24 09:59 Temperature 6.5 F L 04/06/24 09:59 Pulse Rate 108 H 04/06/24 09:59 Respiratory Rate 20 04/06/24 09:59 Blood Pressure 119/73 04/06/24 13:01 Pulse Oximetry 94 04/06/24 09:59 Oxygen Delivery Method Room Air 04/06/24 09:59 Medications Administered Medications: Discontinued Medications Generic Name Dose Route Start Last Admin Trade Name Freq PRN Reason Stop Dose Admin Sodium Chloride 500 mls @ 500 mls/hr 04/06/24 10:16 04/06/24 10:27 0.9 % Sodium Chloride 500 Ml IV 04/06/24 11:15 500 mls/hr .Q1H ONE Administration Ondansetron HCl 4 mg 04/06/24 10:16 04/06/24 10:27 Ondansetron 2 Mg/Ml Inj IVP 04/06/24 10:17 4 mg ONCE ONE Administration Ondansetron HCl 4 mg 04/06/24 13:22 04/06/24 13:30 Ondansetron 2 Mg/Ml Inj IVP 04/06/24 13:23 4 mg ONCE ONE Administration Medical Decision Making MDM Narrative Medical decision making narrative: This patient comes in reporting abdominal distension with nausea and some vomi ting. Immediately upon arrival he had a large dark emesis that was odorous of stool. An IV was established and labs are acquired. I ordered a CT scan of the chest, abdomen, and pelvis. The patient has a history of a large pulmonary embolism and is currently on Eliquis. He also has history of renal insufficiency and diabetes. On exam he is not complaining much of pain and did have rather normal-sounding bowel sounds without rebound tenderness on his abdomen. His labs returned notable for elevated troponin at 0.89. His EKG did not show any ST or T-wave abnormalities. I did contact a driver wheelchair on-call at [facility], Dr. Glaser, who stated that this seemed more like demand ischemia but recommended that he be followed and the troponins trended. I spoke then with the hospitalist there who felt that perhaps he could stay here if the troponin is trending normally. Repeat troponin did return at 0.71. The patient did not ever have any chest pain. I spoke with the surgeon on-call here regarding these findings who stated that he could be observed here and if needed might benefit from an NG tube. I spoke with hospitalist on-call, Dr. Leon, who agreed to his admission here. The patient did receive 500 mL of normal saline intravenously. He also received a dose of Zofran 4 mg. Lab Data Labs: Lab Results 04/06/24 04/06/24 04/06/24 Range/Units 10:16 12:18 13:16 WBC 10.96 (4.50-11.00) K/uL RBC 5.30 (4.30-5.90) m/uL Hgb 16.0 (13.5-17.5) gm/dL Hct 50.4 (37.0-53.0) % MCV 95 (80-100) fL MCH 30 (26-34) pg MCHC 32 (32-36) gm/dL RDW Coeff of Bill 15.4 (11.5-15.5) % Plt Count 197 (140-440) K/uL Neut % (Auto) 87.9 H (42.0-72.0) % Lymph % (Auto) 5.8 L (20-44) % Emmons % (Auto) 5.7 (0.0-11.0) % Eos % (Auto) 0.2 (0.0-7.0) % Baso % (Auto) 0.2 (0.0-3.0) % Neut # (Auto) 9.60 H (1.7-7.0) K/uL Lymph # (Auto) 0.60 L (0.90-2.90) K/uL Emmons # (Auto) 0.60 (0.00-0.90) K/UL Eos # (Auto) 0.02 (0.00-0.50) K/uL Baso # (Auto) 0.02 (0.00-0.30) K/uL Abs Immat Gran (auto) 0.02 (0.00-0.30) K/uL Imm/Tot Granulo (auto) 0.2 % Sodium 139 (135-149) mmol/L Potassium 4.8 (3.6-5.1) mmol/L Chloride 102 (96-114) mmol/L Carbon Dioxide 21 (20-32) mmol/L Anion Gap 16 H (7-15) mEq/L BUN 60 H (7-30) mg/dL Creatinine 2.3 H (0.5-1.5) mg/dL Estimated Creat Clear 36.08 Estimated GFR 31 ml/min Glucose 356 H* (60-115) mg/dL Lactate 2.5 H (0.5-1.9) mmol/L Calcium 9.6 (8.4-10.6) mg/dL Total Bilirubin 0.9 (0.1-1.5) mg/dL Direct Bilirubin 0.3 (0.0-0.5) mg/dL AST 22 (12-35) U/L ALT 13 (4-50) U/L Alkaline Phosphatase 87 (40-150) U/L Total Protein 7.2 (6.0-8.3) g/dL Albumin 4.4 (3.3-5.0) g/dL Lipase 258 (23-300) U/L POC Troponin I 0.89 H 0.71 H (0.01-0.04) ng/ml ECG Data Attestation: I personally reviewed and interpreted this ECG as follows: Interpretation: Rate is 94 beats per minute. There are no ST or T-wave abnormalities. Marked sinus arrhythmia. Discharge Plan Discharge Clinical Impression: Adynamic ileus, Elevated troponin, Renal insufficiency Patient Disposition: Admitted As Observation Condition: Unchanged Prescriptions: No Action (DME) Blood Glucose Test Strip See Rx Instructions .Route Rx Instructions: Use to check blood glucose 4 times daily fluticasone propionate [Flonase Allergy Relief] 50 mcg/actuation spray,suspension 2 spray intranasal QDAY Qty: 16 5RF Rx Instructions: administer into each nostril modafinil 100 mg tablet 100 mg PO BID PRN aspirin 325 mg tablet,delayed release (DR/EC) 0.5 mg PO DAILY (DME) walker Misc See Rx Instructions .ROUTE Rx Instructions: As directed Jardiance 10 mg tablet 10 mg PO DAILY bumetanide 1 mg tablet 3 mg PO QDAY tolterodine 2 mg capsule,extended release 24hr 2 mg PO DAILY albuterol sulfate 90 mcg/actuation HFA aerosol inhaler 2 puff INHALATION Q4H PRN Patient Comments: INHALE 2 PUFFS BY MOUTH EVERY 4 HOURS NEEDED FOR WHEEZING OR DIFFICULT BREATHING insulin aspart U-100 100 unit/mL (3 mL) insulin pen 10 - 15 unit SUBCUT TID MDD 45 Qty: 30 5RF metoclopramide HCl 10 mg tablet 10 mg PO TID PRN (Reason: nausea and vomiting) Qty: 270 1RF fenofibrate 160 mg tablet 160 mg PO QDAY Qty: 90 0RF gabapentin 400 mg capsule 400 mg PO BID Qty: 180 0RF tamsulosin 0.4 mg capsule 0.4 mg PO Q24H Qty: 90 2RF metformin 500 mg tablet extended release 24 hr 1,000 mg PO BID Qty: 360 1RF Eliquis 5 mg tablet 5 mg PO BID Qty: 60 4RF hydralazine 25 mg tablet 50 mg PO BID Qty: 360 3RF carvedilol 25 mg tablet 50 mg PO BID Qty: 360 2RF insulin glargine [Basaglar KwikPen U-100 Insulin] 100 unit/mL (3 mL) insulin pen 60 unit subcut QAM Qty: 60 1RF Follow Up/Referrals: Ru Severino MD [Primary Care Provider] -
[2024-04-06 12:33] LABS: Troponin, Point-of-Care* 0.71 ng/ml (0.01-0.04)
[2024-04-06 13:19] LABS: Lactate* 2.5 mmol/L (0.5-1.9)
[2024-04-06] MEDS: PROCHLORPERAZINE 5 MG/ML VIAL 10 MG IV (15:35)
[2024-04-06 16:26] LABS: HCO3 VBG 21 mmol/L (21-28); Lactate* 2.3 mmol/L (0.5-1.9); PCO2 VBG 43 mmHG (40-50); PO2 VBG 36.5 mmHG (25-47)
[2024-04-06 16:29] LABS: Basophils Absolute Auto 0.01 K/uL (0.00-0.30); Basophils Percent Auto 0.1 % (0.0-3.0); Hematocrit 45.7 % (37.0-53.0); Hemoglobin* 14.5 gm/dL (13.5-17.5); Immature Granulocytes Abs Auto 0.01 K/uL (0.00-0.30); Immature Granulocytes Pct Auto 0.1 %; Mean Corpuscular HGB Conc 32 gm/dL (32-36); Mean Corpuscular Hemoglobin 30 pg (26-34); Mean Corpuscular Volume 95 fL (80-100); Monocytes Percent Auto 6.2 % (0.0-11.0); Neutrophils Percent Auto 87.6 % (42.0-72.0); Platelet Count* 163 K/uL (140-440); RDW Coefficient of Variation % 15.4 % (11.5-15.5); White Blood Count* 10.27 K/uL (4.50-11.00)
[2024-04-06] MEDS: 0.9 % SODIUM CHLORIDE 1000 ml 1,000 ML 500 ML IV (16:31)
[2024-04-06 16:33] LABS: Slide Review Reflex No
[2024-04-06] MEDS: PIPERACILLIN/TAZOBACTAM 3.375 GM in 0.9 % SODIUM CHLORIDE Mini-bag 100 ML IVPB ×2 (16:52→21:38)
[2024-04-06] MEDS: PANTOPRAZOLE SODIUM 40 MG INJ IVP (16:53)
[2024-04-06 17:07] LABS: Troponin I* 1.01 ng/mL (0.01-0.04)
--- NOTE | 2024-04-06 18:37 | PM.GSCN ---
History of Present Illness Consult details Date Seen: 04/06/24 Consult date: 04/06/24 Narrative: Patient is a 63-year-old male presented to the emergency department with 2 days of abdominal pain, nausea and vomiting. On Friday night the patient woke up with pain all around his belly. He has never had pain like this before. He had some nausea and vomited a large amount, which made him feel better. After vomiting he felt short of breath and sat in his recliner to trying get some sleep. All day Friday the pain seemed to come and go and he continued to have nausea and vomiting. He has continued to pass gas and have diarrhea during this time. He describes the vomit as foul odor and dark. He last ate on Friday night. His daughter did get on Friday and he celebrated. He is a nonsmoker. He does drink nearly every day (3-5 drinks). He has never had abdominal surgery before. He denies any current distension or abdominal pain. Patient's past medical history is significant for an unprovoked pulmonary emboli in 2022. Since then he has been on chronic anticoagulation with Eliquis. He last took his Eliquis this morning around 9:00 a.m.. He also has a history of morbid obesity, renal insufficiency and poorly controlled diabetes. Review of Systems Status of ROS: Reports: 6 or more systems reviewed and unremarkable except as noted in History and below [facility] Medical History (Updated 04/06/24 @ 14:26 by Thomas Farris MD) Chronic anticoagulation ?Z79.01 - buttermilk drier operator (current) use of anticoagulants (ICD-10) Morbid obesity ?E66.01 - Morbid (severe) obesity due to excess calories (ICD-10) Hypertensive heart and chronic kidney disease stage 3 ?I13.10 - Hypertensive heart and chronic kidney disease without heart failure, with stage 1 through stage 4 chronic kidney disease, or unspecified chronic kidney disease (ICD-10) ?N18.30 - Chronic kidney disease, stage 3 unspecified (ICD-10) History of pulmonary embolism (04/16/23) ?Z86.711 - Personal history of pulmonary embolism (ICD-10) Microalbuminuria due to type 2 diabetes mellitus ?E11.29 - Type 2 diabetes mellitus with other diabetic kidney complication (ICD-10) ?R80.9 - Proteinuria, unspecified (ICD-10) GERTRUDE on CPAP ?G47.33 - Obstructive sleep apnea (adult) (pediatric) (ICD-10) ?Z99.89 - Dependence on other enabling machines and devices (ICD-10) CHEW (dyspnea on exertion) ?R06.09 - Other forms of dyspnea (ICD-10) Type 2 diabetes mellitus, with long-term current use of insulin (11/2004) ?E11.9 - Type 2 diabetes mellitus without complications (ICD-10) ?Z79.4 - buttermilk drier operator (current) use of insulin (ICD-10) Umbilical hernia ?K42.9 - Umbilical hernia without obstruction or gangrene (ICD-10) Primary hypertension ?I10 - Essential (primary) hypertension (ICD-10) Mixed hyperlipidemia ?E78.2 - Mixed hyperlipidemia (ICD-10) Narcolepsy ?G47.419 - Narcolepsy without cataplexy (ICD-10) Allergic rhinitis ?J30.9 - Allergic rhinitis, unspecified (ICD-10) Sepsis due to methicillin resistant Staphylococcus aureus (MRSA) (01/20/17) ?A41.02 - Sepsis due to Methicillin resistant Staphylococcus aureus (ICD-10) Trigger thumb of both hands ?M65.311 - Trigger thumb, right thumb (ICD-10) ?M65.312 - Trigger thumb, left thumb (ICD-10) Umbilical hernia ?K42.9 - Umbilical hernia without obstruction or gangrene (ICD-10) Venous stasis ?I87.8 - Other specified disorders of veins (ICD-10) Vitamin D deficiency ?E55.9 - Vitamin D deficiency, unspecified (ICD-10) Diabetic polyneuropathy ?E11.42 - Type 2 diabetes mellitus with diabetic polyneuropathy (ICD-10) PVD (peripheral vascular disease) ?I73.9 - Peripheral vascular disease, unspecified (ICD-10) Diabetic retinopathy ?E11.319 - Type 2 diabetes mellitus with unspecified diabetic retinopathy without macular edema (ICD-10) Erectile dysfunction ?N52.9 - Male erectile dysfunction, unspecified (ICD-10) Thrombocytopenia ?D69.6 - Thrombocytopenia, unspecified (ICD-10) Diabetic gastroparesis ?E11.43 - Type 2 diabetes mellitus with diabetic autonomic (poly)neuropathy (ICD-10) ?K31.84 - Gastroparesis (ICD-10) Surgical History (Updated 10/30/23 @ 14:09 by Sada Nicholas) History of carpal tunnel release of both wrists ?Z98.890 - Other specified postprocedural states (ICD-10) 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 ?S98.132A - Complete traumatic amputation of one left lesser toe, initial encounter (ICD-10) History of arthroscopy of right knee (1977) ?Z98.890 - Other specified postprocedural states (ICD-10) Family History (Updated 10/30/23 @ 14:09 by Sada Nicholas) Brother Colon cancer, Onset Age: 45 Prostate cancer, Onset Age: 65 Diabetes Father Heart disease, Onset Age: 48 Mother Asthma Social History (Updated 04/22/23 @ 13:05 by Stella Page ~ [facility]) Narrative: 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-smoker What is your current living situation?: I presently have a place to live Problems where you live: no known problems In the past 12 months, utilities in danger of being shut off: no In past 12 months, lack of transportation kept you from medical appts, meetings, work, or getting things needed for daily living: no In the past 12 mos, have been you worried that your food would run out before you had money to buy more?: never true In the past 12 mos, the food you bought just didn't last and you didn't have money to buy more?: never true Smoking Status: Never smoker How often do you have a drink containing alcohol: never AUDIT-C Alcohol total score: 0 Non-prescribed substance use: denies use How often does anyone, including family, friends and others, physically hurt you: never How often does anyone, including family, friends and others, insult or talk down to you: never How often does anyone, including family, friends and others, threaten you with harm: never How often does anyone, including family, friends and others, scream or curse at you: never Little interest or pleasure in doing things: not at all Feeling down, depressed, or hopeless: not at all Meds Home Medications and Allergies Home Medications ?Medication ?Instructions ?Recorded ?Confirmed ?Type albuterol sulfate 90 mcg/actuation 2 puff inhalation Q4H PRN 01/02/22 04/06/24 History aerosol inhaler tolterodine 2 mg capsule,extended 2 mg PO HS 02/06/23 04/06/24 History release 24 hr modafinil 100 mg tablet 100 mg PO BID PRN 04/14/23 04/06/24 History empagliflozin 10 mg tablet 10 mg PO DAILY 11/03/23 04/06/24 History (Jardiance) bumetanide 1 mg tablet 3 mg PO DAILY 11/04/23 04/06/24 History fluticasone propionate 50 2 spray intranasal DAILY PRN 04/06/24 04/06/24 History mcg/actuation nasal spray,suspension (Flonase Allergy Relief) hydralazine 25 mg tablet 75 mg PO BID 04/06/24 04/06/24 History insulin aspart U-100 100 unit/mL 10 - 15 unit subcut TIDWM 04/06/24 04/06/24 History (3 mL) subcutaneous pen metformin 500 mg tablet,extended 1,000 mg PO BIDWM 04/06/24 04/06/24 History release 24 hr tamsulosin 0.4 mg capsule 0.4 mg PO DAILY 04/06/24 04/06/24 History Allergies Allergy/AdvReac Type Severity Reaction Status Date / Time No Known Drug Allergies Allergy Verified 11/04/23 10:40 Exam Narrative: Exam Narrative: General: Alert and oriented, nontoxic in appearance Respiratory: Equal breath rise bilaterally, maintained on room air CV: Well perfused, irregularly irregular Abdomen: Obese abdomen, soft and nontender to palpation. Umbilical hernia with incarcerated preperitoneal fat that is easily reducible. Const: Vital Signs, click to edit/add: Vital Signs - 24 hr 04/06/24 09:59 04/06/24 10:25 04/06/24 10:44 Temperature 96.5 F L Pulse Rate [Pulse Oximeter] 108 H Respiratory Rate 20 Blood Pressure 129/79 126/73 Blood Pressure [Ri ght Upper Arm] 140/86 H Pulse Oximetry 94 Oxygen Delivery Me thod Room Air 04/06/24 10:47 04/06/24 11:01 04/06/24 11:16 Temperature Pulse Rate [Pulse Oximeter] Respiratory Rate Blood Pressure 124/65 122/59 L 124/67 Blood Pressure [Ri ght Upper Arm] Pulse Oximetry Oxygen Delivery Me thod 04/06/24 11:32 04/06/24 11:47 04/06/24 12:01 Temperature Pulse Rate [Pulse Oximeter] Respiratory Rate Blood Pressure 132/82 146/84 H 142/80 H Blood Pressure [Ri ght Upper Arm] Pulse Oximetry Oxygen Delivery Me thod 04/06/24 12:16 04/06/24 12:31 04/06/24 12:47 Temperature Pulse Rate [Pulse Oximeter] Respiratory Rate Blood Pressure 131/80 125/76 116/79 Blood Pressure [Ri ght Upper Arm] Pulse Oximetry Oxygen Delivery Me thod 04/06/24 13:01 04/06/24 13:46 04/06/24 14:01 Temperature Pulse Rate [Pulse Oximeter] Respiratory Rate Blood Pressure 119/73 122/69 119/74 Blood Pressure [Ri ght Upper Arm] Pulse Oximetry Oxygen Delivery Me thod 04/06/24 14:16 04/06/24 14:32 Temperature Pulse Rate [Pulse Oximeter] Respiratory Rate Blood Pressure 136/72 189/88 H Blood Pressure [Ri ght Upper Arm] Pulse Oximetry Oxygen Delivery Me thod Results Labs Labs: Abnormal lab results 04/06/24 04/06/24 04/06/24 Range/Units 10:16 12:18 13:16 Neut % (Auto) 87.9 H (42.0-72.0) % Lymph % (Auto) 5.8 L (20-44) % Neut # (Auto) 9.60 H (1.7-7.0) K/uL Lymph # (Auto) 0.60 L (0.90-2.90) K/uL VBG pH (7.32-7.43) Anion Gap 16 H (7-15) mEq/L BUN 60 H (7-30) mg/dL Creatinine 2.3 H (0.5-1.5) mg/dL Glucose 356 H* (60-115) mg/dL Lactate 2.5 H (0.5-1.9) mmol/L Troponin I (0.01-0.04) ng/mL POC Troponin I 0.89 H 0.71 H (0.01-0.04) ng/ml 04/06/24 Range/Units 16:12 Neut % (Auto) 87.6 H (42.0-72.0) % Lymph % (Auto) 6.0 L (20-44) % Neut # (Auto) 9.00 H (1.7-7.0) K/uL Lymph # (Auto) 0.60 L (0.90-2.90) K/uL VBG pH 7.290 L (7.32-7.43) Anion Gap (7-15) mEq/L BUN (7-30) mg/dL Creatinine (0.5-1.5) mg/dL Glucose (60-115) mg/dL Lactate 2.3 H (0.5-1.9) mmol/L Troponin I 1.01 H* (0.01-0.04) ng/mL POC Troponin I (0.01-0.04) ng/ml Diabetes panel 04/06/24 Range/Units 10:16 Sodium 139 (135-149) mmol/L Potassium 4.8 (3.6-5.1) mmol/L Chloride 102 (96-114) mmol/L Carbon Dioxide 21 (20-32) mmol/L BUN 60 H (7-30) mg/dL Creatinine 2.3 H (0.5-1.5) mg/dL Glucose 356 H* (60-115) mg/dL Calcium 9.6 (8.4-10.6) mg/dL AST 22 (12-35) U/L ALT 13 (4-50) U/L Alkaline Phosphatase 87 (40-150) U/L Total Protein 7.2 (6.0-8.3) g/dL Albumin 4.4 (3.3-5.0) g/dL Calcium panel 04/06/24 Range/Units 10:16 Calcium 9.6 (8.4-10.6) mg/dL Albumin 4.4 (3.3-5.0) g/dL Pituitary panel 04/06/24 Range/Units 10:16 Sodium 139 (135-149) mmol/L Potassium 4.8 (3.6-5.1) mmol/L Chloride 102 (96-114) mmol/L Carbon Dioxide 21 (20-32) mmol/L BUN 60 H (7-30) mg/dL Creatinine 2.3 H (0.5-1.5) mg/dL Glucose 356 H* (60-115) mg/dL Calcium 9.6 (8.4-10.6) mg/dL Adrenal panel 04/06/24 Range/Units 10:16 Sodium 139 (135-149) mmol/L Potassium 4.8 (3.6-5.1) mmol/L Chloride 102 (96-114) mmol/L Carbon Dioxide 21 (20-32) mmol/L BUN 60 H (7-30) mg/dL Creatinine 2.3 H (0.5-1.5) mg/dL Glucose 356 H* (60-115) mg/dL Calcium 9.6 (8.4-10.6) mg/dL Total Bilirubin 0.9 (0.1-1.5) mg/dL AST 22 (12-35) U/L ALT 13 (4-50) U/L Alkaline Phosphatase 87 (40-150) U/L Total Protein 7.2 (6.0-8.3) g/dL Albumin 4.4 (3.3-5.0) g/dL All other labs normal. Imaging Abdomen CT scan report/results: report reviewed and image reviewed Progress Note:A&P Assessment and plan (1) Adynamic ileus: Status: Acute Plan Patient is a 63-year-old male with a 2 day history intermittent abdominal pain, vomiting and diarrhea. Workup in the emergency department was significant for elevated troponin. This was trending down in the emergency department but slightly elevated since being admitted to the floor (0.89--0.71--1.01). Cardiology was consulted over the phone with current working diagnosis of demand ischemia. Lactate is elevated at 2.5, with patient likely being fluid down given history of persistent vomiting. A CT scan was obtained which demonstrated a distended stomach and several loops of dilated small bowel throughout the abdomen. No transition point was identified. No concern at this time for small-bowel obstruction. There was questionable pneumatosis intestinalis versus intraluminal gas seen scattered throughout the small bowel. At this time patient's abdomen is benign making necrosis of the bowel unlikely. Certainly given patient's significant comorbidities he is at risk for mesenteric ischemia, but is currently on anticoagulation with Eliquis. Since being admitted patient has received IV fluids and been made NPO. An NG tube was placed with large amount of dark maroon drainage. Abdominal pain could be secondary to gastritis or gastroenteritis. At this time would recommend continuing to resuscitate patient and monitor closely. -continue NPO, IV fluids -NG tube low intermittent suction -trend labs and abdominal exam General surgery will continue to follow, please call with any acute clinical changes, questions or concerns.
--- NOTE | 2024-04-06 18:40 | CRLHL7_ITS ---
For Patients: As a result of the Century Cures Act, medical imaging exams and procedure reports are released immediately into your electronic medical record. You may view this report before your referring provider. If you have questions, please contact your health care provider. Indication: NG PLACEMENT VERIFICATION Technique: AP view of the abdomen.. Comparison: None. Findings: Enteric tube with tip in the stomach. Mildly dilated small bowel. No large pneumoperitoneum. Visualized lung bases are clear. Impression: Enteric tube with tip in the stomach. Mildly dilated small bowel may represent small-bowel obstruction versus ileus. Dictated by Venu Castillo MD @ 04/06/2024 7:46:35 PM (Electronically Signed)
[2024-04-06 18:53] LABS: Gastric Occult Blood* POSITIVE (Negative)
[2024-04-06] MEDS: INSULIN ASPART 100 UNIT/ML SUBCUT ×2 (19:05→22:37)
--- NOTE | 2024-04-06 19:47 | P.IMHP_ITS ---
Hospitalist- H&P: HPI History of Present Illness Date Seen: 04/06/24 Chief complaint: Hard to breathe, bloating, nauseous Narrative: Magen Luu is a 63 year old male this 63-year-old male with diabetes, obesity and history of PE on Eliquis who presents with a 1 day history of abdominal pain and vomiting. He reports he was generally feeling fine yesterday. About 11 30 last night he felt chills and dyspnea. He had out of bed and went to sit in a recliner which helped with his dyspnea. He did not sleep well however and at about 3:50 a.m. this morning he had a emesis. He thought the appearance the emesis was a dark brown in color. He has had frequent, recurrent large amounts of emesis which are similar in appearance since that time. He notes that he gets abdominal pain and when he has an emesis he feels better. He has had a few small loose stools. He had 1 on arrival to the floor this afternoon and he described as light brown and watery. He has not had black or bloody stools. Reports no previous history of abdominal problems similar to this. He has not had previous abdominal surgery. He does have an umbilical hernia which is not bothering him. He had colonoscopy in April of 2018 with a recommend repeat in 5 years One year ago he had a pulmonary embolism and has been on chronic Eliquis since that time. He has stage 3 kidney disease and is followed by a explosive ordnance disposal technician for this evaluation suggests that this is due to diabetic nephropathy with nephrotic range proteinuria. Review of Systems Narrative: Patient reports doing well up until last night when he became ill prior to that he had no symptoms of illness [facility] Medical History (Updated 04/06/24 @ 20:12 by Corbin Leon MD) Paroxysmal A-fib ?I48.0 - Paroxysmal atrial fibrillation (ICD-10) Non-STEMI (non-ST elevated myocardial infarction) ?I21.4 - Non-ST elevation (NSTEMI) myocardial infarction (ICD-10) Chronic anticoagulation ?Z79.01 - long term care social worker (current) use of anticoagulants (ICD-10) Morbid obesity ?E66.01 - Morbid (severe) obesity due to excess calories (ICD-10) Hypertensive heart and chronic kidney disease stage 3 ?I13.10 - Hypertensive heart and chronic kidney disease without heart failure, with stage 1 through stage 4 chronic kidney disease, or unspecified chronic kidney disease (ICD-10) ?N18.30 - Chronic kidney disease, stage 3 unspecified (ICD-10) History of pulmonary embolism (04/16/23) ?Z86.711 - Personal history of pulmonary embolism (ICD-10) Microalbuminuria due to type 2 diabetes mellitus ?E11.29 - Type 2 diabetes mellitus with other diabetic kidney complication (ICD-10) ?R80.9 - Proteinuria, unspecified (ICD-10) GERTRUDE on CPAP ?G47.33 - Obstructive sleep apnea (adult) (pediatric) (ICD-10) ?Z99.89 - Dependence on other enabling machines and devices (ICD-10) CHEW (dyspnea on exertion) ?R06.09 - Other forms of dyspnea (ICD-10) Type 2 diabetes mellitus, with long-term current use of insulin (11/2004) ?E11.9 - Type 2 diabetes mellitus without complications (ICD-10) ?Z79.4 - half-way (current) use of insulin (ICD-10) Umbilical hernia ?K42.9 - Umbilical hernia without obstruction or gangrene (ICD-10) Primary hypertension ?I10 - Essential (primary) hypertension (ICD-10) Mixed hyperlipidemia ?E78.2 - Mixed hyperlipidemia (ICD-10) Narcolepsy ?G47.419 - Narcolepsy without cataplexy (ICD-10) Allergic rhinitis ?J30.9 - Allergic rhinitis, unspecified (ICD-10) Sepsis due to methicillin resistant Staphylococcus aureus (MRSA) (01/20/17) ?A41.02 - Sepsis due to Methicillin resistant Staphylococcus aureus (ICD-10) Trigger thumb of both hands ?M65.311 - Trigger thumb, right thumb (ICD-10) ?M65.312 - Trigger thumb, left thumb (ICD-10) Umbilical hernia ?K42.9 - Umbilical hernia without obstruction or gangrene (ICD-10) Venous stasis ?I87.8 - Other specified disorders of veins (ICD-10) Vitamin D deficiency ?E55.9 - Vitamin D deficiency, unspecified (ICD-10) Diabetic polyneuropathy ?E11.42 - Type 2 diabetes mellitus with diabetic polyneuropathy (ICD-10) PVD (peripheral vascular disease) ?I73.9 - Peripheral vascular disease, unspecified (ICD-10) Diabetic retinopathy ?E11.319 - Type 2 diabetes mellitus with unspecified diabetic retinopathy without macular edema (ICD-10) Erectile dysfunction ?N52.9 - Male erectile dysfunction, unspecified (ICD-10) Thrombocytopenia ?D69.6 - Thrombocytopenia, unspecified (ICD-10) Diabetic gastroparesis ?E11.43 - Type 2 diabetes mellitus with diabetic autonomic (poly)neuropathy (ICD-10) ?K31.84 - Gastroparesis (ICD-10) Surgical History History of carpal tunnel release of both wrists ?Z98.890 - Other specified postprocedural states (ICD-10) 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 ?S98.132A - Complete traumatic amputation of one left lesser toe, initial encounter (ICD-10) History of arthroscopy of right knee (1977) ?Z98.890 - Other specified postprocedural states (ICD-10) Family History Brother Colon cancer, Onset Age: 45 Prostate cancer, Onset Age: 65 Diabetes Father Heart disease, Onset Age: 48 Mother Asthma Social History (Updated 04/22/23 @ 13:05 by Stella Page ~ [facility]) 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-smoker What is your current living situation?: I presently have a place to live Problems where you live: no known problems Problems where you live details: none known In the past 12 months, utilities in danger of being shut off: no In past 12 months, lack of transportation kept you from medical appts, meetings, work, or getting things needed for daily living: no In the past 12 mos, have been you worried that your food would run out before you had money to buy more?: never true In the past 12 mos, the food you bought just didn't last and you didn't have money to buy more?: never true Smoking Status: Never smoker How often do you have a drink containing alcohol: 2-3 times a week How often do you have six or more drinks on one occasion: Weekly AUDIT-C Alcohol total score: 6 Non-prescribed substance use: denies use How often does anyone, including family, friends and others, physically hurt you : never How often does anyone, including family, friends and others, insult or talk down to you: never How often does anyone, including family, friends and others, threaten you with harm: never How often does anyone, including family, friends and others, scream or curse at you: never Little interest or pleasure in doing things: not at all Feeling down, depressed, or hopeless: not at all Meds Home Medications and Allergies Home Medications ?Medication ?Instructions ?Recorded ?Confirmed ?Type albuterol sulfate 90 mcg/actuation 2 puff inhalation Q4H PRN 01/02/22 04/06/24 History aerosol inhaler tolterodine 2 mg capsule,extended 2 mg PO HS 02/06/23 04/06/24 History release 24 hr modafinil 100 mg tablet 100 mg PO BID PRN 04/14/23 04/06/24 History empagliflozin 10 mg tablet 10 mg PO DAILY 11/03/23 04/06/24 History (Jardiance) bumetanide 1 mg tablet 3 mg PO DAILY 11/04/23 04/06/24 History fluticasone propionate 50 2 spray intranasal DAILY PRN 04/06/24 04/06/24 History mcg/actuation nasal spray,suspension (Flonase Allergy Relief) hydralazine 25 mg tablet 75 mg PO BID 04/06/24 04/06/24 History insulin aspart U-100 100 unit/mL 10 - 15 unit subcut TIDWM 04/06/24 04/06/24 History (3 mL) subcutaneous pen metformin 500 mg tablet,extended 1,000 mg PO BIDWM 04/06/24 04/06/24 History release 24 hr tamsulosin 0.4 mg capsule 0.4 mg PO DAILY 04/06/24 04/06/24 History Allergies Allergy/AdvReac Type Severity Reaction Status Date / Time No Known Drug Allergies Allergy Verified 11/04/23 10:40 Exam Narrative: Exam Narrative: He is alert and appears in mild discomfort. He is oriented to his circumstances and gives his own history. Eyes are normal. Oropharynx with small airway. Dry mucous membranes. Neck is supple without mass or adenopathy. Respirations are clear to auscultation. Cardiovascular: S1, S2, regular rate and rhythm. Abdomen: Bowel sounds are diminished but present. Abdomen is soft with mild diffuse tenderness. Umbilical hernia is palpated in fairly easy to reduce. External genitalia normal. Extremities with 1+ edema in both ankles. Chronic venous stasis skin changes. Diminished pedal pulses. Fairly good perfusion in all 4 extremities Const: Vital Signs, click to edit/add: Vital Signs - 24 hr 04/06/24 09:59 04/06/24 10:25 04/06/24 10:44 Temperature 96.5 F L Pulse Rate [Pulse Oximeter] 108 H Pulse Rate [Right Pulse Oximeter] Respiratory Rate 20 Blood Pressure 129/79 126/73 Blood Pressure [Ri ght Arm] Blood Pressure [Ri ght Upper Arm] 140/86 H Pulse Oximetry 94 Oxygen Delivery Me thod Room Air 04/06/24 10:47 04/06/24 11:01 04/06/24 11:16 Temperature Pulse Rate [Pulse Oximeter] Pulse Rate [Right Pulse Oximeter] Respiratory Rate Blood Pressure 124/65 122/59 L 124/67 Blood Pressure [Ri ght Arm] Blood Pressure [Ri ght Upper Arm] Pulse Oximetry Oxygen Delivery Me thod 04/06/24 11:32 04/06/24 11:47 04/06/24 12:01 Temperature Pulse Rate [Pulse Oximeter] Pulse Rate [Right Pulse Oximeter] Respiratory Rate Blood Pressure 132/82 146/84 H 142/80 H Blood Pressure [Ri ght Arm] Blood Pressure [Ri ght Upper Arm] Pulse Oximetry Oxygen Delivery Me thod 04/06/24 12:16 04/06/24 12:31 04/06/24 12:47 Temperature Pulse Rate [Pulse Oximeter] Pulse Rate [Right Pulse Oximeter] Respiratory Rate Blood Pressure 131/80 125/76 116/79 Blood Pressure [Ri ght Arm] Blood Pressure [Ri ght Upper Arm] Pulse Oximetry Oxygen Delivery Me thod 04/06/24 13:01 04/06/24 13:46 04/06/24 14:01 Temperature Pulse Rate [Pulse Oximeter] Pulse Rate [Right Pulse Oximeter] Respiratory Rate Blood Pressure 119/73 122/69 119/74 Blood Pressure [Ri ght Arm] Blood Pressure [Ri ght Upper Arm] Pulse Oximetry Oxygen Delivery Me thod 04/06/24 14:16 04/06/24 14:32 04/06/24 15:31 Temperature Pulse Rate [Pulse Oximeter] Pulse Rate [Right Pulse Oximeter] 95 Respiratory Rate 20 Blood Pressure 136/72 189/88 H Blood Pressure [Ri ght Arm] 143/90 H Blood Pressure [Ri ght Upper Arm] Pulse Oximetry 95 Oxygen Delivery Me thod Room Air 04/06/24 15:31 Temperature Pulse Rate [Pulse Oximeter] Pulse Rate [Right Pulse Oximeter] Respiratory Rate 20 Blood Pressure Blood Pressure [Ri ght Arm] Blood Pressure [Ri ght Upper Arm] Pulse Oximetry 95 Oxygen Delivery Me thod Room Air Documenting provider has reviewed patient's vital signs: yes Hospitalist - H&P: Result Labs Labs: Short CBC 04/06/24 04/06/24 Range/Units 10:16 16:12 WBC 10.96 10.27 (4.50-11.00) K/uL Hgb 16.0 14.5 (13.5-17.5) gm/dL Hct 50.4 45.7 (37.0-53.0) % Plt Count 197 163 (140-440) K/uL BMP 04/06/24 10:16 Sodium 139 Potassium 4.8 Chloride 102 Carbon Dioxide 21 BUN 60 H Creatinine 2.3 H Glucose 356 H* Calcium 9.6 Cardiac Enzymes 04/06/24 Range/Units 16:12 Troponin I 1.01 H* (0.01-0.04) ng/mL Liver Function 04/06/24 Range/Units 10:16 Total Bilirubin 0.9 (0.1-1.5) mg/dL Direct Bilirubin 0.3 (0.0-0.5) mg/dL AST 22 (12-35) U/L ALT 13 (4-50) U/L Alkaline Phosphatase 87 (40-150) U/L Albumin 4.4 (3.3-5.0) g/dL Imaging CT Chest/Ab/Pelvis: Radiologist's impression: Indication: ABD DISTENTION, SOB, N/V Technique: CT chest/abdomen/pelvis without IV contrast Comparison: CT chest on April 16, 2023 Findings: Chest: No thyroid nodules. No thoracic lymphadenopathy. The heart is within normal limits in size. No pericardial effusion. Coronary artery and aortic valve calcifications. The thoracic aorta and pulmonary artery are normal in caliber. Examination of the lungs is limited secondary to motion artifact. There are some small patchy airspace opacities in the bilateral lung bases, concerning for an acute infectious/inflammatory process. The airways are clear. Abdomen/pelvis: The liver, gallbladder and biliary system, spleen, pancreas, adrenal glands, kidneys, ureters, bladder, seminal vesicles, prostate, and visualized external genitalia are unremarkable. The stomach is severely distended. There are several loops of dilated small bowel seen throughout the abdomen measuring up to approximately 4.9 centimeters in diameter. There is no clearly delineated transition point, to suggest mechanical small bowel obstruction. Questionable pneumatosis intestinalis versus more likely intraluminal gas seen scattered throughout the small bowel. The appendix is normal. No free fluid or free air. No abdominopelvic lymphadenopathy. No abdominal aortic aneurysm. Mild calcific atherosclerosis of the aortoiliac system. Soft tissue/musculoskeletal: Small fat containing umbilical hernia, with a minimal amount of nonspecific fluid within the herniated fat. No significant fat stranding. Bilateral left greater than right fat containing inguinal hernias. No acute fracture or malalignment. Degenerative changes throughout the spine. No suspicious osseous lesions. Impression: 1. Several loops of dilated small bowel seen throughout the abdomen measuring up to approximately 4.9 centimeters in diameter without clearly delineated transition point, suggestive of adynamic ileus, although small bowel obstruction can not entirely be excluded. Recommend consultation with surgery. 2. Questionable pneumatosis intestinalis versus more likely intraluminal gas seen scattered throughout the small bowel. 3. No free fluid or free air. 4. Examination of the lungs is limited secondary to motion artifact; however, there are some small patchy airspace opacities in the bilateral lung bases, concerning for pneumonia. Please note that all CT scans at this facility use dose modulation, iterative reconstruction, and/or weight-based dosing when appropriate to reduce radiation dose to as low as reasonably achievable. Dictated by Rajat Waldron MD @ 04/06/2024 11:14:05 AM ----- ADDENDUM ----- Report was received by Dr. Farris at 11:15am on 04/06/2024. Dictated by Rajat Waldron MD @ Apr 06 2024 11:16AM (Electronically Signed) For Patients: As a result of the Century Cures Act, medical imaging exams and procedure reports are released immediately into your electronic medical record. You may view this report before your referring provider. If you have questions, please contact your health care provider. Indication: ABD DISTENTION, SOB, N/V Technique: CT chest/abdomen/pelvis without IV contrast Comparison: CT chest on April 16, 2023 Findings: Chest: No thyroid nodules. No thoracic lymphadenopathy. The heart is within normal limits in size. No pericardial effusion. Coronary artery and aortic valve calcifications. The thoracic aorta and pulmonary artery are normal in caliber. Examination of the lungs is limited secondary to motion artifact. There are some small patchy airspace opacities in the bilateral lung bases, concerning for an acute infectious/inflammatory process. The airways are clear. Abdomen/pelvis: The liver, gallbladder and biliary system, spleen, pancreas, adrenal glands, kidneys, ureters, bladder, seminal vesicles, prostate, and visualized external genitalia are unremarkable. The stomach is severely distended. There are several loops of dilated small bowel seen throughout the abdomen measuring up to approximately 4.9 centimeters in diameter. There is no clearly delineated transition point, to suggest mechanical small bowel obstruction. Questionable pneumatosis intestinalis versus more likely intraluminal gas seen scattered throughout the small bowel. The appendix is normal. No free fluid or free air. No abdominopelvic lymphadenopathy. No abdominal aortic aneurysm. Mild calcific atherosclerosis of the aortoiliac system. Soft tissue/musculoskeletal: Small fat containing umbilical hernia, with a minimal amount of nonspecific fluid within the herniated fat. No significant fat stranding. Bilateral left greater than right fat containing inguinal hernias. No acute fracture or malalignment. Degenerative changes throughout the spine. No suspicious osseous lesions. Impression: 1. Several loops of dilated small bowel seen throughout the abdomen measuring up to approximately 4.9 centimeters in diameter without clearly delineated transition point, suggestive of adynamic ileus, although small bowel obstruction can not entirely be excluded. Recommend consultation with surgery. 2. Questionable pneumatosis intestinalis versus more likely intraluminal gas seen scattered throughout the small bowel. 3. No free fluid or free air. 4. Examination of the lungs is limited secondary to motion artifact; however, there are some small patchy airspace opacities in the bilateral lung bases, concerning for pneumonia. Assessment and Plan Assessment and plan (1) Abdominal pain: Problem comment: Cause remains uncertain. Considerations include mesenteric ischemia, various kinds of enteritis, ileus. Status: Acute (2) Vomiting: Problem comment: Uncertain causes but related to abdominal pain. Status: Acute (3) Renal insufficiency: Problem comment: Stage 3 chronic kidney disease continue to monitor. Fluid resuscitation Status: Acute (4) Non-STEMI (non-ST elevated myocardial infarction): Problem comment: Monitor and trend. Supportive care and modified risk factors. Status: Acute (5) Chronic anticoagulation: Problem comment: Currently NPO. Pending possibility of surgery will hold anticoagulation tonight. If stabilizing consider resuming oral co anticoagulation verses IV heparin verses subcutaneous enoxaparin for VTE prophylaxis and paroxysmal AFib Status: Chronic (6) Morbid obesity: Status: Chronic (7) Hypertensive heart and chronic kidney disease stage 3: Status: Chronic (8) Type 2 diabetes mellitus, with long-term current use of insulin: Problem comment: While NPO will reduce basal insulin and provide sliding scale and adjust as needed Status: Chronic (9) GERTRUDE on CPAP: Problem comment: Not reliably using home CPAP Status: Chronic (10) PVD (peripheral vascular disease): Status: Chronic (11) Diabetic gastroparesis: Problem comment: Chronic diagnosis though patient reports not being aware of it Status: Acute (12) Pneumonia: Problem comment: Seen on CT scan at the base of the lungs. Monitor, Zosyn, O2 as needed Status: Acute (13) Paroxysmal A-fib: Problem comment: Has been in and out of AFib with fairly good rate control on the day of admission, 04/06/2024. Already on chronic Eliquis. Will add in IV metoprolol for rate control as well as NSTEMI Status: Acute Plan Patient is admitted to the hospital for evaluation management of abdominal pain and vomiting with non STEMI, possible pneumonia, possible mesenteric ischemia. Will need active management of other medical problems particularly in light of his NPO status. Will need to address insulin, anticoagulation, cardiovascular status with heart rate control and blood pressure control. Total Time Spent Total Time Spent: Total time spent today is 100 minutes in coordination of care discussing with patient and other providers ongoing management of multiple problems noted above
--- NOTE | 2024-04-06 19:51 | PC.NURSE ---
The patient arrived to the floor this afternoon for complaints of SOB, stomach pain and N/V. The patient is noted to be distended upon arrival and appears quite uncomfortable. 1 emesis episode upon arrival to the floor as well as diarrhea. Emesis was noted to dark and foul smelling. Gastrooccult was collected. Initially the patient was reluctant to recommendations to insert NG tube @ 68cm... draining brown gastric content. The patient reports no relief after insertion. N/S bolus is running.... NPO but per Dr Payton 1/ c ice chips is ok q8. Trops are elevated... tele is in place NSR initially but then Afib at one point Dr Leon was notified, athough sustaining under 100bpm. Up SBA w/ NG. Call light within reach. Constance WEISS BSN
[2024-04-06] MEDS: 0.9 % SODIUM CHLORIDE 1000 ml 1,000 ML 150 ML IV (20:07)
[2024-04-06] MEDS: METOPROLOL TARTRATE 1 MG/ML inj 5 MG IVP (20:19)
[2024-04-06] MEDS: SODIUM CHLORIDE 0.9 % (FLUSH) 10 ML SYRINGE 5 ML IVF (20:24)
[2024-04-06] MEDS: BENZOCAINE/MENTHOL 1 EACH LOZENGE MUCOUS MEM (20:52)
[2024-04-06] MEDS: INSULIN GLARGINE,HUM.REC.ANLOG 100 UNIT/ML INSULN.PEN 10 UNIT SUBCUT (21:39)
[2024-04-06] MEDS: 0.9 % SODIUM CHLORIDE 1000 ml 1,000 ML 200 ML IV (23:46)
[2024-04-07] VITALS (9 sets, daily range): BP systolic 141–180; BP diastolic 82–101; PULSE 72–90; RESP 18–20; TEMP 36.2–37; O2SAT 91–96; BMI 41.5
[2024-04-07] MEDS: METOPROLOL TARTRATE 1 MG/ML inj 5 MG IVP ×6 (00:31→19:39)
[2024-04-07] MEDS: 0.9 % SODIUM CHLORIDE 1000 ml 1,000 ML 200 ML IV ×4 (02:40→19:40)
[2024-04-07] MEDS: INSULIN ASPART 100 UNIT/ML SUBCUT ×3 (03:26→15:04)
[2024-04-07] MEDS: PIPERACILLIN/TAZOBACTAM 3.375 GM in 0.9 % SODIUM CHLORIDE Mini-bag 100 ML IVPB ×4 (03:45→21:42)
[2024-04-07] MEDS: BENZOCAINE/MENTHOL 1 EACH LOZENGE MUCOUS MEM (03:47)
[2024-04-07] MEDS: ONDANSETRON 2 MG/ML inj 4 MG IVP (06:15)
[2024-04-07 06:23] LABS: HCO3 VBG 24 mmol/L (21-28); Lactate* 1.2 mmol/L (0.5-1.9); PCO2 VBG 53 mmHG (40-50); PO2 VBG 30.4 mmHG (25-47)
[2024-04-07 06:24] LABS: Basophils Absolute Auto 0.01 K/uL (0.00-0.30); Basophils Percent Auto 0.1 % (0.0-3.0); Hematocrit 39.8 % (37.0-53.0); Hemoglobin* 12.5 gm/dL (13.5-17.5); Immature Granulocytes Abs Auto 0.01 K/uL (0.00-0.30); Immature Granulocytes Pct Auto 0.1 %; Mean Corpuscular HGB Conc 31 gm/dL (32-36); Mean Corpuscular Hemoglobin 30 pg (26-34); Mean Corpuscular Volume 96 fL (80-100); Monocytes Percent Auto 5.7 % (0.0-11.0); Neutrophils Percent Auto 86.1 % (42.0-72.0); Platelet Count* 139 K/uL (140-440); RDW Coefficient of Variation % 15.6 % (11.5-15.5); Red Blood Count 4.13 m/uL (4.30-5.90); White Blood Count* 7.87 K/uL (4.50-11.00)
[2024-04-07 06:28] LABS: Slide Review Reflex No
[2024-04-07 06:44] LABS: Chloride* 108 mmol/L (96-114); Potassium* 5.6 mmol/L (3.6-5.1); Sodium* 138 mmol/L (135-149)
[2024-04-07 06:46] LABS: Creatinine* 2.7 mg/dL (0.5-1.5); Est. Creatinine Clearance* 29.83; Estimated Glomerular Filt Rate 26 ml/min
[2024-04-07 06:47] LABS: Anion Gap 8 mEq/L (7-15); Blood Urea Nitrogen* 70 mg/dL (7-30); Calcium* 7.9 mg/dL (8.4-10.6); Carbon Dioxide* 22 mmol/L (20-32); Glucose* 267 mg/dL (60-115); Magnesium* 2.1 mg/dL (1.5-2.6)
[2024-04-07 07:07] LABS: Troponin I* 0.54 ng/mL (0.01-0.04)
--- NOTE | 2024-04-07 07:33 | PC.NURSE ---
End of shift note [id number]: Pt alert & oriented x 4. He is transferring/ambulating with SBA and has been continent of bladder using toilet. NG tube in place at 66 cm connected to LIS. Scheduled Metoprolol administered for heart rate control. Pt has been denying pain when asked with no vomiting noted this shift. Dry mouth treated with PRN lozenges as pt only allowed to have ? cup of ice chips Q8H per MD. IV in place to L AC with NS running per order. Call light within reach. Blood glucose values of 315 and 247 this shift. PRN Zofran given this morning as pt reported ?dry heaves? though no vomiting. Pt refused to remove pants overnight and refused gripper socks and DOROTEO stockings despite education. Pt continent of bladder this shift. No BM- Bowel sounds to LLQ noted to be hypoactive. Abdomen noted to be large and distended upon assessment with no flatus noted this shift. Pt on tele with NSR to BBB. CIWA score of 1 at highest this shift d/t c/o mild nausea. Pt remains on NPO diet. NG output noted to be mostly dark brown in color with blood-tinged output noted in NG tubing last evening. This administrative underwriter updated MD Leon of findings. Pt has been using call light appropriately.
[2024-04-07] MEDS: PANTOPRAZOLE SODIUM 40 MG INJ IVP (08:10)
[2024-04-07] MEDS: 0.9 % SODIUM CHLORIDE 500 ML 500 ML IV (08:44)
[2024-04-07 09:21] LABS: Troponin I* 1.19 ng/mL (0.01-0.04)
[2024-04-07] MEDS: THIAMINE 250 MG in 0.9 % SODIUM CHLORIDE 100 ml 100 ML 102.5 MG IVPB (10:00)
[2024-04-07] MEDS: INSULIN GLARGINE,HUM.REC.ANLOG 100 UNIT/ML INSULN.PEN 10 UNIT SUBCUT ×2 (10:20→21:41)
[2024-04-07] MEDS: PERFLUTREN LIPID MICROSPHERES 2 ML VIAL IVP (12:03)
[2024-04-07 12:11] LABS: HCO3 VBG 23 mmol/L (21-28); Lactate* 1.6 mmol/L (0.5-1.9); PCO2 VBG 51 mmHG (40-50); PO2 VBG < 30.1 mmHG (25-47); pH VBG 7.252 (7.32-7.43)
[2024-04-07 12:15] LABS: Hematocrit 39.1 % (37.0-53.0); Hemoglobin* 12.2 gm/dL (13.5-17.5); Mean Corpuscular HGB Conc 31 gm/dL (32-36); Mean Corpuscular Hemoglobin 30 pg (26-34); Mean Corpuscular Volume 97 fL (80-100); Platelet Count* 112 K/uL (140-440); Red Blood Count 4.02 m/uL (4.30-5.90); White Blood Count* 6.32 K/uL (4.50-11.00)
[2024-04-07 12:18] LABS: Slide Review Reflex No
[2024-04-07 12:30] LABS: Albumin* 3.3 g/dL (3.3-5.0); Chloride* 110 mmol/L (96-114); Potassium* 4.6 mmol/L (3.6-5.1); Sodium* 140 mmol/L (135-149)
[2024-04-07 12:33] LABS: Anion Gap 8 mEq/L (7-15); Blood Urea Nitrogen* 64 mg/dL (7-30); Carbon Dioxide* 22 mmol/L (20-32); Creatinine* 2.5 mg/dL (0.5-1.5); Est. Creatinine Clearance* 32.21; Estimated Glomerular Filt Rate 28 ml/min; Glucose* 232 mg/dL (60-115)
[2024-04-07 12:34] LABS: Phosphorus* 4.8 mg/dL (2.5-4.5)
[2024-04-07 12:50] LABS: Troponin I* 0.42 ng/mL (0.01-0.04)
--- NOTE | 2024-04-07 13:26 | P.IMPN_ITS ---
Progress Note: A&P Assessment and plan (1) Abdominal pain: Problem details: - Cause remains uncertain. Considerations include mesenteric ischemia, various kinds of enteritis, ileus. - 04/07/2024: Patient indicates subjective improvement of about 50% from yesterday Status: Acute (2) Vomiting: Problem details: - Uncertain causes but related to abdominal pain. - 04/07/2024: No further vomiting since NG tube placement. Still has moderate to high volume NG tube output. Status: Acute (3) Renal insufficiency: Problem details: Stage 3 chronic kidney disease continue to monitor. Fluid resuscitation - 04/07/2024: Potassium 5.6, creatinine 2.7, BUN 70. Continue with IV fluid resuscitation efforts. Continue to monitor while in hospital Status: Acute (4) Non-STEMI (non-ST elevated myocardial infarction): Problem details: - Monitor and trend. Supportive care and modified risk factors. Prop Sawyer suggest most likely this is demand ischemia, type 2 myocardial infarction. - no apparent symptoms. Trope I gradually declining. Status: Acute (5) Chronic anticoagulation: Problem details: Currently NPO. Pending possibility of surgery will hold anticoagulation tonight. If stabilizing consider resuming oral co anticoagulation verses IV heparin verses subcutaneous enoxaparin for VTE prophylaxis and paroxysmal AFib - 04/07/2024: Restart apixaban 5 mg twice daily Status: Chronic (6) Morbid obesity: Status: Chronic (7) Hypertensive heart and chronic kidney disease stage 3: Status: Chronic (8) Type 2 diabetes mellitus, with long-term current use of insulin: Problem details: While NPO will reduce basal insulin and provide sliding scale and adjust as needed Status: Chronic (9) GERTRUDE on CPAP: Problem details: Not reliably using home CPAP Status: Chronic (10) PVD (peripheral vascular disease): Status: Chronic (11) Diabetic gastroparesis: Problem details: Chronic diagnosis though patient reports not being aware of it Status: Acute (12) Pneumonia: Problem details: Seen on CT scan at the base of the lungs. Monitor, Zosyn, O2 as needed Status: Acute (13) Paroxysmal A-fib: Problem details: Has been in and out of AFib with fairly good rate control on the day of admission, 04/06/2024. Already on chronic Eliquis. Will add in IV metoprolol for rate control as well as NSTEMI Status: Acute Plan 1. Reviewed impression with Dr. Irais Payton, general surgeon. Will continue with current level of support for now. Continue with NPO status except for ice chips for now. Encourage increased activity. [facility] PT and OT to assess and assist. Reviewed with patient and were agreeable. Time Spent With Patient Total time spent: 40 minutes Subjective Date Seen: 04/07/24 Interval history: Admission history of present illness: ?Magen Luu is a 63 year old male this 63-year-old male with diabetes, obesity and history of PE on Eliquis who presents with a 1 day history of abdominal pain and vomiting. He reports he was generally feeling fine yesterday. About 11 30 last night he felt chills and dyspnea. He had out of bed and went to sit in a recliner which helped with his dyspnea. He did not sleep well however and at about 3:50 a.m. this morning he had a emesis. He thought the appearance the emesis was a dark brown in color. He has had frequent, recurrent large amounts of emesis which are similar in appearance since that time. He notes that he gets abdominal pain and when he has an emesis he feels better. He has had a few small loose stools. He had 1 on arrival to the floor this afternoon and he described as light brown and watery. He has not had black or bloody stools. ?Reports no previous history of abdominal problems similar to this. He has not had previous abdominal surgery. He does have an umbilical hernia which is not bothering him. He had colonoscopy in April of 2018 with a recommend repeat in 5 years ?One year ago he had a pulmonary embolism and has been on chronic Eliquis since that time. He has stage 3 kidney disease and is followed by a direct customer service representative for this evaluation suggests that this is due to diabetic nephropathy with nephrotic range proteinuria.? Hospital day 2. He tells me he generally feels improved. Dyspnea that he was having on presentation is subsided. Abdominal bloating and discomfort is improved. Only passing minimal flatus. Has passed no stool. Still has nausea but much improved from previously. No longer having vomiting episodes. Still has NG tub e in place. At a little over 700 mL of NG tube suction at yesterday. Today has already had over 400 mL. Complains of dry mouth that is in part improved with sucking on ice chips. Denies any chest heaviness, pressure, tightness, or pain. Denies syncope or near-syncope. Denies orthostasis. Denies palpitations or chest fluttering. Denies blood loss of any sort. Denies fever, rigors, diaphoresis. Patient and indicate that he was doing well up until this weekend. This past weekend he attended his daughter's small wetting [place], [place], along the [facility]. He was doing well up until the onset of this yesterday. Notes that his new son-in-law now also has similar symptoms. volunteers that since the patient retired about 1 year ago, he has been much less physically active and spends much of the day sitting in a chair while at home. Patient and deny depression symptoms. Patient states concern about pulmonary emboli and increased work of breathing. Is anticoagulated ordinarily for this. Exam Narrative: Exam Narrative: I examined the patient in his hospital room. He is sitting in the recliner chair at his bedside. Appears comfortable and in no acute distress. NG tube in place with active NG tube output. About 700 mL output yesterday, so far today there is a recording of about 400 mL output. Vision and hearing are adequate. Alert and oriented to self, place, time, situation. Friendly and cooperative. No JVD or hepatojugular reflux. Lungs with fine end inspiratory crackles otherwise clear to auscultation without wheezing, rhonchi. No CVA tenderness to thumping. Heart tones with regular rhythm, normal S1-S2. Abdomen with occasional bowel sounds, soft, without rebound or guarding. Still has hypertympany of the epigastrium. Extremities without edema. No focal motor neurologic deficits. Skin is dry and intact. No icterus, jaundice, cyanosis, rashes, petechiae. Const: Vital Signs, click to edit/add: Vital Signs - 24 hr 04/06/24 13:46 04/06/24 13:50 04/06/24 14:01 Temperature Pulse Rate 83 Pulse Rate [Right Pulse Oximeter] Respiratory Rate Blood Pressure 122/69 119/74 Blood Pressure [Ri ght Arm] Pulse Oximetry Oxygen Delivery Me thod 04/06/24 14:16 04/06/24 14:32 04/06/24 15:31 Temperature Pulse Rate Pulse Rate [Right Pulse Oximeter] 95 Respiratory Rate 20 Blood Pressure 136/72 189/88 H Blood Pressure [Ri ght Arm] 143/90 H Pulse Oximetry 95 Oxygen Delivery Me thod Room Air 04/06/24 15:31 04/06/24 20:01 04/06/24 20:01 Temperature 98.1 F 98.1 F Pulse Rate Pulse Rate [Right Pulse Oximeter] 92 92 Respiratory Rate 20 20 20 Blood Pressure Blood Pressure [Ri ght Arm] 147/75 H 147/75 H Pulse Oximetry 95 92 92 Oxygen Delivery Me thod Room Air Room Air Room Air 04/06/24 22:45 04/06/24 23:00 04/07/24 00:31 Temperature 98.6 F Pulse Rate 79 Pulse Rate [Right Pulse Oximeter] 90 90 Respiratory Rate 20 20 Blood Pressure Blood Pressure [Ri ght Arm] 141/89 H Pulse Oximetry 91 Oxygen Delivery Me thod Room Air 04/07/24 03:35 04/07/24 07:30 04/07/24 07:30 Temperature 98.4 F Pulse Rate 78 Pulse Rate [Right Pulse Oximeter] 79 77 Respiratory Rate 18 20 Blood Pressure Blood Pressure [Ri ght Arm] 158/82 H Pulse Oximetry 92 Oxygen Delivery Me thod Room Air 04/07/24 08:11 Temperature 97.6 F Pulse Rate Pulse Rate [Right Pulse Oximeter] 77 Respiratory Rate 20 Blood Pressure Blood Pressure [Ri ght Arm] 172/94 H Pulse Oximetry 95 Oxygen Delivery Me thod Room Air Labs Labs: Laboratory Results - last 24 hr 04/06/24 04/06/24 04/06/24 10:16 13:16 16:12 WBC 10.27 RBC 4.80 Hgb 14.5 Hct 45.7 MCV 95 MCH 30 MCHC 32 RDW Coeff of Bill 15.4 Plt Count 163 Neut % (Auto) 87.6 H Lymph % (Auto) 6.0 L [place] % (Auto) 6.2 Eos % (Auto) 0.0 Baso % (Auto) 0.1 Neut # (Auto) 9.00 H Lymph # (Auto) 0.60 L [place] # (Auto) 0.60 Eos # (Auto) 0.00 Baso # (Auto) 0.01 Abs Immat Gran (auto) 0.01 Imm/Tot Granulo (auto) 0.1 VBG pH 7.290 L VBG pCO2 43 VBG pO2 36.5 VBG HCO3 21 Sodium 139 Potassium 4.8 Chloride 102 Carbon Dioxide 21 Anion Gap 16 H BUN 60 H Creatinine 2.3 H Estimated Creat Clear 36.08 Estimated GFR 31 Glucose 356 H* Lactate 2.5 H 2.3 H Calcium 9.6 Phosphorus Magnesium 2.0 Total Bilirubin 0.9 Direct Bilirubin 0.3 AST 22 ALT 13 Alkaline Phosphatase 87 Troponin I 1.19 H* 1.01 H* Total Protein 7.2 Albumin 4.4 Lipase 258 Gastric Fluid pH Gastric Occult Blood Lab Acknowledgement 04/06/24 04/07/24 04/07/24 18:44 05:57 08:44 WBC 7.87 RBC 4.13 L Hgb 12.5 L Hct 39.8 MCV 96 MCH 30 MCHC 31 L RDW Coeff of Bill 15.6 H Plt Count 139 L Neut % (Auto) 86.1 H Lymph % (Auto) 8.0 L [place] % (Auto) 5.7 Eos % (Auto) 0.0 Baso % (Auto) 0.1 Neut # (Auto) 6.80 Lymph # (Auto) 0.60 L [place] # (Auto) 0.40 Eos # (Auto) 0.00 Baso # (Auto) 0.01 Abs Immat Gran (auto) 0.01 Imm/Tot Granulo (auto) 0.1 VBG pH 7.260 L VBG pCO2 53 H VBG pO2 30.4 VBG HCO3 24 Sodium 138 Potassium 5.6 H Chloride 108 Carbon Dioxide 22 Anion Gap 8 BUN 70 H Creatinine 2.7 H Estimated Creat Clear 29.83 Estimated GFR 26 Glucose 267 H Lactate 1.2 Calcium 7.9 L Phosphorus Magnesium 2.1 Total Bilirubin Direct Bilirubin AST ALT Alkaline Phosphatase Troponin I 0.54 H* Total Protein Albumin Lipase Gastric Fluid pH 3.0 Gastric Occult Blood POSITIVE A Lab Acknowledgement Test Added 04/07/24 12:00 WBC 6.32 RBC 4.02 L Hgb 12.2 L Hct 39.1 MCV 97 MCH 30 MCHC 31 L RDW Coeff of Bill Plt Count 112 L Neut % (Auto) Lymph % (Auto) [place] % (Auto) Eos % (Auto) Baso % (Auto) Neut # (Auto) Lymph # (Auto) [place] # (Auto) Eos # (Auto) Baso # (Auto) Abs Immat Gran (auto) Imm/Tot Granulo (auto) VBG pH 7.252 L VBG pCO2 51 H VBG pO2 < 30.1 VBG HCO3 23 Sodium 140 Potassium 4.6 Chloride 110 Carbon Dioxide 22 Anion Gap 8 BUN 64 H Creatinine 2.5 H Estimated Creat Clear 32.21 Estimated GFR 28 Glucose 232 H Lactate 1.6 Calcium 8.0 L Phosphorus 4.8 H Magnesium Total Bilirubin Direct Bilirubin AST ALT Alkaline Phosphatase Troponin I 0.42 H* Total Protein Albumin 3.3 Lipase Gastric Fluid pH Gastric Occult Blood Lab Acknowledgement
--- NOTE | 2024-04-07 16:52 | PM.GSPN ---
Subjective Subjective Date Seen: 04/07/24 Interval history: Patient feels better this morning. He denies any current abdominal pain. He feels like his belly is back to where it normally is. He last passed gas yesterday evening. Denies any current nausea. He does not like the NG tube in place. He has not yet gotten up and walked the halls. No fevers overnight. Exam Narrative: Exam Narrative: General: Alert and oriented, no acute distress. Sitting comfortably in a chair Abdomen: Soft, nontender and nondistended HEENT: NG tube in place maroon and dark bilious tinged output. 1 L in the canister Const: Vital Signs, click to edit/add: Vital Signs - 24 hr 04/06/24 20:01 04/06/24 20:01 04/06/24 22:45 Temperature 98.1 F 98.1 F Pulse Rate 79 Pulse Rate [Right Pulse Oximeter] 92 92 Respiratory Rate 20 20 Blood Pressure [Ri ght Arm] 147/75 H 147/75 H Pulse Oximetry 92 92 Oxygen Delivery Me thod Room Air Room Air 04/06/24 23:00 04/07/24 00:31 04/07/24 03:35 Temperature 98.6 F 98.4 F Pulse Rate Pulse Rate [Right Pulse Oximeter] 90 90 79 Respiratory Rate 20 20 18 Blood Pressure [Ri ght Arm] 141/89 H 158/82 H Pulse Oximetry 91 92 Oxygen Delivery Me thod Room Air Room Air 04/07/24 07:30 04/07/24 07:30 04/07/24 08:11 Temperature 97.6 F Pulse Rate 78 Pulse Rate [Right Pulse Oximeter] 77 77 Respiratory Rate 20 20 Blood Pressure [Ri ght Arm] 172/94 H Pulse Oximetry 95 Oxygen Delivery Me thod Room Air Labs/Imaging Labs Labs: Lactate has normalized, no leukocytosis. Imaging Imaging: No new imaging overnight Progress Note:A&P Assessment and plan (1) Abdominal pain: Status: Acute Assessment and Plan: Patient is a 63-year-old male with abdominal pain, nausea and vomiting. Low concern for mesenteric ischemia with patient having a benign abdomen and normalization of his lactic acid. A bowel obstruction vs dynamic ileus is still in the differential with patient having NG tube in place and large amount of output. His symptoms could also be associated with a gastroenteritis, but patient not currently passing gas and no reported diarrhea. Recommend continued conservative management at this time. -Continue n.p.o., IV fluids -NG tube low intermittent suction, will continue to monitor output -Patient encouraged to start ambulating -Could consider upper endoscopy at some point given maroon color to NG tube output and Gastroccult positive, no urgent indication at this time. Recommend continuing with omeprazole 40 mg IV daily.
--- NOTE | 2024-04-07 19:28 | PC.NURSE ---
Pt denies pain, nausea, and flatus. Need encouragement with ambulation. NG @[facility].
[2024-04-07] MEDS: APIXABAN 5 MG TABLET PO (21:42)
[2024-04-08 00:05] VITALS: BP 193/106; PULSE 81; RESP 22; O2SAT 93
[2024-04-08] MEDS: ONDANSETRON 2 MG/ML inj 4 MG IVP (00:14)
[2024-04-08] MEDS: METOPROLOL TARTRATE 1 MG/ML inj 5 MG IVP ×6 (00:14→20:15)
[2024-04-08] MEDS: 0.9 % SODIUM CHLORIDE 1000 ml 1,000 ML 200 ML IV ×2 (01:58→06:33)
[2024-04-08 03:00] VITALS: BP 177/105; PULSE 79; RESP 20; TEMP 37.1; O2SAT 93
[2024-04-08] MEDS: PIPERACILLIN/TAZOBACTAM 3.375 GM in 0.9 % SODIUM CHLORIDE Mini-bag 100 ML IVPB ×4 (03:52→23:00)
--- NOTE | 2024-04-08 06:16 | PC.NURSE ---
Shift note: No c/o pain, nausea in PM, treated per eMAR with relief. Flat affect, needs encouragement to ambulate, went for about 100 feet walk in HS. He ambulates to the BR, voiding, stated he is passing gas, bowel sounds hypoactive.
[2024-04-08 07:00] VITALS: BP 198/111; PULSE 73; PULSE 77; RESP 18; TEMP 37.1; O2SAT 95
[2024-04-08 08:34] LABS: Hemoglobin* 11.7 gm/dL (13.5-17.5); Mean Corpuscular HGB Conc 31 gm/dL (32-36); Mean Corpuscular Hemoglobin 30 pg (26-34); Mean Corpuscular Volume 98 fL (80-100); Platelet Count* 123 K/uL (140-440); Red Blood Count 3.88 m/uL (4.30-5.90)
[2024-04-08 08:41] LABS: Slide Review Reflex No
[2024-04-08] MEDS: carvediloL 25 MG TABLET 50 MG PO ×2 (08:45→20:16)
[2024-04-08] MEDS: PANTOPRAZOLE SODIUM 40 MG INJ IVP (08:45)
[2024-04-08] MEDS: APIXABAN 5 MG TABLET PO ×2 (08:45→20:16)
[2024-04-08] MEDS: TAMSULOSIN HCL 0.4 MG CAPSULE PO (08:45)
[2024-04-08] MEDS: SODIUM CHLORIDE 0.9 % (FLUSH) 10 ML SYRINGE 5 ML IVF (08:46)
[2024-04-08] MEDS: INSULIN GLARGINE,HUM.REC.ANLOG 100 UNIT/ML INSULN.PEN 10 UNIT SUBCUT ×2 (09:01→20:16)
[2024-04-08] MEDS: BUMETANIDE 1 MG TABLET 3 MG PO (09:07)
[2024-04-08 09:09] LABS: Albumin* 3.2 g/dL (3.3-5.0); Chloride* 117 mmol/L (96-114); Potassium* 4.7 mmol/L (3.6-5.1); Sodium* 144 mmol/L (135-149)
[2024-04-08 09:12] LABS: Anion Gap 7 mEq/L (7-15); Carbon Dioxide* 20 mmol/L (20-32); Creatinine* 2.1 mg/dL (0.5-1.5); Est. Creatinine Clearance* 38.35; Estimated Glomerular Filt Rate 35 ml/min
[2024-04-08 09:13] LABS: Blood Urea Nitrogen* 50 mg/dL (7-30); Glucose* 165 mg/dL (60-115); Phosphorus* 4.3 mg/dL (2.5-4.5)
[2024-04-08 09:45] LABS: Lactate* 0.9 mmol/L (0.5-1.9)
[2024-04-08 11:00] VITALS: BP 181/99; PULSE 75; RESP 18; TEMP 37.1; O2SAT 95
--- NOTE | 2024-04-08 11:30 | PM.GSPN ---
Subjective Subjective Date Seen: 04/08/24 Interval history: Patient doing okay this morning. He did get up and walk the halls twice yesterday. Denies any current nausea or abdominal pain. His NG tube was clamped earlier this morning. He has been passing gas, no bowel movement since admission. Exam Narrative: Exam Narrative: General: Alert and oriented, no acute distress. Flat affect Abdomen: Obese abdomen, soft and nontender, and nondistended. HEENT: NG tube in place and clamped Const: Vital Signs, click to edit/add: Vital Signs - 24 hr 04/07/24 15:00 04/07/24 15:00 04/07/24 19:00 Temperature 97.2 F L 97.4 F L Pulse Rate 79 Pulse Rate [Right Pulse Oximeter] 72 78 Respiratory Rate 20 20 Blood Pressure [Ri ght Arm] 176/101 H 180/99 H Pulse Oximetry 95 95 Oxygen Delivery Me thod Room Air Room Air 04/07/24 23:00 04/07/24 23:00 04/08/24 00:05 Temperature Pulse Rate 78 Pulse Rate [Right Pulse Oximeter] 81 81 Respiratory Rate 20 22 Blood Pressure [Ri ght Arm] 193/106 H Pulse Oximetry 93 Oxygen Delivery Me thod Room Air 04/08/24 03:00 04/08/24 07:00 04/08/24 07:00 Temperature 98.8 F 98.8 F Pulse Rate Pulse Rate [Right Pulse Oximeter] 79 77 77 Respiratory Rate 20 18 18 Blood Pressure [Ri ght Arm] 177/105 H 198/111 H Pulse Oximetry 93 95 Oxygen Delivery Me thod Room Air Room Air 04/08/24 07:00 Temperature Pulse Rate 73 Pulse Rate [Right Pulse Oximeter] Respiratory Rate Blood Pressure [Ri ght Arm] Pulse Oximetry Oxygen Delivery Me thod Labs/Imaging Labs Labs: No leukocytosis. BMP reviewed, creatinine remains stable. Imaging Imaging: No new imaging. Progress Note:A&P Assessment and plan (1) Abdominal pain: Status: Acute Assessment and Plan: Patient is a 63-year-old male with abdominal pain, nausea and vomiting. Etiology likely secondary to gastroenteritis. NG tube was clamped this morning, will plan for clamping trial today and possible removal this afternoon. Output in canister bile tinged, no evidence of blood. He does have a history of gastroparesis and was restarted on his Reglan. He has continued to pass gas, no bowel movement. Patient was encouraged to ambulate the hallway today.
--- NOTE | 2024-04-08 13:11 | PM.IMPN1 ---
Progress Note: A&P Assessment and plan (1) Abdominal pain: Problem details: - Cause remains uncertain. Considerations include mesenteric ischemia, various kinds of enteritis, ileus. Possibly multifactorial from underlying diabetic gastroparesis plus another process such as a gastroenteritis. - 04/08/2024: Patient indicates subjective improvement of 60% compared to admission Status: Acute (2) Vomiting: Problem details: - Uncertain cause but related to abdominal pain. - 04/08/2024: No further vomiting since NG tube placement. Still has moderate volume NG tube output. NG tube clamped. Will monitor. Status: Acute (3) Demand ischemia of myocardium: Problem details: - Monitor and trend. Supportive care and modified risk factors. Supervisor Core Drilling suggest most likely this is demand ischemia, type 2 myocardial infarction. - no apparent symptoms. Trope I gradually declining. Status: Acute (4) Pneumonia: Problem details: Seen on CT scan at the base of the lungs. Monitor, Zosyn, O2 as needed Status: Acute (5) Paroxysmal A-fib: Problem details: - Has been in and out of AFib with fairly good rate control on the day of admission, 04/06/2024. Already on chronic Eliquis. Will add in IV metoprolol for rate control as well as NSTEMI - restart various antihypertensive medications Status: Acute (6) Renal insufficiency: Problem details: - Stage 3 chronic kidney disease continue to monitor. Fluid resuscitation - 04/08/2024: Creatinine 2.1, BUN 60. Decrease IV fluid rate. Status: Acute (7) Adynamic ileus: Status: Acute (8) History of pulmonary embolism: Problem details: - Unprovoked 04/16/23. Continue with apixaban. Status: Acute (9) Morbid obesity: Status: Chronic (10) Type 2 diabetes mellitus, with long-term current use of insulin: Problem details: While NPO will reduce basal insulin and provide sliding scale and adjust as needed Status: Chronic (11) Diabetic gastroparesis: Problem details: Chronic diagnosis though patient reports not being aware of it Status: Acute (12) Narcolepsy: Status: Chronic (13) GERTRUDE on CPAP: Problem details: Not reliably using home CPAP Status: Chronic (14) Venous stasis: Status: Chronic (15) PVD (peripheral vascular disease): Status: Chronic (16) Chronic anticoagulation: Problem details: - 04/07/2024: Restart apixaban 5 mg twice daily Status: Chronic Plan 1. Reviewed impression with patient and his 2. Reviewed impression and plan with his general surgeon, Dr. Payton 3. Proceed as outlined above 4. Patient and his are agreeable Time Spent With Patient Total time spent: 35 minutes Subjective Date Seen: 04/08/24 Interval history: Admission history of present illness: ?Magen Luu is a 63 year old male this 63-year-old male with diabetes, obesity and history of PE on Eliquis who presents with a 1 day history of abdominal pain and vomiting. He reports he was generally feeling fine yesterday. About 11 30 last night he felt chills and dyspnea. He had out of bed and went to sit in a recliner which helped with his dyspnea. He did not sleep well however and at about 3:50 a.m. this morning he had a emesis. He thought the appearance the emesis was a dark brown in color. He has had frequent, recurrent large amounts of emesis which are similar in appearance since that time. He notes that he gets abdominal pain and when he has an emesis he feels better. He has had a few small loose stools. He had 1 on arrival to the floor this afternoon and he described as light brown and watery. He has not had black or bloody stools. ?Reports no previous history of abdominal problems similar to this. He has not had previous abdominal surgery. He does have an umbilical hernia which is not bothering him. He had colonoscopy in April of 2018 with a recommend repeat in 5 years ?One year ago he had a pulmonary embolism and has been on chronic Eliquis since that time. He has stage 3 kidney disease and is followed by a game programer for this evaluation suggests that this is due to diabetic nephropathy with nephrotic range proteinuria.? Hospital day 3. NG tube output has decreased only modestly. Continues to pass flatus only and has had no stool. States nausea however is much improved now compared to previously. Tolerating increased activities. Denies any chest heaviness, pressure, tightness, or pain. Denies syncope or near-syncope. Denies orthostasis. Denies palpitations or chest fluttering. Denies blood loss of any sort. Denies fever, rigors, diaphoresis. Exam Narrative: Exam Narrative: I examine him in his hospital room. Appears comfortable and in no acute distress. Awake, alert, and oriented times 4. Friendly and cooperative. Full neck. Neck is supple. Fine end inspiratory crackles both bases otherwise lungs are clear without wheezing, rhonchi, or rales. Heart tones with regular rhythm, normal S1-S2. Abdomen is protuberant. Few scattered bowel sounds. No borborygmi. Soft and nontender. Trace edema pretibially bilaterally only. Skin is dry and intact. No focal motor neurologic deficits. Const: Vital Signs, click to edit/add: Vital Signs - 24 hr 04/07/24 15:00 04/07/24 15:00 04/07/24 19:00 Temperature 97.2 F L 97.4 F L Pulse Rate 79 Pulse Rate [Right Pulse Oximeter] 72 78 Respiratory Rate 20 20 Blood Pressure [Ri ght Arm] 176/101 H 180/99 H Pulse Oximetry 95 95 Oxygen Delivery Me thod Room Air Room Air 04/07/24 23:00 04/07/24 23:00 04/08/24 00:05 Temperature Pulse Rate 78 Pulse Rate [Right Pulse Oximeter] 81 81 Respiratory Rate 20 22 Blood Pressure [Ri ght Arm] 193/106 H Pulse Oximetry 93 Oxygen Delivery Me thod Room Air 04/08/24 03:00 04/08/24 07:00 04/08/24 07:00 Temperature 98.8 F 98.8 F Pulse Rate Pulse Rate [Right Pulse Oximeter] 79 77 77 Respiratory Rate 20 18 18 Blood Pressure [Ri ght Arm] 177/105 H 198/111 H Pulse Oximetry 93 95 Oxygen Delivery Ms thod Room Air Room Air 04/08/24 07:00 Temperature Pulse Rate 73 Pulse Rate [Right Pulse Oximeter] Respiratory Rate Blood Pressure [Ri ght Arm] Pulse Oximetry Oxygen Delivery Me thod Labs Labs: Laboratory Results - last 24 hr 04/08/24 04/08/24 08:17 09:39 WBC 8.00 RBC 3.88 L Hgb 11.7 L Hct 38.0 MCV 98 MCH 30 MCHC 31 L Plt Count 123 L Sodium 144 Potassium 4.7 Chloride 117 H Carbon Dioxide 20 Anion Gap 7 BUN 50 H Creatinine 2.1 H Estimated Creat Clear 38.35 Estimated GFR 35 Glucose 165 H Lactate 0.9 Calcium 8.0 L Phosphorus 4.3 Albumin 3.2 L
[2024-04-08 15:00] VITALS: BP 207/103; PULSE 66; PULSE 77; RESP 16; RESP 20; TEMP 37.1; O2SAT 95
--- NOTE | 2024-04-08 15:09 | REH.OT ---
OT: Order received, chart reviewed and met with patient, addressing role of OT and reason for referral. Patient with flat affect, declines any OT needs, is up independently managing self cares mod I, has assist from spouse at home prn per his report. Spoke with RN and PT who also report patient has not presented with any need for inpatient OT. Patient and team aware OT can be reconsulted if any new needs arise during hospitalization.
[2024-04-08] MEDS: 0.9 % SODIUM CHLORIDE 1000 ml 1,000 ML 75 ML IV (17:53)
[2024-04-08] MEDS: INSULIN ASPART 100 UNIT/ML SUBCUT (18:00)
[2024-04-08 19:00] VITALS: BP 197/104; PULSE 76; RESP 20; TEMP 36.9; O2SAT 97
[2024-04-08] MEDS: TOLTERODINE TARTRATE 2 MG CAP.ER.24H PO (20:16)
--- NOTE | 2024-04-08 23:28 | PC.NURSE ---
Shift Note: NG removed this afternoon and pt advanced to clears. He is tolerating this well and denies pain. BS hypoactive, he does also report flatus but no BM this shift. Pt was encouraged to ambulate 3 times and has declined. He moves independently throughout his room to use the BR, but has not ventured on longer walks. BP's hypertensive, scheduled Metoprolol and Coreg given.
[2024-04-09 00:15] VITALS: BP 153/94; PULSE 69; RESP 18; TEMP 36.6; O2SAT 94
[2024-04-09] MEDS: METOPROLOL TARTRATE 1 MG/ML inj 5 MG IVP ×3 (00:25→09:02)
[2024-04-09] MEDS: SODIUM CHLORIDE 0.9 % (FLUSH) 10 ML SYRINGE 5 ML IVF (00:26)
[2024-04-09 01:15] VITALS: PULSE 67
[2024-04-09 03:45] VITALS: BP 172/100; PULSE 65; RESP 18; O2SAT 94
[2024-04-09] MEDS: PIPERACILLIN/TAZOBACTAM 3.375 GM in 0.9 % SODIUM CHLORIDE Mini-bag 100 ML IVPB (03:58)
[2024-04-09 06:20] LABS: Basophils Absolute Auto 0.01 K/uL (0.00-0.30); Basophils Percent Auto 0.1 % (0.0-3.0); Eosinophils Absolute Auto 0.17 K/uL (0.00-0.50); Eosinophils Percent Auto 2.3 % (0.0-7.0); Hematocrit 35.9 % (37.0-53.0); Hemoglobin* 11.3 gm/dL (13.5-17.5); Immature Granulocytes Abs Auto 0.03 K/uL (0.00-0.30); Immature Granulocytes Pct Auto 0.4 %; Lymphocytes Percent Auto 10.6 % (20-44); Mean Corpuscular HGB Conc 32 gm/dL (32-36); Mean Corpuscular Hemoglobin 30 pg (26-34); Mean Corpuscular Volume 97 fL (80-100); Monocytes Percent Auto 5.5 % (0.0-11.0); Neutrophils Percent Auto 81.1 % (42.0-72.0); Platelet Count* 121 K/uL (140-440); RDW Coefficient of Variation % 15.2 % (11.5-15.5); Red Blood Count 3.72 m/uL (4.30-5.90); White Blood Count* 7.48 K/uL (4.50-11.00)
[2024-04-09 06:22] LABS: Slide Review Reflex No
[2024-04-09 06:26] LABS: Lactate* 1.4 mmol/L (0.5-1.9)
--- NOTE | 2024-04-09 06:47 | PC.NURSE ---
END OF SHIFT NOTE: A&O. PT DENIES CP, SOB, N/V. AMBULATES INDEPENDENTLY. 0200 ACCU CHECK 122-NO SS GIVEN PER PROTOCOL. CIWA 0. TELE NSR. TOLERATING CLEAR LIQUID DIET. NO BM. BS ACTIVE. UNEVENTFUL SHIFT.
[2024-04-09 07:03] LABS: Chloride* 111 mmol/L (96-114); Sodium* 141 mmol/L (135-149)
[2024-04-09 07:04] LABS: Potassium* 4.1 mmol/L (3.6-5.1)
[2024-04-09 07:06] LABS: Anion Gap 10 mEq/L (7-15); Blood Urea Nitrogen* 40 mg/dL (7-30); Carbon Dioxide* 20 mmol/L (20-32); Est. Creatinine Clearance* 40.26; Estimated Glomerular Filt Rate 37 ml/min
[2024-04-09 07:07] LABS: Calcium* 7.8 mg/dL (8.4-10.6); Glucose* 119 mg/dL (60-115)
[2024-04-09 07:54] VITALS: BP 192/90; PULSE 62; RESP 18; TEMP 36.8; O2SAT 96
[2024-04-09 08:03] VITALS: PULSE 65
--- NOTE | 2024-04-09 08:17 | CRLHL7_ITS ---
For Patients: As a result of the Century Cures Act, medical imaging exams and procedure reports are released immediately into your electronic medical record. You may view this report before your referring provider. If you have questions, please contact your health care provider. Indication: Abdominal distention, no bowel movement Technique: Abdomen 1 view. Comparison: Abdominal radiograph 04/06/2024. Findings/Impression: Bowel: Nonobstructive bowel gas pattern, though small bowel loops are mostly fluid-filled, limiting evaluation. Soft tissues: No sign of free air. No suspicious calcifications. Bones: Moderate degenerative disease of the lumbar spine. Dictated by Dennise Ventura MD @ 04/09/2024 9:07:22 AM (Electronically Signed)
[2024-04-09] MEDS: TAMSULOSIN HCL 0.4 MG CAPSULE PO (08:58)
[2024-04-09] MEDS: carvediloL 25 MG TABLET 50 MG PO (08:59)
[2024-04-09] MEDS: APIXABAN 5 MG TABLET PO (08:59)
[2024-04-09] MEDS: BUMETANIDE 1 MG TABLET 3 MG PO (08:59)
[2024-04-09] MEDS: AMLODIPINE 5 MG TABLET PO (08:59)
[2024-04-09] MEDS: INSULIN GLARGINE,HUM.REC.ANLOG 100 UNIT/ML INSULN.PEN 10 UNIT SUBCUT (09:01)
[2024-04-09] MEDS: PANTOPRAZOLE SODIUM 40 MG INJ IVP (09:02)
--- NOTE | 2024-04-09 14:58 | P.DS_ITS ---
DS: Providers Provider Date Seen: 04/09/24 Date of admission: 04/06/24 15:43 Primary care physician: Ru Severino MD Admitting Clinician: Mimi Martini MD Consults: 04/06/24 15:53 Consult to Physician [CONS] Routine Comment: Consulting Provider: Irais Payton Has provider been notified: Yes 04/07/24 09:23 Consult to Occupational Therapy [CONS] Routine Comment: Reason(s) for OT Consult:: Evaluate and Treat Any Restrictions?:: No Restrictions Consult to Physical Therapy [CONS] Routine Comment: Reason(s) for PT Consult:: Evaluate and Treat Any Restrictions?:: No Restrictions Attending Physician on discharge: Jayme Vital MD Date of Discharge: 04/09/24 DS: Diagnosis Discharge Diagnosis (1) Abdominal pain: Status: Acute Problem details: - Cause remains uncertain. Considerations include mesenteric ischemia, various kinds of enteritis, ileus. Possibly multifactorial from underlying diabetic gastroparesis plus another process such as a gastroenteritis. - 04/08/2024: Patient indicates subjective improvement of 60% compared to admission - 04/09/2024: Patient back to baseline (2) Vomiting: Status: Acute Problem details: - Uncertain cause but related to abdominal pain. - 04/08/2024: No further vomiting since NG tube placement. Still has moderate volume NG tube output. NG tube clamped. Will monitor. - 04/09/2024: NG tube removed. Tolerated advancing diet to soft. (3) Adynamic ileus: Status: Acute (4) Diabetic gastroparesis: Status: Acute Problem details: Chronic diagnosis though patient reports not being aware of it Restarted usual metoclopramide 10 mg twice daily (5) Pneumonia: Status: Acute Problem details: Seen on CT scan at the base of the lungs. Monitor, Zosyn, O2 as needed. In time tolerated room air and did not require additional oxygen supplementation. Transition to Augmentin 875/1251 tab p.o. b.i.d. at time of discharge. (6) Demand ischemia of myocardium: Status: Acute Problem details: - Monitor and trend. Supportive care and modified risk factors. Asphalt Dauber suggest most likely this is demand ischemia, type 2 myocardial infarction. - no apparent symptoms. Trope I gradually normalized. (7) Paroxysmal A-fib: Status: Acute Problem details: - Has been in and out of AFib with fairly good rate control on the day of admission, 04/06/2024. Already on chronic Eliquis. Will add in IV metoprolol for rate control as well as NSTEMI - restarted various antihypertensive medications (8) Elevated troponin: Status: Acute (9) Chronic anticoagulation: Status: Chronic Problem details: - 04/07/2024: Restart apixaban 5 mg twice daily (10) History of pulmonary embolism: Status: Acute Problem details: - Unprovoked 04/16/23. Continue with apixaban. (11) Morbid obesity: Status: Chronic (12) Hypertensive heart and chronic kidney disease stage 3: Status: Chronic (13) GERTRUDE on CPAP: Status: Chronic Problem details: Not reliably using home CPAP (14) Narcolepsy: Status: Chronic (15) Primary hypertension: Status: Chronic Problem details: Added amlodipine 5 mg daily to his usual antihypertensive regimen due to hypertension throughout most was hospital stay (16) Venous stasis: Status: Chronic (17) PVD (peripheral vascular disease): Status: Chronic (18) Microalbuminuria due to type 2 diabetes mellitus: Status: Chronic (19) Type 2 diabetes mellitus, with long-term current use of insulin: Status: Chronic Problem details: While NPO will reduce basal insulin and provide sliding scale and adjust as needed Changed back to usual home regimen at time of discharge (20) Mixed hyperlipidemia: Status: Chronic (21) Diabetic polyneuropathy: Status: Chronic (22) Thrombocytopenia: Status: Chronic DS: Summary Hospital Course Hospital Course: Admission history of present illness: ?Magen Luu is a 63 year old male this 63-year-old male with diabetes, obesity and history of PE on Eliquis who presents with a 1 day history of abdominal pain and vomiting. He reports he was generally feeling fine yesterday. About 11 30 last night he felt chills and dyspnea. He had out of bed and went to sit in a recliner which helped with his dyspnea. He did not sleep well however and at about 3:50 a.m. this morning he had a emesis. He thought the appearance the emesis was a dark brown in color. He has had frequent, recurrent large amounts of emesis which are similar in appearance since that time. He notes that he gets abdominal pain and when he has an emesis he feels better. He has had a few small loose stools. He had 1 on arrival to the floor this afternoon and he described as light brown and watery. He has not had black or bloody stools. ?Reports no previous history of abdominal problems similar to this. He has not had previous abdominal surgery. He does have an umbilical hernia which is not bothering him. He had colonoscopy in April of 2018 with a recommend repeat in 5 years ?One year ago he had a pulmonary embolism and has been on chronic Eliquis since that time. He has stage 3 kidney disease and is followed by a bagger and stock handler helper for this evaluation suggests that this is due to diabetic nephropathy with nephrotic range proteinuria.? His sepsis like presentation improved with IV fluids and IV antibiotics. Treated for pneumonia as specified above. In time we were able to ascertain that he had an adynamic ileus likely in association with an acute gastroenteritis and underlying baseline diabetic gastroparesis. Required NG tube placement for several days before we were able to clamp it and then eventually remove it. Tolerated advancing diet and discharged. For details of additional diagnosis please see details above. Status at Discharge Functional status at discharge: independent ambulation Overall status at discharge: patient is progressing back to baseline Time Spent with Patient Time attestation: Total time spent providing and/or coordinating discharge services: Time spent: Greater than 30 minutes Specific discharge activities: 40 minutes Exam Narrative: Exam Narrative: I examine him in his hospital room. Appears comfortable and in no acute distress. Awake, alert, and oriented times 4. Friendly and cooperative. Full neck. Neck is supple. Fine end inspiratory crackles both bases otherwise lungs are clear without wheezing, rhonchi, or rales. Heart tones with regular rhythm, normal S1-S2. Abdomen is protuberant. Few scattered bowel sounds. No borborygmi. Soft and nontender. Trace edema pretibially bilaterally only. Skin is dry and intact. No focal motor neurologic deficits. Const: Vital Signs, click to edit/add: Vital Signs - 24 hr 04/08/24 15:00 04/08/24 15:00 04/08/24 15:00 Temperature 98.7 F Pulse Rate 77 Pulse Rate [Right Pulse Oximeter] 66 66 Respiratory Rate 16 20 Blood Pressure [Le ft Arm] Blood Pressure [Ri ght Arm] 207/103 H Pulse Oximetry 95 Oxygen Delivery Me thod Room Air 04/08/24 19:00 04/09/24 00:15 04/09/24 00:15 Temperature 98.4 F 97.8 F Pulse Rate Pulse Rate [Right Pulse Oximeter] 76 69 69 Respiratory Rate 20 18 18 Blood Pressure [Le ft Arm] 153/94 H Blood Pressure [Ri ght Arm] 197/104 H Pulse Oximetry 97 94 Oxygen Delivery Me thod Room Air Room Air 04/09/24 01:15 04/09/24 03:45 04/09/24 03:45 Temperature Pulse Rate 67 Pulse Rate [Right Pulse Oximeter] 65 65 Respiratory Rate 18 18 Blood Pressure [Le ft Arm] Blood Pressure [Ri ght Arm] 172/100 H 172/100 H Pulse Oximetry 94 94 Oxygen Delivery Me thod Room Air Room Air 04/09/24 07:54 04/09/24 08:03 Temperature 98.3 F Pulse Rate 65 Pulse Rate [Right Pulse Oximeter] 62 Respiratory Rate 18 Blood Pressure [Le ft Arm] Blood Pressure [Ri ght Arm] 192/90 H Pulse Oximetry 96 Oxygen Delivery Me thod Room Air DS: Data Data Completed and Pending Labs on day of discharge: Labs from last 24 hours 04/09/24 06:08 WBC 7.48 RBC 3.72 L Hgb 11.3 L Hct 35.9 L MCV 97 MCH 30 MCHC 32 RDW Coeff of Bill 15.2 Plt Count 121 L Neut % (Auto) 81.1 H Lymph % (Auto) 10.6 L [place] % (Auto) 5.5 Eos % (Auto) 2.3 Baso % (Auto) 0.1 Neut # (Auto) 6.10 Lymph # (Auto) 0.80 L [place] # (Auto) 0.40 Eos # (Auto) 0.17 Baso # (Auto) 0.01 Abs Immat Gran (auto) 0.03 Imm/Tot Granulo (auto) 0.4 Sodium 141 Potassium 4.1 Chloride 111 Carbon Dioxide 20 Anion Gap 10 BUN 40 H Creatinine 2.0 H Estimated Creat Clear 40.26 Estimated GFR 37 Glucose 119 H Lactate 1.4 Calcium 7[address] scan - chest, abdomen, pelvis: Attestation: I have reviewed the pertinent imaging results. Radiologist's impression: 1. Several loops of dilated small bowel seen throughout the abdomen measuring up to approximately 4.9 centimeters in diameter without clearly delineated transition point, suggestive of adynamic ileus, although small bowel obstruction can not entirely be excluded. Recommend consultation with surgery. 2. Questionable pneumatosis intestinalis versus more likely intraluminal gas seen scattered throughout the small bowel. 3. No free fluid or free air. 4. Examination of the lungs is limited secondary to motion artifact; however, there are some small patchy airspace opacities in the bilateral lung bases, concerning for pneumonia. Abdominal x-ray: Attestation: I have reviewed the pertinent imaging results. Radiologist's impression: When he 1st presented: Findings: Enteric tube with tip in the stomach. Mildly dilated small bowel. No large pneumoperitoneum. Visualized lung bases are clear. Impression: Enteric tube with tip in the stomach. Mildly dilated small bowel may represent small-bowel obstruction versus ileus. Day prior to discharge: Findings/Impression: Bowel: Nonobstructive bowel gas pattern, though small bowel loops are mostly fluid-filled, limiting evaluation. Soft tissues: No sign of free air. No suspicious calcifications. Bones: Moderate degenerative disease of the lumbar spine. Discharge Plan Discharge Disposition: Home, Self-Care Date of Admission: 04/06/24 15:43 Attending Provider on Discharge: Jayme Vital Consulting Providers: Irais Payton Primary Care Provider: Ru Severino Condition: Improved Anticipated Discharge Date/Time: 04/09/24 13:00 Discharge Medications: New amlodipine 5 mg Tablet 5 mg PO DAILY 30 Days Qty: 30 1RF amoxicillin-pot clavulanate 875-125 mg tablet 1 tab PO BID Qty: 10 0RF Continued modafinil 100 mg tablet 100 mg PO BID PRN Jardiance 10 mg tablet 10 mg PO DAILY bumetanide 1 mg tablet 3 mg PO DAILY tolterodine 2 mg capsule,extended release 24hr 2 mg PO HS albuterol sulfate 90 mcg/actuation HFA aerosol inhaler 2 puff INHALATION Q4H PRN Patient Comments: INHALE 2 PUFFS BY MOUTH EVERY 4 HOURS NEEDED FOR WHEEZING OR DIFFICULT BREATHING hydralazine 25 mg tablet 75 mg PO BID tamsulosin 0.4 mg capsule 0.4 mg PO DAILY fluticasone propionate [Flonase Allergy Relief] 50 mcg/actuation spray,suspension 2 spray intranasal DAILY PRN Rx Instructions: administer into each nostril metformin 500 mg tablet extended release 24 hr 1,000 mg PO BIDWM insulin aspart U-100 100 unit/mL (3 mL) insulin pen 10 - 15 unit SUBCUT TIDWM MDD 45 metoclopramide HCl 10 mg tablet 10 mg PO TID PRN (Reason: nausea and vomiting) Qty: 270 1RF gabapentin 400 mg capsule 400 mg PO BID Qty: 180 0RF Eliquis 5 mg tablet 5 mg PO BID Qty: 60 4RF carvedilol 25 mg tablet 50 mg PO BID Qty: 360 2RF insulin glargine [Basaglar KwikPen U-100 Insulin] 100 unit/mL (3 mL) insulin pen 60 unit subcut QAM Qty: 60 1RF Discharge Orders: Discharge Order (Routine); Ordered 04/09/24 Ordered By: Jayme Vital Patient Education: Amoxicillin/Clavulanate Potassium (By mouth), Amlodipine (By mouth), Diabetic Gastroparesis (DC), Community Acquired Pneumonia (DC) Additional Instructions: 1. Follow-up with Dr. Severino in 5-7 days for follow-up status post hospitalization, including adynamic ileus, pneumonia, and elevated blood preasures 2. Return to clinic or hospital sooner if needed 3. In time will need to discuss with your primary ambulatory care the idea of possibly obtaining a gastroenterology consultation regarding diabetic gastroparesis 4. Continue with all treatment recommendations, including regular use of CPAP for obstructive sleep apnea Activity Level: No Restrictions and Activity as Tolerated Activity Detail: Walk a minimum of 6 times daily - gradually increase distance and duration Discharge Diet: Diabetic Follow Up Appointments: Ru Severino MD [Primary Care Provider] - 04/20/24 10:15 am ([facility] for follow-up with PCP) Forms: [employer] Info Instructions
== END 2024-04-09 12:45 | disposition home or self-care (01) | DRG 247 ==
LOC: ED 14:26 → MEDSURG 14:46
PROVIDERS: Internal Medicine; Admitting Provider Family Medicine; Emergency Provider Emergency Medicine Emergency Medical Services; PCP Family Medicine; Visit Provider Family Medicine
DX: K56.0 Paralytic ileus (principal); K52.9 Noninfective gastroenteritis and colitis, unspecified; E11.43 Type 2 diabetes mellitus with diabetic autonomic (poly)neuropathy; K31.84 Gastroparesis; J18.9 Pneumonia, unspecified organism; I21.A1 Myocardial infarction type 2; I48.0 Paroxysmal atrial fibrillation; R10.9 Unspecified abdominal pain; R11.10 Vomiting, unspecified; Z79.01 Long term (current) use of anticoagulants; E11.65 Type 2 diabetes mellitus with hyperglycemia; E11.22 Type 2 diabetes mellitus with diabetic chronic kidney disease; I12.9 Hypertensive chronic kidney disease with stage 1 through stage 4 chronic kidney disease, or unspecified chronic kidney disease; N18.30 Chronic kidney disease, stage 3 unspecified; R80.8 Other proteinuria; Z79.4 Long term (current) use of insulin; Z79.84 Long term (current) use of oral hypoglycemic drugs; E11.51 Type 2 diabetes mellitus with diabetic peripheral angiopathy without gangrene; I73.9 Peripheral vascular disease, unspecified; D69.6 Thrombocytopenia, unspecified; R06.02 Shortness of breath; G47.33 Obstructive sleep apnea (adult) (pediatric); E66.01 Morbid (severe) obesity due to excess calories; Z68.41 Body mass index [BMI] 40.0-44.9, adult; G47.419 Narcolepsy without cataplexy; E78.2 Mixed hyperlipidemia; Z86.711 Personal history of pulmonary embolism; K42.9 Umbilical hernia without obstruction or gangrene; I87.8 Other specified disorders of veins
CPT/HCPCS: 36415; 71250; 74018; 74176; 80048; 80069; 80076; 82803; 82962; 83605; 83690; 83735; 83986; 84484; 85025; 85027; 93005; 93306; 97161; 99285; A9270; J0780; J1815; J2405; J2470; J2543; J3411; J7030; Q9957

== ENCOUNTER 2024-06-07 08:06 | Outpatient (CLI) | payer BC, SELFPAY | END 2024-06-07 08:07 | disposition home or self-care (01) | PROVIDERS: PCP Family Medicine; Visit Provider Family Medicine | DX: Z09 Encounter for follow-up examination after completed treatment for conditions other than malignant neoplasm (principal) | CPT/HCPCS: 80048; 80061; 85025 ==

== ENCOUNTER 2024-06-07 22:30 | Outpatient (REF) | payer BC, SELFPAY ==
[2024-06-08 01:06] LABS: Hemoglobin* 12.8 gm/dL (13.5-17.5)
[2024-06-08 01:18] LABS: Appearance Urine Slightly Cloudy (Clear); Bacteria Urine Few; Bilirubin Urine Negative (Negative); Blood Urine Negative (Negative); Color Urine Yellow (Yellow); Glucose Urine 2+ (Negative); Ketones Urine Negative (Negative); Leukocyte Esterase Urine Trace (Negative); Nitrite Urine Negative (Negative); Protein Urine 3+ (Negative); RBC Urine 0-2 (0-2); Specific Gravity Urine >= 1.030 (1.000-1.030); Squamous Epithelial Cell Urine Few (None-Few); Urobilinogen Urine 0.2 (0.2-1.0); pH Urine 5.5 (5.0-8.5)
[2024-06-08 01:19] LABS: Amorphous Sediment Urine Moderate
[2024-06-08 02:24] LABS: Albumin* 3.4 g/dL (3.3-5.0)
[2024-06-08 02:27] LABS: Aspartate Amino Transferase* 13 U/L (12-35); Bilirubin Direct* 0.2 mg/dL (0.0-0.5); Bilirubin Total* 0.3 mg/dL (0.1-1.5); Total Protein* 5.6 g/dL (6.0-8.3)
[2024-06-08 02:28] LABS: Alanine Aminotransferase* 9 U/L (4-50); Alkaline Phosphatase* 79 U/L (40-150)
[2024-06-08 03:20] LABS: PTH Intact* 44.4 pg/mL (14.2-75.2)
[2024-06-08 03:57] LABS: Creatinine Urine Random 109 mg/dL
== END 2024-06-07 22:31 | disposition home or self-care (01) ==
LOC: NPINS 22:30
PROVIDERS: PCP Family Medicine; Visit Provider Nurse Practitioner Family
DX: Z09 Encounter for follow-up examination after completed treatment for conditions other than malignant neoplasm (principal)
CPT/HCPCS: 80048; 80061; 80076; 81001; 82570; 83970; 85018; 85025; 87086

== ENCOUNTER 2024-06-11 13:50 | Outpatient (CLI) | payer BC, SELFPAY ==
[2024-06-11 14:31] LABS: Creatinine Urine 86.8 mg/dL
[2024-06-11 16:08] LABS: Microalbumin Creatinine Ratio 8300 mg/g (0-30); Microalbumin Urine 721 mg/dL
== END 2024-06-11 13:51 | disposition home or self-care (01) ==
LOC: NPINS 13:54
PROVIDERS: PCP Family Medicine; Visit Provider Nurse Practitioner Family
DX: I10 Essential (primary) hypertension (principal)
CPT/HCPCS: 82043; 82570

== ENCOUNTER 2024-07-13 11:35 | Outpatient (CLI) | payer BC, SELFPAY ==
[2024-07-13 13:57] LABS: Albumin* 3.3 g/dL (3.3-5.0); Chloride* 109 mmol/L (96-114); Sodium* 139 mmol/L (135-149)
[2024-07-13 13:58] LABS: Potassium* 5.2 mmol/L (3.6-5.1)
[2024-07-13 14:00] LABS: Anion Gap 6 mEq/L (7-15); Blood Urea Nitrogen* 40 mg/dL (7-30); Carbon Dioxide* 24 mmol/L (20-32); Creatinine* 1.7 mg/dL (0.5-1.5); Estimated Glomerular Filt Rate 45 ml/min; Glucose* 100 mg/dL (60-115)
[2024-07-13 14:01] LABS: Calcium* 8.9 mg/dL (8.4-10.6); Phosphorus* 4.4 mg/dL (2.5-4.5)
[2024-07-13 17:02] LABS: Creatinine Urine 87.1 mg/dL
[2024-07-13 20:21] LABS: Microalbumin Creatinine Ratio 9820 mg/g (0-30); Microalbumin Urine 856 mg/dL
== END 2024-07-13 11:36 | disposition home or self-care (01) ==
LOC: NPINS 11:39
PROVIDERS: PCP Family Medicine; Visit Provider Internal Medicine Nephrology
DX: N18.32 Chronic kidney disease, stage 3b (principal)
CPT/HCPCS: 80069; 82043; 82570; 84156

== ENCOUNTER 2024-07-15 10:32 | Outpatient (CLI) | payer BC, SELFPAY ==
[2024-07-15 13:53] LABS: Creatinine Urine 63.4 mg/dL
[2024-07-15 13:58] LABS: Total Protein Urine 482 mg/dL
[2024-07-15 14:05] LABS: Collection Time Urine 24 Hours; Total Volume 24 Hour Urine 1850 ml; Urine Creatinine mg/24 Hour 1173 mg/Day
== END 2024-07-15 10:33 | disposition home or self-care (01) ==
LOC: NPINS 10:36
PROVIDERS: PCP Family Medicine; Visit Provider Internal Medicine Nephrology
DX: N18.32 Chronic kidney disease, stage 3b (principal)
CPT/HCPCS: 82570; 84156

== ENCOUNTER 2024-10-21 11:05 | Outpatient (CLI) | payer BC, SELFPAY ==
[2024-10-21 13:48] LABS: Hemoglobin* 13.6 gm/dL (13.5-17.5)
[2024-10-21 13:50] LABS: Albumin* 3.6 g/dL (3.3-5.0); Chloride* 108 mmol/L (96-114); Potassium* 5.2 mmol/L (3.6-5.1); Sodium* 138 mmol/L (135-149)
[2024-10-21 13:53] LABS: Anion Gap 9 mEq/L (7-15); Blood Urea Nitrogen* 39 mg/dL (7-30); Calcium* 8.9 mg/dL (8.4-10.6); Carbon Dioxide* 21 mmol/L (20-32); Creatinine* 1.9 mg/dL (0.5-1.5); Estimated Glomerular Filt Rate 39 ml/min; Glucose* 148 mg/dL (60-115); Phosphorus* 4.2 mg/dL (2.5-4.5)
[2024-10-21 14:37] LABS: PTH Intact* 61.5 pg/mL (14.2-75.2)
[2024-10-21 20:16] LABS: Creatinine Urine 62.3 mg/dL
[2024-10-21 20:17] LABS: Microalbumin Creatinine Ratio 6960 mg/g (0-30); Microalbumin Urine 434 mg/dL
== END 2024-10-21 11:06 | disposition home or self-care (01) ==
LOC: NPINS 11:06
PROVIDERS: PCP Family Medicine; Visit Provider Internal Medicine Nephrology
DX: N18.32 Chronic kidney disease, stage 3b (principal)
CPT/HCPCS: 80069; 82043; 82570; 83970; 85018

== ENCOUNTER 2025-02-22 10:43 | Outpatient (CLI) | payer BC, SELFPAY ==
[2025-02-22 14:03] LABS: Albumin* 3.4 g/dL (3.3-5.0); Chloride* 109 mmol/L (96-114); Potassium* 5.0 mmol/L (3.6-5.1); Sodium* 139 mmol/L (135-149)
[2025-02-22 14:06] LABS: Anion Gap 7 mEq/L (7-15); Blood Urea Nitrogen* 38 mg/dL (7-30); Calcium* 8.8 mg/dL (8.4-10.6); Carbon Dioxide* 23 mmol/L (20-32); Creatinine* 1.9 mg/dL (0.5-1.5); Estimated Glomerular Filt Rate 39 ml/min; Glucose* 92 mg/dL (60-115)
== END 2025-02-22 10:44 | disposition home or self-care (01) ==
LOC: NPINS 10:44
PROVIDERS: PCP Family Medicine; Visit Provider Internal Medicine Nephrology
DX: N18.32 Chronic kidney disease, stage 3b (principal)
CPT/HCPCS: 80069; 82043; 82570

== ENCOUNTER 2025-06-14 14:08 | Outpatient (CLI) | payer BC, SELFPAY | END 2025-06-14 14:09 | disposition home or self-care (01) | PROVIDERS: PCP Family Medicine; Visit Provider Family Medicine | DX: E11.9 Type 2 diabetes mellitus without complications (principal); Z79.4 Long term (current) use of insulin; E78.2 Mixed hyperlipidemia; Z12.5 Encounter for screening for malignant neoplasm of prostate; I10 Essential (primary) hypertension | CPT/HCPCS: 80048; 80061; 84460; 85025; G0103 ==